=== PATIENT | female | born 1945 | race Caucasian/White ===

== ENCOUNTER 2016-04-23 13:13 | Inpatient (IN) | payer OTHER ==
[~2016-04-23] VITALS: Ht 149.9 cm; Wt 48.4 kg
[~2016-04-23 13:13] MED LIST: CALC600T21 PO; SIMV40TA2 PO; VITA100037 PO; [UNRECOGNIZED DRUG - CODE] TD
[2016-04-23] MEDS ORDERED: ONDANSETRON 4MG/2ML VIAL (J2405) As Ordered ONE (15:07)
[2016-04-23 15:31] LABS: BASO # 0.4 K/mm3 (0.0-0.2); BASO % 1.5 % (0.0-1.0); EOS # 0.1 K/mm3 (0.0-0.50); EOS % 0.2 % (0.0-3.0); LARGE UNSTAINED CELL # 0.2 K/mm3 (0.0-0.4); LARGE UNSTAINED CELL % 0.6 % (0.0-4.0); LYMPH % 2.8 % (24.0-44.0); MEAN CORPUSCULAR HEMOGLOBIN 23.9 pg (27.0-33.0); MEAN CORPUSCULAR VOLUME 74.7 fl (80.0-96.0); MONO # 1.7 K/mm3 (0.0-0.8); MONO % 5.9 % (0.0-5.0); NEUTROPHILS # 25.6 K/mm3 (1.8-7.7); NEUTROPHILS % 88.9 % (36.0-66.0); PLATELET COUNT, AUTOMATED 509 k/mm3 (150-450); RED CELL DISTRIBUTION WIDTH 13.9 % (11.5-14.5); WHITE BLOOD COUNT 28.8 K/mm3 (4.0-10.0)
[2016-04-23 15:38] LABS: INR 1.01
[2016-04-23 15:56] LABS: ALBUMIN/GLOBULIN RATIO 0.83 (1.00-1.93); ALKALINE PHOSPHATASE 62 U/L (45-117); ALT/SGPT 16 U/L (12-78); ANION GAP 13 MEQ/L (8-16); AST/SGOT 8 U/L (15-37); BILIRUBIN,DIRECT 0.1 MG/DL (0.0-0.2); BILIRUBIN,TOTAL 0.6 MG/DL (0.2-1.0); BLOOD UREA NITROGEN 26 MG/DL (7-18); CALCIUM LEVEL 10.1 MG/DL (8.8-10.2); CARBON DIOXIDE LEVEL 31 MEQ/L (21-32); CHLORIDE LEVEL 90 MEQ/L (98-107); CREATININE FOR GFR 1.12 MG/DL (0.55-1.02); GLOMERULAR FILTRATION RATE 51.3 (>45); GLUCOSE, FASTING 117 MG/DL (80-110); POTASSIUM SERUM 3.9 MEQ/L (3.5-5.1); SODIUM LEVEL 134 MEQ/L (136-145); TOTAL PROTEIN 8.8 GM/DL (6.4-8.2)
[2016-04-23] MEDS ORDERED: ISOVUE-370 76% 100ML VIAL (Q9967) As Ordered ONE (16:11)
--- NOTE | 2016-04-23 16:26 | REP ---
Clinical: Cough. Technique: PA and lateral. Comparison: 05/08. Findings: Subtle medial right basilar atelectasis cannot be excluded and should be correlated with auscultation. No further consolidation, effusion, or pneumothorax. Mediastinum and cardiac silhouette normal. Skeletal structures intact. Impression: Subtle medial right basilar atelectasis cannot be excluded. Signed by Shay Block MD 04/23/2016 04:17 P
[2016-04-23] MEDS ORDERED: PRED20TA PO (16:35)
[2016-04-23] MEDS ORDERED: ANAS1TAB PO (16:35)
[2016-04-23] MEDS ORDERED: BIOT10005 PO (16:35)
[2016-04-23] MEDS ORDERED: SIMV20TA2 PO (16:35)
[2016-04-23] MEDS ORDERED: CALC600T10 PO (16:35)
[2016-04-23] MEDS ORDERED: AZIT250T3 PO (16:35)
[2016-04-23] MEDS ORDERED: FISH5CAP PO (16:35)
[2016-04-23] MEDS ORDERED: PROA1AER INH (16:35)
--- NOTE | 2016-04-23 16:45 | REP ---
Clinical: Abdominal pain. Technique: Axial contrast enhanced images from the lung bases to the pubic symphysis using 100 ml Isovue 370 intravenous contrast material with coronal and sagittal re-formations. Comparison: 11/12/2015. Findings: There is dilatation to the proximal jejunum secondary to obstruction by a moderate segment of mid jejunum demonstrating mural thickening and perienteric stranding along with diffuse adjacent mesenteric adenopathy (images 36 - 85) there is associated small amount of ascites within the pelvis. The remainder of the small large bowel is relatively normal in appearance. Liver, spleen, pancreas, gallbladder, bilateral adrenal glands and kidneys are normal. Pelvis demonstrates normal bladder and evidence for prior hysterectomy. No free air. Vascular structures demonstrate mild atherosclerotic changes without aneurysm. Skeletal structures demonstrate degenerative changes without focal osseous abnormality. Lung bases demonstrate right middle lobe and right lower lobe subtle infiltrates which may reflect acute versus resolving pneumonia. Impression: 1. Focal area of jejunal thickening with inflammatory stranding and adenopathy causing proximal obstruction and dilatation to the proximal jejunum. Differential diagnosis includes malignancy including lymphoma as well as infectious/inflammatory enteritis. Small amount of free fluid without drainable collection/abscess noted in the pelvis. 2. Subtle right basilar and right middle lobe alveolar infiltrates suggesting early acute versus resolving pneumonia. Signed by Shay Block MD 04/23/2016 04:37 P
[2016-04-23] MEDS ORDERED: ZOSYN 3.375 GM VIAL (J2543) As Ordered ONE (18:15)
[2016-04-23] MEDS ORDERED: KETOROLAC 30 MG/ML VIAL (J1885) IV PRN (21:30)
[2016-04-23] MEDS ORDERED: MORPHINE 2 MG/ML 1ML SYRINGE IV PRN (21:30)
--- NOTE | 2016-04-23 22:15 | EDDOCDS ---
Physician Documentation [facility] Name: Patricia Sargent Age: 70 yrs Sex: Female : 1945 Arrival Date: 04/23/2016 Time: 13:13 Bed 15 Private MD: Orlando Waggoner Disposition: 04/23/16 18:16 Hospitalization ordered by Nael Amaya for Inpatient Admission. Preliminary diagnosis are Upper abdominal pain, unspecified, Vomiting, Other intestinal obstruction. - Bed requested for 4 [place]. - Status is Inpatient Admission. [facility] [place] - Condition is Stable. - Problem is new. - Symptoms are unchanged. Historical: - Allergies: no known allergies; - Home Meds: 1. Zocor 20 mg Oral tab 1 tab once daily (Last dose: 04/18/2016) 2. anastrozole 1 mg oral tab 1 tab once daily (Last dose: 04/18/2016) 3. simvastatin 20 mg Oral tab 1 tab once daily hasn't taken due to vomiting 4. albuterol sulfate 90 mcg/actuation Inhl aepb 2 puffs every 4-6 hours 5. prednisone 20 mg Oral tab once daily for 5 days 6. azithromycin 1 gram Oral pack 1 packet daily for 5 days 7. Fish Oil 720-1,200 mg Oral cap daily 8. Calcium Citrate Oral daily 9. biotin 10,000 mcg oral cap daily - PMHx: Cancer, Breast - Right; Cancer, Breast - Left; High Cholesterol; - PSHx: Mastectomy- Bilateral; breast reconstruction surgery; - Social history: Smoking status: Patient states was never smoker of tobacco. No barriers to communication noted, The patient speaks fluent [place]. - Family history: Not pertinent. - : The pt / caregiver states he / she is not on anticoagulants. Home medication list is obtained from the patient. - Exposure Risk Screening:: None identified. Vital Signs: 04/23 13:16 BP 149 / 85; Pulse 119; Resp 18; Temp 96.4(O); Pulse Ox 99% on R/A; Weight 45.36 kg / sar1 100 lbs; Height 4 ft. 11 in. (149.86 cm); Pain 0/10; 18:25 BP 134 / 68; Pulse 103; Resp 20; Temp 98.0(O); Pulse Ox 96% on R/A; Pain 0/10; jml1 20:31 BP 152 / 69; Pulse 95; Resp 20; Temp 98.3(O); Pulse Ox 97% on R/A; Pain 0/10; jmv 21:53 BP 130 / 68; Pulse 91; Resp 16; Temp 98; Pulse Ox 95% ; Pain 0/10; cjh 13:16 Body Mass Index 20.20 (45.36 kg, 149.86 cm) sar1 MDM: 15:00 NS 0.9% 1000 ml IV at bolus once ordered. cc10 15:00 Ondansetron 4 mg IVP once ordered. cc10 15:00 IV Saline Lock ordered. cc10 15:00 Undress patient appropriately for examination ordered. cc10 15:01 Basic Metabolic Profile Ordered. EDMS 15:01 CBC with Diff Ordered. EDMS 15:01 Cardiac Injury Profile Ordered. EDMS 15:01 Lipase Ordered. EDMS 15:01 Liver Profile Ordered. EDMS 15:01 Partial Thromboplastin Time Ordered. EDMS 15:01 Prothrombin Time Profile\E\INR Ordered. EDMS 15:01 Troponin Ordered. EDMS 15:01 Urinalysis Ordered. EDMS 15:01 Urine Culture Ordered. EDMS 15:02 NOTHING BY MOUTH+DIET ordered. EDMS 15:06 ECG WITH READING ER PHYS+CARDIAG ordered. EDMS 15:50 Financial registration complete. [email or web address] 15:50 [facility] [place] was scanned into [employer] and attached to record. [email or web address] 15:59 Basic Metabolic Profile Reviewed. cc10 15:59 CBC with Diff Reviewed. cc10 15:59 Liver Profile Reviewed. cc10 15:59 Cardiac Injury Profile Reviewed. cc10 15:59 Lipase Reviewed. cc10 15:59 Partial Thromboplastin Time Reviewed. cc10 15:59 Prothrombin Time Profile\E\INR Reviewed. cc10 15:59 Troponin Reviewed. cc10 16:02 Chest, 2 View (pa\E\lat) Ordered. EDMS 16:02 CT ABD & PELVIS: IV Contrast Only Ordered. EDMS 16:03 BED REQUEST+ADM ordered. EDMS 18:13 Piperacillin-Tazobactam 3.375 grams IVPB once over 30 mins; dilute in 50mL of NS or D5W mo1 ordered. 18:13 NS 0.9% 1000 ml IV at 250 mL/hr continuous ordered. mo1 21:28 Admission / Observation Status ordered. EDMS 21:28 NPO DIET ordered. EDMS 21:28 BASIC METABOLIC PROFILE Ordered. EDMS 21:32 VITAMIN B12 LEVEL Ordered. EDMS 21:32 FOLATE Ordered. EDMS 21:32 IRON (FE) Ordered. EDMS 21:32 FERRITIN Ordered. EDMS 21:32 TOTAL IRON BINDING CAPACIT Ordered. EDMS Administered Medications: 15:14 Drug: Ondansetron 4 mg [ondansetron HCl 2 mg/mL intravenous solution (2 mL)] Route: jmb IVP; Site: right antecubital; 15:15 Drug: NS 0.9% 1000 ml [sodium chloride 0.9 % intravenous solution] Route: IV; Rate: jmb bolus; Site: right antecubital; 18:24 Drug: Piperacillin-Tazobactam 3.375 grams [piperacillin-tazobactam 3.375 gram jmb intravenous solution] Route: IVPB; Infused Over: 30 mins; Site: right antecubital; 18:24 Drug: NS 0.9% 1000 ml [sodium chloride 0.9 % intravenous solution] Route: IV; Rate: 250 jmb mL/hr; Site: right antecubital; Signatures: Dispatcher [employer] EDMS Heidi Walker RN RN Margarita ArriolaRN RN Rob Hawkins PA PA mo1 Augustus Caldera PA-C PABrielle [id number] Allyson Ordonez RN RN [id number] Melanie Vu, Reg Reg [email or web address] Alireza Cruz RN The chart was reviewed and I authenticate all verbal orders and agree with the evaluation and treatment provided.Corrections: (The following items were deleted from the chart) 18:16 16:03 LACTIC ACID LEVEL, LACTATE+LAB ordered. EDMS EDMS Attachments: 15:50 [facility] [place] Agreement [email or web address]
--- NOTE | 2016-04-23 22:15 | EDDOCDS ---
Nurse's Notes [facility] Name: Patricia Sargent Age: 70 yrs Sex: Female : 1945 Arrival Date: 04/23/2016 Time: 13:13 Bed 15 Private MD: Orlando Waggoner Diagnosis: Upper abdominal pain, unspecified;Vomiting;Other intestinal obstruction Presentation: 04/23 13:31 Presenting complaint: Patient states: that she is unable to eat, weight loss, vomiting. ms18 Pt reports 20 lost since February. PT states that she was seen at urgent care yesterday and told that she might have pneumonia. She also states that her cancer doctor took her off of her "cancer pill" 6 days ago. Adult Sepsis Screening: The patient does not have new or worsening altered mentation. Patient's respiratory rate is less than 22. Systolic blood pressure is greater than 100. Patient has a qSOFA score of 0- Negative Sepsis Screen. Suicide/Homicide risk assessment- the patient denies having any suicidal and/or homicidal ideations and does not present with any other emotional, behavioral or mental health complaints. 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 Transition of care: patient was not received from another setting of care. 13:31 Acuity: GEE Level 3 ms18 13:31 Method Of Arrival: Walkin/Carried/Asstd ms18 Triage Assessment: 13:40 General: Appears in no apparent distress, Behavior is appropriate for age, cooperative. ms18 Pain: Denies pain. Neurological: Level of Consciousness is awake, alert, obeys commands, Oriented to person, place, time. Respiratory: Airway is patent Respiratory effort is even, unlabored. GI: Reports nausea, vomiting, intolerance of food, intolerance of fluids. Derm: Skin is pink, warm & dry. Historical: - Allergies: no known allergies; - Home Meds: 1. Zocor 20 mg Oral tab 1 tab once daily (Last dose: 04/18/2016) 2. anastrozole 1 mg oral tab 1 tab once daily (Last dose: 04/18/2016) 3. simvastatin 20 mg Oral tab 1 tab once daily hasn't taken due to vomiting 4. albuterol sulfate 90 mcg/actuation Inhl aepb 2 puffs every 4-6 hours 5. prednisone 20 mg Oral tab once daily for 5 days 6. azithromycin 1 gram Oral pack 1 packet daily for 5 days 7. Fish Oil 720-1,200 mg Oral cap daily 8. Calcium Citrate Oral daily 9. biotin 10,000 mcg oral cap daily - PMHx: Cancer, Breast - Right; Cancer, Breast - Left; High Cholesterol; - PSHx: Mastectomy- Bilateral; breast reconstruction surgery; - Social history: Smoking status: Patient states was never smoker of tobacco. No barriers to communication noted, The patient speaks fluent Frisian. - Family history: Not pertinent. - : The pt / caregiver states he / she is not on anticoagulants. Home medication list is obtained from the patient. - Exposure Risk Screening:: None identified. Screenin:15 Screening information is obtained from the patient. Fall risk: At risk due to age, jmb weakness. Assistance ADL's: requires no assistance with activities of daily living. Abuse/DV Screen: The patient / caregiver reports he/she is: not in a situation that causes fear, pain or injury. Nutritional screening: No deficits noted. home support is adequate. 22:05 Advance Directives: Currently, there is a health care proxy, Minoo Cale, Friend. There cjh is no active DNR order. There is no living will. There is no Power of Laser Printing Operator. Assessment: 15:15 General: Appears in no apparent distress, Behavior is appropriate for age, cooperative. jmb Pain: Denies pain. Neurological: Level of Consciousness is awake, alert, obeys commands, Oriented to person, place, time, Diagnostic Technician are equal bilaterally Speech is normal, Facial symmetry appears normal, Facial symmetry: tongue is midline. Cardiovascular: Capillary refill < 3 seconds Heart tones present Pulses are all present. Rhythm is regular. Respiratory: Airway is patent Respiratory effort is even, unlabored, Respiratory pattern is regular, symmetrical. Respiratory: Breath sounds are clear bilaterally. GI: Abdomen is non- distended Bowel sounds present X 4 quads. Abd is soft X 4 quads. Derm: Skin is pink, warm & dry. Musculoskeletal: Range of motion intact in all extremities. 16:12 General: Appears in no apparent distress, Behavior is appropriate for age, cooperative, jmb Patient returned from X-ray, going to CT at this time. No voiced complaints at this time.. Neurological: Level of Consciousness is awake, alert, obeys commands, Oriented to person, place, time. Respiratory: Airway is patent Respiratory effort is even, unlabored, Respiratory pattern is regular, symmetrical. 16:45 General: Appears in no apparent distress, comfortable, Behavior is appropriate for age, jmb cooperative, Patient laying on stretcher, appears comfortable. Voices no complaints at this time. . Neurological: Level of Consciousness is awake, alert, obeys commands, Oriented to person, place, time. Respiratory: Airway is patent Respiratory effort is even, unlabored, Respiratory pattern is regular, symmetrical. 17:37 General: Appears in no apparent distress, comfortable, Behavior is appropriate for age, hs1 cooperative, Pt resting in stretcher awaiting further plan of care. Pt aware of waiting for surgeon to call back for consult with provider. No other needs noted at this time. Pt is resting and has not vomited since her arrival to [facility]. . 18:12 General: XIN Becerra in to see her at the present time regarding further plan of care. No hs1 needs noted at present and patient remains comfortable. . 19:30 General: family at bedside, warm blankets provided, Provider at bedside to discuss [facility] treatment plan with patient, no complaints voiced. 20:27 General: Appears in no apparent distress, comfortable, Behavior is appropriate for age, cjh cooperative. Pain: Denies pain. Neurological: Level of Consciousness is awake, alert, Oriented to person, place, time. Respiratory: Airway is patent Respiratory effort is even, unlabored, Respiratory pattern is regular, symmetrical, Breath sounds are clear bilaterally. GI: Abdomen is non- distended Bowel sounds hypoactive in right upper quadrant, left upper quadrant, right lower quadrant and left lower quadrant Abd is soft and non tender X 4 quads. 21:53 General: Appears in no apparent distress, comfortable, Behavior is appropriate for age, cjh cooperative, talking with friends and family on phone, voicing anxiety and nervousness regarding possible diagnosis, declines offer to request pain or anxiety medications, awaiting admission. Vital Signs: 13:16 BP 149 / 85; Pulse 119; Resp 18; Temp 96.4(O); Pulse Ox 99% on R/A; Weight 45.36 kg; sar1 Height 4 ft. 11 in. (149.86 cm); Pain 0/10; 18:25 BP 134 / 68; Pulse 103; Resp 20; Temp 98.0(O); Pulse Ox 96% on R/A; Pain 0/10; jml1 20:31 BP 152 / 69; Pulse 95; Resp 20; Temp 98.3(O); Pulse Ox 97% on R/A; Pain 0/10; jmv 21:53 BP 130 / 68; Pulse 91; Resp 16; Temp 98; Pulse Ox 95% ; Pain 0/10; cjh 13:16 Body Mass Index 20.20 (45.36 kg, 149.86 cm) [facility] [place] Vitals: 13:16 Log In Time: April 23, 2016 at 13:16. [facility] ED Course: 13:15 Patient visited by Nadja Toledo, Brickmason Apprentice. sar1 13:15 Patient moved to Waiting sar1 13:16 Orlando Waggoner MD is Private Physician. sar1 13:17 Patient moved to Pre RCE sar1 13:33 Triage Initiated ms18 14:35 Patient moved to Triage 3 rn1 14:46 Patient visited by Tejal Khan, EMI. ttb 14:52 Augustus Caldera PA-C is PHCP. cc10 14:52 Imani Malone MD is Attending Physician. cc10 14:52 Patient visited by Augustus Caldera PA-C. cc10 14:52 Patient visited by Augustus Caldera PA-C. cc10 15:02 Ami Beard, RN is Primary Nurse. ms18 15:02 Patient moved to I2 / M2 ms18 15:14 Basic Metabolic Profile Sent. jmb 15:14 CBC with Diff Sent. jmb 15:14 Cardiac Injury Profile Sent. jmb 15:14 Lipase Sent. jmb 15:14 Liver Profile Sent. jmb 15:14 Partial Thromboplastin Time Sent. jmb 15:14 Prothrombin Time Profile\\E\\INR Sent. jmb 15:14 Troponin Sent. jmb 15:15 The patient / caregiver is instructed regarding the plan of care and ED course. jmb 15:15 Inserted saline lock: 20 gauge in right antecubital area and blood collected. The [facility] patient tolerated the procedure well. Labs drawn. (by ED staff). Sent per order to lab. 15:18 Patient visited by Lazaro Roque. jml1 15:18 EKG done. (by ED staff). Reviewed by Augustus Caldera PA-C. jml1 15:19 Patient visited by Alireza Cruz RN. jmb 15:50 [facility] Payment Agreement was scanned into [employer] and attached to record. ks16 16:13 Patient visited by Alireza Cruz RN. jmb 16:31 Chest, 2 View (pa\\E\\lat) Returned. EDMS 16:45 Patient visited by Alireza Cruz RN. jmb 17:01 CT ABD & PELVIS: IV Contrast Only Returned. EDMS 17:37 Patient visited by Suri Wing RN. hs1 18:12 Patient visited by Suri Wing RN. hs1 18:13 PHCP role handed off by Augustus Caldera PA-C mo1 18:13 Rob Moore PA is PHCP. mo1 18:16 Nael Amaya is Hospitalizing Provider. mo1 18:26 Patient visited by Lazaro Rouqe. jml1 18:49 Primary Nurse role handed off by Ami Beard RN jc4 19:13 Patient moved to 15 hs1 20:32 Patient visited by Curly Hancock PCA. jmv 21:53 No procedures done that require assistance. [facility] Administered Medications: 15:14 Drug: Ondansetron 4 mg [ondansetron HCl 2 mg/mL intravenous solution (2 mL)] Route: jmb IVP; Site: right antecubital; 15:15 Drug: NS 0.9% 1000 ml [sodium chloride 0.9 % intravenous solution] Route: IV; Rate: jmb bolus; Site: right antecubital; 18:24 Drug: Piperacillin-Tazobactam 3.375 grams [piperacillin-tazobactam 3.375 gram jmb intravenous solution] Route: IVPB; Infused Over: 30 mins; Site: right antecubital; 18:24 Drug: NS 0.9% 1000 ml [sodium chloride 0.9 % intravenous solution] Route: IV; Rate: 250 jmb mL/hr; Site: right antecubital; Order Results: Lab Order: Basic Metabolic Profile; SPEC'M 04/23/16 15:12 Test: GLUCOSE, FASTING; Value: 117; Range: 80-110; Abnormal: Above high normal; Units: MG/DL; Status: F Test: BLOOD UREA NITROGEN; Value: 26; Range: 7-18; Abnormal: Above high normal; Units: MG/DL; Status: F Test: CREATININE FOR GFR; Value: 1.12; Range: 0.55-1.02; Abnormal: Above high normal; Units: MG/DL; Status: F Test: GLOMERULAR FILTRATION RATE; Value: 51.3; Range: >45; Status: F Test: SODIUM LEVEL; Value: 134; Range: 136-145; Abnormal: Below low normal; Units: MEQ/L; Status: F Test: POTASSIUM SERUM; Value: 3.9; Range: 3.5-5.1; Units: MEQ/L; Status: F Test: CHLORIDE LEVEL; Value: 90; Range: 98-107; Abnormal: Below low normal; Units: MEQ/L; Status: F Test: CARBON DIOXIDE LEVEL; Value: 31; Range: 21-32; Units: MEQ/L; Status: F Test: ANION GAP; Value: 13; Range: 8-16; Units: MEQ/L; Status: F Test: CALCIUM LEVEL; Value: 10.1; Range: 8.8-10.2; Units: MG/DL; Status: F Test Note: ; Units are mL/min/1.73 m2 Chronic Kidney Disease Staging per NKF: Stage I & II GFR >=60 Normal to Mildly Decreased Stage III GFR 30-59 Moderately Decreased Stage IV GFR 15-29 Severely Decreased Stage V GFR <15 Very Little GFR Left ESRD GFR <15 on [facility] Lab Order: CBC with Diff; SPEC'M 04/23/16 15:12 Test: WHITE BLOOD COUNT; Value: 28.8; Range: 4.0-10.0; Abnormal: Above high normal; Units: K/mm3; Status: F Test: RED BLOOD COUNT; Value: 6.13; Range: 4.00-5.40; Abnormal: Above high normal; Units: M/mm3; Status: F Test: HEMOGLOBIN; Value: 14.7; Range: 12.0-16.0; Units: g/dl; Status: F Test: HEMATOCRIT; Value: 45.8; Range: 36.0-47.0; Units: %; Status: F Test: MEAN CORPUSCULAR VOLUME; Value: 74.7; Range: 80.0-96.0; Abnormal: Below low normal; Units: fl; Status: F Test: MEAN CORPUSCULAR HEMOGLOBIN; Value: 23.9; Range: 27.0-33.0; Abnormal: Below low normal; Units: pg; Status: F Test: MEAN CORPUSCULAR HGB CONC; Value: 32.0; Range: 32.0-36.5; Units: g/dl; Status: F Test: RED CELL DISTRIBUTION WIDTH; Value: 13.9; Range: 11.5-14.5; Units: %; Status: F Test: PLATELET COUNT, AUTOMATED; Value: 509; Range: 150-450; Abnormal: Above high normal; Units: k/mm3; Status: F Test: NEUTROPHILS %; Value: 88.9; Range: 36.0-66.0; Abnormal: Above high normal; Units: %; Status: F Test: LYMPH %; Value: 2.8; Range: 24.0-44.0; Abnormal: Below low normal; Units: %; Status: F Test: MONO %; Value: 5.9; Range: 0.0-5.0; Abnormal: Above high normal; Units: %; Status: F Test: EOS %; Value: 0.2; Range: 0.0-3.0; Units: %; Status: F Test: BASO %; Value: 1.5; Range: 0.0-1.0; Abnormal: Above high normal; Units: %; Status: F Test: LARGE UNSTAINED CELL %; Value: 0.6; Range: 0.0-4.0; Units: %; Status: F Test: NEUTROPHILS #; Value: 25.6; Range: 1.8-7.7; Abnormal: Above high normal; Units: K/mm3; Status: F Test: LYMPH #; Value: 1.0; Range: 1.5-4.5; Abnormal: Below low normal; Units: K/mm3; Status: F Test: MONO #; Value: 1.7; Range: 0.0-0.8; Abnormal: Above high normal; Units: K/mm3; Status: F Test: EOS #; Value: 0.1; Range: 0.0-0.50; Units: K/mm3; Status: F Test: BASO #; Value: 0.4; Range: 0.0-0.2; Abnormal: Above high normal; Units: K/mm3; Status: F Test: LARGE UNSTAINED CELL #; Value: 0.2; Range: 0.0-0.4; Units: K/mm3; Status: F Lab Order: Cardiac Injury Profile; [facility]' 04/23/16 15:12 Test: CPK CREATINE PHOSPHOKINASE; Value: 27; Range: 26-192; Units: U/L; Status: F Test: CK-MB VALUE MASS; Value: 1.0; Range: 0.0-3.6; Units: NG/ML; Status: F Test: MB/CK RELATIVE INDEX; Value: 3.70; Range: < OR =4; Status: F Test Note: ; DIAGNOSIS CRITERIA MMB ng/ml Relative Index (RI) NON-AMI < or = 5 N/A AG[place]LLON ZONE > 5 < or = 4 AMI > 5 > 4 Lab Order: Lipase; [facility]' 04/23/16 15:12 Test: LIPASE; Value: 181; Range: 73-393; Units: U/L; Status: F Lab Order: Liver Profile; [facility]' 04/23/16 15:12 Test: AST/SGOT; Value: 8; Range: 15-37; Abnormal: Below low normal; Units: U/L; Status: F Test: ALT/SGPT; Value: 16; Range: 12-78; Units: U/L; Status: F Test: ALKALINE PHOSPHATASE; Value: 62; Range: 45-117; Units: U/L; Status: F Test: BILIRUBIN,TOTAL; Value: 0.6; Range: 0.2-1.0; Units: MG/DL; Status: F Test: BILIRUBIN,DIRECT; Value: 0.1; Range: 0.0-0.2; Units: MG/DL; Status: F Test: TOTAL PROTEIN; Value: 8.8; Range: 6.4-8.2; Abnormal: Above high normal; Units: GM/DL; Status: F Test: ALBUMIN; Value: 4.0; Range: 3.2-5.2; Units: GM/DL; Status: F Test: ALBUMIN/GLOBULIN RATIO; Value: 0.83; Range: 1.00-1.93; Abnormal: Below low normal; Status: F Lab Order: Partial Thromboplastin Time; [facility]' 04/23/16 15:12 Test: PARTIAL THROMBOPLASTIN TIME; Value: 26.8; Range: 26.6-37.1; Units: SECONDS; Status: F Lab Order: Prothrombin Time Profile\\E\\INR; SPEC'M 04/23/16 15:12 Test: PROTHROMBIN TIME; Value: 13.4; Range: 12.3-14.5; Units: SECONDS; Status: F Test: INR; Value: 1.01; Status: F Test Note: ; THERAPUTIC HUMAN INR VALUES INDICATIONS NORMAL RANGES PROPHYLAXIS/TREATMENT OF: VENOUS THROMBOSIS 2.0-3.0 PULMONARY EMBOLISM 2.0-3.0 PREVENTION OF SYSTEMIC EMBOLISM FROM: TISSUE HEART VALVES 2.0-3.0 ACUTE MYOCARDIAL INFARCTION 2.0-3.0 VALVULAR HEART DISEASE 2.0-3.0 ATRIAL FIBRILLATION 2.0-3.0 MECHANICAL VALVES(HIGH RISK) 2.5-3.5 RECURRENT MYOCARDIAL INFARCTION 2.5-3.5 Lab Order: Troponin; SPEC'M 04/23/16 15:12 Test: TROPONIN I; Value: < 0.02; Range: < 0.10; Units: NG/ML; Status: F Test Note: ; Troponin I Reference Interval for [employer] water systems LOCI: 99th Percentile= 0.00-0.045 ng/ml Risk Stratification: <= 0.10 ng/ml Decreased Risk for Adverse Clinical Events. 0.10-1.50 ng/ml Increased Risk for Adverse Clinical Events. Evaluation of additional criterion and/or repeat testing in 2-6 hours is suggested to rule out myocardial damage. >= 1.50 ng/ml Indicative of Myocardial Injury. Radiology Order: CT ABD & PELVIS: IV Contrast Only Test: CT ABD & PELVIS: IV Contrast Only REASON FOR EXAMINATION: Abdomen Pain; Clinical: Abdominal pain.; ; Technique: Axial contrast enhanced images from the lung bases to the pubic; symphysis using 100 ml Isovue 370 intravenous contrast material with coronal and; sagittal re-formations.; ; Comparison: 11/12/2015.; ; Findings:; There is dilatation to the proximal jejunum secondary to obstruction by a; moderate segment of mid jejunum demonstrating mural thickening and perienteric; stranding along with diffuse adjacent mesenteric adenopathy (images 36 - 85); there is associated small amount of ascites within the pelvis. The remainder of; the small large bowel is relatively normal in appearance.; ; Liver, spleen, pancreas, gallbladder, bilateral adrenal glands and kidneys are; normal. Pelvis demonstrates normal bladder and evidence for prior hysterectomy.; No free air. Vascular structures demonstrate mild atherosclerotic changes; without aneurysm. Skeletal structures demonstrate degenerative changes without; focal osseous abnormality.; ; Lung bases demonstrate right middle lobe and right lower lobe subtle infiltrates; which may reflect acute versus resolving pneumonia.; ; Impression:; 1. Focal area of jejunal thickening with inflammatory stranding and adenopathy; causing proximal obstruction and dilatation to the proximal jejunum.; Differential diagnosis includes malignancy including lymphoma as well as; infectious/inflammatory enteritis. Small amount of free fluid without drainable; collection/abscess noted in the pelvis.; 2. Subtle right basilar and right middle lobe alveolar infiltrates suggesting; early acute versus resolving pneumonia.; ; ; Signed by; Shay Block MD 04/23/2016 04:37 P; Radiology Order: Chest, 2 View (pa\\E\\lat) Test: Chest, 2 View (pa\\E\\lat) REASON FOR EXAMINATION: Cough; Clinical: Cough.; ; Technique: PA and lateral.; ; Comparison: 05/08.; ; Findings:; Subtle medial right basilar atelectasis cannot be excluded and should be; correlated with auscultation. No further consolidation, effusion, or; pneumothorax. Mediastinum and cardiac silhouette normal. Skeletal structures; intact.; ; Impression:; Subtle medial right basilar atelectasis cannot be excluded.; ; ; Signed by; Shay Block MD 04/23/2016 04:17 P; Outcome: 18:16 Decision to Hospitalize by Provider. mo1 21:53 CT Study completed. [facility] 22:05 Discharge Assessment: Patient awake, alert and oriented x 3. No cognitive and/or [facility] functional deficits noted. Patient verbalized understanding of disposition instructions. patient administered narcotics - no. The following High Risk Discharge criteria are identified: None. Admitted to Med/Surg accompanied by tech, via stretcher. Condition: good Condition: stable Condition: improved. Property :Personal belongings accompany Pt. 22:14 Patient left the ED. [facility] Signatures: Dispatcher [employer] EDMS Suri Wing RN RN hs1 Ami Beard RN RN jc4 Lazaro Roque jml1 Margarita Marrero,RN RN cjh Tejal Khan RN RN ttb Rob Moore PA PA yue1 Alireza Cruz,RN RN jmb Augustus Caldera, ZACHC PABridgetC cc10 Allyson Ordonez,EMI RN ms18 Nadja Toledo, Brickmason Apprentice Unit sar1 Francisco, Nael rn1 Melanie Vu, Reg Reg ks16 Hancock, Curly, INSULATION MANAGER INSULATION MANAGER jmv MTDD
[2016-04-23 22:23] VITALS: BP 139/67
[2016-04-23] MEDS: PANTOPRAZOLE 40MG INJ (PROTONIX) (C9113) IV SCH (22:44)
[2016-04-23] MEDS: LR 1,000 ML IV SCH (22:44)
[2016-04-24] VITALS (12 sets, daily range): BP systolic 104–151; BP diastolic 48–79
[2016-04-24] MEDS: LR 1,000 ML IV SCH ×3 (05:21→22:42)
[2016-04-24] MEDS ORDERED: ERTAPENEM SODIUM 1 GM in NS MINI-BAG PLUS 50 ML IV SCH (06:00)
[2016-04-24 06:44] LABS: ANION GAP 10 MEQ/L (8-16); BLOOD UREA NITROGEN 19 MG/DL (7-18); CALCIUM LEVEL 8.6 MG/DL (8.8-10.2); CARBON DIOXIDE LEVEL 28 MEQ/L (21-32); CHLORIDE LEVEL 104 MEQ/L (98-107); CREATININE FOR GFR 0.76 MG/DL (0.55-1.02); FERRITIN 33 NG/ML (8-252); GLOMERULAR FILTRATION RATE > 60.0 (>45); GLUCOSE, FASTING 81 MG/DL (80-110); POTASSIUM SERUM 4.6 MEQ/L (3.5-5.1); SODIUM LEVEL 142 MEQ/L (136-145); TOTAL IRON BINDING CAPACITY 257 UG/DL (250-450)
[2016-04-24] MEDS: PANTOPRAZOLE 40MG INJ (PROTONIX) (C9113) IV SCH (08:17)
--- NOTE | 2016-04-24 10:03 | ECGEPIP ---
Stationary ECG Study [facility] - ED Test Date: 2016-04-23 Pat Name: ELIJAH ADLER Department: Room: - Gender: F Research Neuropsychologist: HANSA : 1945 Requested By: Augustus Caldera PA-C Order Number: [id number] Reading MD: Imani Malone Measurements Intervals [place] Rate: 106 P: 41 NM: 137 QRS: 57 QRSD: 86 T: 40 QT: 319 QTc: 425 Interpretive Statements SINUS TACHYCARDIA NONSPECIFIC T-WAVE ABNORMALITY ABNORMAL RHYTHM ECG NO PRIOR FOR COMPARISON Electronically Signed On 04-24-2016 10:03:11 EST by Imani Malone
[2016-04-24 10:34] LABS: VITAMIN B12 LEVEL 529 PG/ML (247-911)
[2016-04-24 10:35] LABS: FOLATE 9.8 NG/ML (>5.4)
[2016-04-24] MEDS ORDERED: ERTAPENEM 1 GM INJ (INVanz) (J1335) As Ordered ONE (11:42)
[2016-04-24] MEDS ORDERED: fentaNYL 100 MCG/2 ML INJECTION (J3010) As Ordered ONE (12:04)
[2016-04-24] MEDS ORDERED: MIDAZOLAM INJ 2 MG/2 ML VIAL (J2250) As Ordered ONE (12:04)
[2016-04-24] MEDS ORDERED: ePHEDrine SULFATE 25 MG/5 ML(5MG/ML) SYRINGE As Ordered ONE (13:20)
[2016-04-24] MEDS ORDERED: ROCURONIUM BROMIDE 50 MG/5 ML VIAL As Ordered ONE ×2 (13:20→14:02)
[2016-04-24] MEDS ORDERED: fentaNYL 250 MCG/5 ML INJECTION (J3010) As Ordered ONE (13:20)
[2016-04-24] MEDS ORDERED: PROPOFOL 200 MG/20 ML VIAL As Ordered ONE (13:20)
[2016-04-24] MEDS ORDERED: PHENYLephrine HCL 500 MCG/5 ML (100MCG/ML) SYRINGE (J2370) As Ordered ONE ×2 (13:20→14:18)
[2016-04-24] MEDS ORDERED: SUCCINYLCHOLINE 100 MG/5 ML SYRINGE (J0330) As Ordered ONE (13:20)
[2016-04-24] MEDS ORDERED: BUPIVACAINE HCL 0.25% 30 ML VIAL As Ordered ONE (13:20)
[2016-04-24] MEDS ORDERED: LIDOCAINE 2% INJ 100 MG/5 ML SDV (FOR ANES.) As Ordered ONE (13:20)
[2016-04-24] MEDS ORDERED: dexameTHASONE 4 MG/ML 1ML VIAL (J1100) As Ordered ONE (13:40)
[2016-04-24] MEDS ORDERED: ONDANSETRON 4MG/2ML VIAL (J2405) As Ordered ONE (13:41)
[2016-04-24] MEDS ORDERED: GLYCOPYRROLATE INJ 0.2 MG/ML 2 ML VIAL As Ordered ONE (14:36)
[2016-04-24] MEDS ORDERED: FENTANYL 2MCG/ML BUPIVACAINE 0.0625% NACL 250ML CADD As Ordered ONE (14:36)
[2016-04-24] MEDS ORDERED: NEOSTIGMINE 1MG/ML 5 ML SYRINGE (J2710) As Ordered ONE (14:36)
[2016-04-24] MEDS ORDERED: METOCLOPRAMIDE INJ 10MG/2ML VIAL (J2765) IV PRN (15:45)
[2016-04-24] MEDS ORDERED: fentaNYL 100 MCG/2 ML INJECTION (J3010) IV PRN (15:45)
[2016-04-24] MEDS: FENTANYL/BUPIVACAINE/NACL CADD 250 ML EPIDURAL SCH (15:45)
[2016-04-24] MEDS ORDERED: EPIDURAL/PCA KEYS XX PRN (15:45)
[2016-04-24] MEDS ORDERED: ONDANSETRON 4MG/2ML VIAL (J2405) IV PRN (15:45)
[2016-04-24] MEDS ORDERED: LR 1,000 ML IV SCH (15:45)
[2016-04-24] MEDS ORDERED: WALLBOXKEY XX PRN (15:45)
[2016-04-24] MEDS ORDERED: diphenhydrAMINE INJ 50MG/ML VIAL (J1200) IV PRN (15:45)
[2016-04-24] MEDS ORDERED: NALOXONE INJ 0.4 MG/1 ML VIAL (J2310) IV PRN (15:45)
[2016-04-25 02:00] VITALS: BP 132/78
[2016-04-25] MEDS: LR 1,000 ML IV SCH ×2 (05:21→13:31)
[2016-04-25 06:00] VITALS: BP 134/65
[2016-04-25 06:06] LABS: BASO % 0.1 % (0.0-1.0); EOS % 0.3 % (0.0-3.0); LARGE UNSTAINED CELL # 0.2 K/mm3 (0.0-0.4); LARGE UNSTAINED CELL % 1.5 % (0.0-4.0); LYMPH # 0.7 K/mm3 (1.5-4.5); LYMPH % 6.8 % (24.0-44.0); MEAN CORPUSCULAR HEMOGLOBIN 24.3 pg (27.0-33.0); MEAN CORPUSCULAR HGB CONC 31.6 g/dl (32.0-36.5); MONO # 0.7 K/mm3 (0.0-0.8); MONO % 6.6 % (0.0-5.0); NEUTROPHILS # 9.2 K/mm3 (1.8-7.7); NEUTROPHILS % 84.7 % (36.0-66.0); PLATELET COUNT, AUTOMATED 271 k/mm3 (150-450); RED CELL DISTRIBUTION WIDTH 12.8 % (11.5-14.5); WHITE BLOOD COUNT 10.9 K/mm3 (4.0-10.0)
[2016-04-25 06:18] LABS: ALBUMIN/GLOBULIN RATIO 0.71 (1.00-1.93); ALKALINE PHOSPHATASE 32 U/L (45-117); ALT/SGPT 7 U/L (12-78); ANION GAP 10 MEQ/L (8-16); AST/SGOT 5 U/L (15-37); BILIRUBIN,TOTAL 0.4 MG/DL (0.2-1.0); BLOOD UREA NITROGEN 10 MG/DL (7-18); CALCIUM LEVEL 7.8 MG/DL (8.8-10.2); CARBON DIOXIDE LEVEL 25 MEQ/L (21-32); CHLORIDE LEVEL 103 MEQ/L (98-107); CREATININE FOR GFR 0.47 MG/DL (0.55-1.02); GLOMERULAR FILTRATION RATE > 60.0 (>45); GLUCOSE, FASTING 80 MG/DL (80-110); POTASSIUM SERUM 3.9 MEQ/L (3.5-5.1); SODIUM LEVEL 138 MEQ/L (136-145); TOTAL PROTEIN 4.8 GM/DL (6.4-8.2)
--- NOTE | 2016-04-25 08:21 | HPE ---
DATE OF ADMISSION: 04/23/2016 REASON FOR ADMISSION: Proximal jejunal mass with intestinal obstruction. HISTORY OF PRESENT ILLNESS: The patient is a very pleasant 70-year-old woman who presented to the emergency department just after 1:00 p.m. on 04/23/2016 complaining of inability to eat due to nausea and vomiting with weight loss. She reports that her symptoms started essentially back on or about 03/02/2016. She reports that she has lost approximately 20 pounds since then. She indicates that she had a meal at a restaurant on 03/02/2016 and developed some nausea and emesis after this. Over the last 6 weeks or so, she has noticed frequent episodes of nausea with vomiting. She occasionally has some crampy discomfort across the upper abdomen. Over the last week or so in particular, she has noticed increased symptoms. She stopped her anastrozole as adjunct therapy for breast cancer 6 days ago after asking her oncologist if that might be contributing. She was seen in an Urgent [facility] Center on or about 04/22/2016, at which time they made a diagnosis of pneumonia, possibly based on a chest x-ray and started her on prednisone and a azithromycin, though she took one dose of each and has been unable to keep down anything since. She has had persistent nausea and vomiting with inability to tolerate any oral intake really for the last 2 or 3 days. She was brought to the emergency department by a friend who checked on her and discovered that she was not getting any better. She has not had any fevers or chills. She has not had any hematemesis. ALLERGIES: The patient has NO KNOWN DRUG ALLERGIES. HOME MEDICATIONS: Include: - Zocor 20 mg by mouth once daily - anastrozole 1 mg by mouth once daily - albuterol inhaler two puffs every 4-6 hours - prednisone 20 mg by mouth daily - azithromycin 1 gram by mouth daily, which were both prescribed yesterday She is on fish oil, calcium citrate, and biotin daily. MEDICAL HISTORY: Her medical history is significant for a diagnosis of bilateral breast cancers made back in June or July of 1015. This was discovered on a routine screening mammogram, and she had bilateral biopsies and subsequently had bilateral mastectomies. She reports that her lymph nodes were negative and she was told she had stage I disease and did not require any chemotherapy. She has been on anastrozole 1 mg by mouth daily. She has a history of hypercholesterolemia. She has some evidence for some chronic obstructive lung disease. She has had a problem with a kidney stone back in December of this year, which required treatment. The patient's primary physician is Dr. Orlando Waggoner. PAST SURGICAL HISTORY: The patient had undergone a hysterectomy with bilateral salpingo-oophorectomy 30 to 40 years ago. She had a renal stone addressed in December. Back in July 2015, she had bilateral mastectomies and had bilateral breast reconstructions using implants in about October 2015. SOCIAL HISTORY: Patient is . She is accompanied to the emergency department today by a close friend. She denies any smoking history. She denies significant alcohol intake. FAMILY HISTORY: Negative for any history of inflammatory bowel disease. There is a family member who has had colon cancer. REVIEW OF SYSTEMS: Reveals no history of seizure or stroke. She has had no chest pain, palpitations, shortness of breath. She denies any wheezing though she has had a cough recently, which is largely nonproductive. There is no history of deep vein thrombosis (DVT) or pulmonary embolus. She has no history of peptic ulcer disease, hepatitis or pancreatitis. She had a colonoscopy on 06/21/2015, which showed some mild diverticulosis with two small polyps, which were removed and were found to be inflamed polyps without any definite adenomatous change. There is no reported history of significant bone or joint problems. She has no urinary issues currently. PHYSICAL EXAMINATION: Reveals a pleasant, thin-appearing woman lying quietly on the hospital stretcher. Her blood pressure of presentation was 149/85. She was somewhat tachycardiac on presentation and now has a regular pulse and is not tachycardiac. She was afebrile on presentation. Weight is recorded as 45 kg with a height of 4 feet 11 inches, giving her a BMI of approximately 20. She is alert, oriented and cooperative. Sclerae are anicteric. Mucous membranes are moist. Neck is supple without palpable cervical or supraclavicular adenopathy. She does have a left cervical bruit, which sounds like it is probably a transmitted murmur from the heart. Heart exam shows a regular rate and rhythm with a systolic murmur, loudest at the left side of the sternum. The lungs are clear to auscultation bilaterally. Breast exam is deferred. Abdomen is flat. She has an old, slightly widened, low midline scar. She does have bowel sounds present. There appears to be some faint tympany to percussion in the far left upper quadrant. The abdomen is soft throughout without appreciable mass. There is no tenderness appreciated. Extremities show palpable radial and posterior tibial pulses with no peripheral edema identified. Her laboratory studies in the emergency department showed a white blood cell count of 29,000 with a hemoglobin of 15, hematocrit of 46 and a platelet count of 509,000. Her MCV is notably low at 74.7 with an RBC count which is significantly high at 6.13. Her differential count showed 89% neutrophils, 3% lymphocytes, 6% monocytes. Her chemistries revealed a sodium of 134, potassium 3.9, chloride 90 , CO2 of 31, BUN of 26, creatinine 1.1 and a glucose of 117. Her liver function tests were normal with a total protein of 8.8 and an albumin of 4.0. PT/INR and PTT were normal. A chest x-ray was interpreted by the radiologist as showing possibly subtle medial right basilar atelectasis. A CT scan of the abdomen and pelvis was obtained. I reviewed these images personally. There is marked dilation of the proximal jejunum with an obstructing thickened and narrowed segment of jejunum. The obstructing segment is located just to the right of the midline of the abdomen at about the level of the umbilicus. There is diffuse mural thickening in this area. There is a suggestion of some mesenteric adenopathy, as well as the possibility of some smaller nodules in the omentum. The degree of dilation of the proximal jejunum is significant with this area dilated to up to 8 cm in diameter. There are some changes of chronic lung disease. The radiologist also felt there was some subtle right basilar and right middle lobe alveolar infiltrates. IMPRESSION 1. 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 2. Significant weight loss secondary to recurrent nausea and vomiting from diagnosis #1. 3. Probable iron deficiency with marked microcytosis. 4. Markedly elevated white blood cell count of unclear significance. 5. Personal history of breast cancer, bilateral. 6. Hyperlipidemia. 7. Chronic obstructive pulmonary disease. PLAN: The patient was counseled regarding the findings on the CT scan. She clearly has some sort of diffuse thickening of a short segment of the small bowel, which is causing an intestinal obstruction. I think it is most likely that this represents a malignant process. She asked what I felt it was and I advised her that I think it is probably some sort of cancer. This could represent an adenocarcinoma or a lymphoma or some other less common form of malignancy. She wanted to know what the best treatment would be, and I advised her that without a pathologic diagnosis it was impossible to tell her what the long-term treatment or prognosis would be. I do believe it is appropriate to plan for surgery to remove this lesion, which will alleviate her obstruction and also provide us with abundant tissue to make a pathologic diagnosis to determine additional treatment. I would plan on doing this as a semi elective procedure on 04/24/2016. She could be hydrated in the interim to address her electrolyte issues. I suspect that she is iron deficient as a cause for her very low MCV and high number of RBCs with a normal hematocrit. I will obtain some baseline iron studies to assess this. At this point, as the patient has had no recurrent vomiting as long as she has remained nothing by mouth, we will not place a nasogastric tube. The patient was counseled regarding the surgery and the plan for treatment and desires to proceed as I have recommended it. MTDD
[2016-04-25 08:25] VITALS: BP 120/58
--- NOTE | 2016-04-25 10:14 | RO ---
DATE OF PROCEDURE: 04/24/2016 PREOPERATIVE DIAGNOSIS: Obstructing lesion proximal jejunum. 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 PROCEDURE PERFORMED: Exploratory laparotomy with lysis of adhesions, proximal jejunal resection with anastomosis. SURGEON: Dr. Nael Amaya. SPA ASSISTANT MANAGER: Dr. Hood. ANESTHESIA: General and epidural. ESTIMATED BLOOD LOSS: INDICATIONS FOR PROCEDURE: The patient is a 70-year-old woman who presented to the emergency department on April 23 with a complaint of 6-8 weeks of recurring episodes of nausea and vomiting with a roughly [address] scan in the emergency department showed an obstructing lesion in the proximal jejunum with marked dilation of the jejunum at the ligament of Treitz and just below. There was a little bit of free fluid and also a suggestion of multiple small nodules within the omentum. She was admitted and is now for exploratory laparotomy for resection of the obstructing lesion. OPERATIVE PROCEDURE: The patient had an epidural catheter placed preoperatively for postoperative pain management. She was moved to the operating room and placed supine on the operating table. She was placed under general endotracheal anesthesia. A nasogastric tube was placed by anesthesia. A Montano catheter was inserted. Thromboembolic deterrent stockings (TEDS) and sequentials were utilized. The patient's abdomen was prepped and draped in a sterile fashion. The abdomen was entered through a midline incision centered on the umbilicus. The peritoneum was opened and it was possible to feel several small nodules anywhere from 2-4 mm on the inner aspect of the peritoneum anteriorly as well as some small nodules within the underlying omentum. The incision was opened through its length. Palpation revealed that the omentum was adherent down into the pelvis. This area was exposed and the attachments were freed. The omentum was elevated and it was then possible to better appreciate that there were extensive small nodules scattered in the omentum, on the small bowel and down in the pelvis. Palpation of the pelvis revealed that there were significant nodular changes of the sigmoid colon and a loop of small bowel that was adherent down into the pelvis as well. There were nodules on the liver and the liver on the right lobe medially was adherent to the diaphragm. The area of the obstructing nodule was exposed and there was a definite malignant appearing stricture in this area with marked proximal dilation. There were multiple small nodules presenting on the surface of the involved loop. There was what appeared to be significant sadie disease in the mesentery of this loop extending down into the root of the mesentery. The nasogastric tube was palpable in the midbody of the stomach. I elected to proceed with resection of the obstructing lesion but did not feel a resection of the mesentery was necessary given the widespread nature of her apparent malignancy. The bowel proximal to the obstruction was quite thickened and this presented some concern regarding the anastomosis. The bowel was transected proximally through the markedly dilated area by clamping the bowel with TL-90 stapler which was closed and fired and then obstructing the bowel distal to this with a bowel clamp and dividing the bowel with a scalpel. The bowel was divided distal to the obstruction with a linear cutter 100 stapling device. The mesentery was divided between clamps and suture ligated with #0 Vicryl. A small oozing point was also suture ligated with #0 Vicryl. An anastomosis was then performed. Because of the thickness of the proximal portion of bowel, I did not feel a stapled anastomosis was prudent so a hand-sewn two-layer anastomosis was performed within an inner layer of running #3-0 Vicryl and outer layer of interrupted simple sutures of #3-0 silk. This was accomplished and appeared to give a nice anastomosis. The mesenteric defect was closed with #0 Vicryl. The abdomen was irrigated and inspected for hemostasis which was found to be excellent. The omentum was pulled back down over the anastomosis and the small bowel. The fascia was closed with interrupted simple sutures of #1 Vicryl. The skin edges were approximated with a skin stapler. The patient tolerated the procedure well without apparent complication. She was awakened in the operating room, extubated and moved to the recovery room in stable condition. BRENDA
[2016-04-25] MEDS: PANTOPRAZOLE 40MG INJ (PROTONIX) (C9113) IV SCH (11:06)
[2016-04-25 12:08] VITALS: BP 135/58
[2016-04-25 14:15] VITALS: BP 115/50
[2016-04-25] MEDS: FENTANYL/BUPIVACAINE/NACL CADD 250 ML EPIDURAL SCH (18:34)
[2016-04-25] MEDS ORDERED: FENTANYL/BUPIVACAINE/NACL CADD 250 ML EPIDURAL SCH (21:00)
[2016-04-25 22:00] VITALS: BP 158/72
--- NOTE | 2016-04-25 23:16 | EDDOCDS ---
Physician Documentation [facility] Name: Patricia Sargent Age: 70 yrs Sex: Female : 1945 Arrival Date: 04/23/2016 Time: 13:13 Bed 15 Private MD: Orlando Waggoner Disposition: 04/23/16 18:16 Hospitalization ordered by Nael Amaya for Inpatient Admission. Preliminary diagnosis are Upper abdominal pain, unspecified, Vomiting, Other intestinal obstruction. - Bed requested for 4 [place]. - Status is Inpatient Admission. [facility] - Condition is Stable. - Problem is new. - Symptoms are unchanged. Historical: - Allergies: no known allergies; - Home Meds: 1. Zocor 20 mg Oral tab 1 tab once daily (Last dose: 04/18/2016) 2. anastrozole 1 mg oral tab 1 tab once daily (Last dose: 04/18/2016) 3. simvastatin 20 mg Oral tab 1 tab once daily hasn't taken due to vomiting 4. albuterol sulfate 90 mcg/actuation Inhl aepb 2 puffs every 4-6 hours 5. prednisone 20 mg Oral tab once daily for 5 days 6. azithromycin 1 gram Oral pack 1 packet daily for 5 days 7. Fish Oil 720-1,200 mg Oral cap daily 8. Calcium Citrate Oral daily 9. biotin 10,000 mcg oral cap daily - PMHx: Cancer, Breast - Right; Cancer, Breast - Left; High Cholesterol; - PSHx: Mastectomy- Bilateral; breast reconstruction surgery; - Social history: Smoking status: Patient states was never smoker of tobacco. No barriers to communication noted, The patient speaks fluent Moldovan. - Family history: Not pertinent. - : The pt / caregiver states he / she is not on anticoagulants. Home medication list is obtained from the patient. - Exposure Risk Screening:: None identified. Vital Signs: 04/23 13:16 BP 149 / 85; Pulse 119; Resp 18; Temp 96.4(O); Pulse Ox 99% on R/A; Weight 45.36 kg / sar1 100 lbs; Height 4 ft. 11 in. (149.86 cm); Pain 0/10; 18:25 BP 134 / 68; Pulse 103; Resp 20; Temp 98.0(O); Pulse Ox 96% on R/A; Pain 0/10; jml1 20:31 BP 152 / 69; Pulse 95; Resp 20; Temp 98.3(O); Pulse Ox 97% on R/A; Pain 0/10; jmv 21:53 BP 130 / 68; Pulse 91; Resp 16; Temp 98; Pulse Ox 95% ; Pain 0/10; cjh 13:16 Body Mass Index 20.20 (45.36 kg, 149.86 cm) sar1 MDM: 15:00 NS 0.9% 1000 ml IV at bolus once ordered. cc10 15:00 Ondansetron 4 mg IVP once ordered. cc10 15:00 IV Saline Lock ordered. cc10 15:00 Undress patient appropriately for examination ordered. cc10 15:01 Basic Metabolic Profile Ordered. EDMS 15:01 CBC with Diff Ordered. EDMS 15:01 Cardiac Injury Profile Ordered. EDMS 15:01 Lipase Ordered. EDMS 15:01 Liver Profile Ordered. EDMS 15:01 Partial Thromboplastin Time Ordered. EDMS 15:01 Prothrombin Time Profile\E\INR Ordered. EDMS 15:01 Troponin Ordered. EDMS 15:01 Urinalysis Ordered. EDMS 15:01 Urine Culture Ordered. EDMS 15:02 NOTHING BY MOUTH+DIET ordered. EDMS 15:06 ECG WITH READING ER PHYS+CARDIAG ordered. EDMS 15:50 Financial registration complete. [email or web address] 15:50 [facility] Payment Agreement was scanned into [employer] and attached to record. [email or web address] 15:59 Basic Metabolic Profile Reviewed. cc10 15:59 CBC with Diff Reviewed. cc10 15:59 Liver Profile Reviewed. cc10 15:59 Cardiac Injury Profile Reviewed. cc10 15:59 Lipase Reviewed. cc10 15:59 Partial Thromboplastin Time Reviewed. cc10 15:59 Prothrombin Time Profile\E\INR Reviewed. cc10 15:59 Troponin Reviewed. cc10 16:02 Chest, 2 View (pa\E\lat) Ordered. EDMS 16:02 CT ABD & PELVIS: IV Contrast Only Ordered. EDMS 16:03 BED REQUEST+ADM ordered. EDMS 18:13 Piperacillin-Tazobactam 3.375 grams IVPB once over 30 mins; dilute in 50mL of NS or D5W mo1 ordered. 18:13 NS 0.9% 1000 ml IV at 250 mL/hr continuous ordered. mo1 21:28 Admission / Observation Status ordered. EDMS 21:28 NPO DIET ordered. EDMS 21:28 BASIC METABOLIC PROFILE Ordered. EDMS 21:32 VITAMIN B12 LEVEL Ordered. EDMS 21:32 FOLATE Ordered. EDMS 21:32 IRON (FE) Ordered. EDMS 21:32 FERRITIN Ordered. EDMS 21:32 TOTAL IRON BINDING CAPACIT Ordered. EDMS 04/24 05:18 T-Sheet-- Draft Copy was scanned into [employer] and attached to record. hs2 11:35 ECG/EKG was scanned into [employer] and attached to record. gb Administered Medications: 04/23 15:14 Drug: Ondansetron 4 mg [ondansetron HCl 2 mg/mL intravenous solution (2 mL)] Route: jmb IVP; Site: right antecubital; 15:15 Drug: NS 0.9% 1000 ml [sodium chloride 0.9 % intravenous solution] Route: IV; Rate: jmb bolus; Site: right antecubital; 18:24 Drug: Piperacillin-Tazobactam 3.375 grams [piperacillin-tazobactam 3.375 gram jmb intravenous solution] Route: IVPB; Infused Over: 30 mins; Site: right antecubital; 18:24 Drug: NS 0.9% 1000 ml [sodium chloride 0.9 % intravenous solution] Route: IV; Rate: 250 jmb mL/hr; Site: right antecubital; Signatures: Dispatcher MedHo EDTX Heidi Walker, RN RN daSherine Rivera, Reg Reg gb Margarita MarreroRN EMI stevens Rob Moore PA PA mo1 Augustus Caldera, PA-C PA-C cc10 Allyson Ordonez RN RN [id number] Melanie Vu, Reg Reg ks16 Ignacia Daley, Reg Reg hs2 Alireza Cruz RN The chart was reviewed and I authenticate all verbal orders and agree with the evaluation and treatment provided.Corrections: (The following items were deleted from the chart) 18:16 16:03 LACTIC ACID LEVEL, LACTATE+LAB ordered. EDTX EDMS Attachments: 15:50 [facility] Payment Agreement [email or web address] 04/24 05:18 T-Sheet-- Draft Copy hs2 11:35 ECG/EKG Chart Complete MTDD
--- NOTE | 2016-04-25 23:16 | EDDOCDS ---
Physician Documentation [facility] Name: Patricia Sargent Age: 70 yrs Sex: Female : 1945 Arrival Date: 04/23/2016 Time: 13:13 Bed 15 Private MD: Orlando Waggoner Disposition: 04/23/16 18:16 Hospitalization ordered by Nael Amaya for Inpatient Admission. Preliminary diagnosis are Upper abdominal pain, unspecified, Vomiting, Other intestinal obstruction. - Bed requested for 4 [place]. - Status is Inpatient Admission. [facility] - Condition is Stable. - Problem is new. - Symptoms are unchanged. Historical: - Allergies: no known allergies; - Home Meds: 1. Zocor 20 mg Oral tab 1 tab once daily (Last dose: 04/18/2016) 2. anastrozole 1 mg oral tab 1 tab once daily (Last dose: 04/18/2016) 3. simvastatin 20 mg Oral tab 1 tab once daily hasn't taken due to vomiting 4. albuterol sulfate 90 mcg/actuation Inhl aepb 2 puffs every 4-6 hours 5. prednisone 20 mg Oral tab once daily for 5 days 6. azithromycin 1 gram Oral pack 1 packet daily for 5 days 7. Fish Oil 720-1,200 mg Oral cap daily 8. Calcium Citrate Oral daily 9. biotin 10,000 mcg oral cap daily - PMHx: Cancer, Breast - Right; Cancer, Breast - Left; High Cholesterol; - PSHx: Mastectomy- Bilateral; breast reconstruction surgery; - Social history: Smoking status: Patient states was never smoker of tobacco. No barriers to communication noted, The patient speaks fluent [place]ivian. - Family history: Not pertinent. - : The pt / caregiver states he / she is not on anticoagulants. Home medication list is obtained from the patient. - Exposure Risk Screening:: None identified. Vital Signs: 04/23 13:16 BP 149 / 85; Pulse 119; Resp 18; Temp 96.4(O); Pulse Ox 99% on R/A; Weight 45.36 kg / sar1 100 lbs; Height 4 ft. 11 in. (149.86 cm); Pain 0/10; 18:25 BP 134 / 68; Pulse 103; Resp 20; Temp 98.0(O); Pulse Ox 96% on R/A; Pain 0/10; jml1 20:31 BP 152 / 69; Pulse 95; Resp 20; Temp 98.3(O); Pulse Ox 97% on R/A; Pain 0/10; jmv 21:53 BP 130 / 68; Pulse 91; Resp 16; Temp 98; Pulse Ox 95% ; Pain 0/10; cjh 13:16 Body Mass Index 20.20 (45.36 kg, 149.86 cm) sar1 MDM: 15:00 NS 0.9% 1000 ml IV at bolus once ordered. cc10 15:00 Ondansetron 4 mg IVP once ordered. cc10 15:00 IV Saline Lock ordered. cc10 15:00 Undress patient appropriately for examination ordered. cc10 15:01 Basic Metabolic Profile Ordered. EDMS 15:01 CBC with Diff Ordered. EDMS 15:01 Cardiac Injury Profile Ordered. EDMS 15:01 Lipase Ordered. EDMS 15:01 Liver Profile Ordered. EDMS 15:01 Partial Thromboplastin Time Ordered. EDMS 15:01 Prothrombin Time Profile\E\INR Ordered. EDMS 15:01 Troponin Ordered. EDMS 15:01 Urinalysis Ordered. EDMS 15:01 Urine Culture Ordered. EDMS 15:02 NOTHING BY MOUTH+DIET ordered. EDMS 15:06 ECG WITH READING ER PHYS+CARDIAG ordered. EDMS 15:50 Financial registration complete. [email or web address] 15:50 [facility] Payment Agreement was scanned into [employer] and attached to record. [email or web address] 15:59 Basic Metabolic Profile Reviewed. cc10 15:59 CBC with Diff Reviewed. cc10 15:59 Liver Profile Reviewed. cc10 15:59 Cardiac Injury Profile Reviewed. cc10 15:59 Lipase Reviewed. cc10 15:59 Partial Thromboplastin Time Reviewed. cc10 15:59 Prothrombin Time Profile\E\INR Reviewed. cc10 15:59 Troponin Reviewed. cc10 16:02 Chest, 2 View (pa\E\lat) Ordered. EDMS 16:02 CT ABD & PELVIS: IV Contrast Only Ordered. EDMS 16:03 BED REQUEST+ADM ordered. EDMS 18:13 Piperacillin-Tazobactam 3.375 grams IVPB once over 30 mins; dilute in 50mL of NS or D5W mo1 ordered. 18:13 NS 0.9% 1000 ml IV at 250 mL/hr continuous ordered. mo1 21:28 Admission / Observation Status ordered. EDMS 21:28 NPO DIET ordered. EDMS 21:28 BASIC METABOLIC PROFILE Ordered. EDMS 21:32 VITAMIN B12 LEVEL Ordered. EDMS 21:32 FOLATE Ordered. EDMS 21:32 IRON (FE) Ordered. EDMS 21:32 FERRITIN Ordered. EDMS 21:32 TOTAL IRON BINDING CAPACIT Ordered. EDMS 04/24 05:18 T-Sheet-- Draft Copy was scanned into [employer] and attached to record. hs2 11:35 ECG/EKG was scanned into [employer] and attached to record. gb Administered Medications: 04/23 15:14 Drug: Ondansetron 4 mg [ondansetron HCl 2 mg/mL intravenous solution (2 mL)] Route: jmb IVP; Site: right antecubital; 15:15 Drug: NS 0.9% 1000 ml [sodium chloride 0.9 % intravenous solution] Route: IV; Rate: jmb bolus; Site: right antecubital; 18:24 Drug: Piperacillin-Tazobactam 3.375 grams [piperacillin-tazobactam 3.375 gram jmb intravenous solution] Route: IVPB; Infused Over: 30 mins; Site: right antecubital; 18:24 Drug: NS 0.9% 1000 ml [sodium chloride 0.9 % intravenous solution] Route: IV; Rate: 250 jmb mL/hr; Site: right antecubital; Signatures: Dispatcher MedHo EDUT Heidi Walker, RN RN daSherine Rivera, Reg Reg gb Margarita MarreroRN EIM stevens Rob Moore PA PA mo1 Augustus Caldera, PA-C PA-C cc10 Allyson Ordonez RN RN [id number] Melanie Vu, Reg Reg ks16 Ignacia Daley, Reg Reg hs2 Alireza Cruz RN The chart was reviewed and I authenticate all verbal orders and agree with the evaluation and treatment provided.Corrections: (The following items were deleted from the chart) 18:16 16:03 LACTIC ACID LEVEL, LACTATE+LAB ordered. EDUT EDMS Attachments: 15:50 [facility] Payment Agreement [email or web address] 04/24 05:18 T-Sheet-- Draft Copy hs2 11:35 ECG/EKG Chart Complete MTDD
--- NOTE | 2016-04-25 23:16 | EDDOCDS ---
Nurse's Notes [facility] Name: Patricia Sargent Age: 70 yrs Sex: Female : 1945 Arrival Date: 04/23/2016 Time: 13:13 Bed 15 Private MD: Orlando Waggoner Diagnosis: Upper abdominal pain, unspecified;Vomiting;Other intestinal obstruction Presentation: 04/23 13:31 Presenting complaint: Patient states: that she is unable to eat, weight loss, vomiting. ms18 Pt reports 20 lost since February. PT states that she was seen at urgent care yesterday and told that she might have pneumonia. She also states that her cancer doctor took her off of her "cancer pill" 6 days ago. Adult Sepsis Screening: The patient does not have new or worsening altered mentation. Patient's respiratory rate is less than 22. Systolic blood pressure is greater than 100. Patient has a qSOFA score of 0- Negative Sepsis Screen. Suicide/Homicide risk assessment- the patient denies having any suicidal and/or homicidal ideations and does not present with any other emotional, behavioral or mental health complaints. Status: Patient is not a service officer or dependent. Transition of care: patient was not received from another setting of care. 13:31 Acuity: GEE Level 3 ms18 13:31 Method Of Arrival: Walkin/Carried/Asstd ms18 Triage Assessment: 13:40 General: Appears in no apparent distress, Behavior is appropriate for age, cooperative. ms18 Pain: Denies pain. Neurological: Level of Consciousness is awake, alert, obeys commands, Oriented to person, place, time. Respiratory: Airway is patent Respiratory effort is even, unlabored. GI: Reports nausea, vomiting, intolerance of food, intolerance of fluids. Derm: Skin is pink, warm & dry. Historical: - Allergies: no known allergies; - Home Meds: 1. Zocor 20 mg Oral tab 1 tab once daily (Last dose: 04/18/2016) 2. anastrozole 1 mg oral tab 1 tab once daily (Last dose: 04/18/2016) 3. simvastatin 20 mg Oral tab 1 tab once daily hasn't taken due to vomiting 4. albuterol sulfate 90 mcg/actuation Inhl aepb 2 puffs every 4-6 hours 5. prednisone 20 mg Oral tab once daily for 5 days 6. azithromycin 1 gram Oral pack 1 packet daily for 5 days 7. Fish Oil 720-1,200 mg Oral cap daily 8. Calcium Citrate Oral daily 9. biotin 10,000 mcg oral cap daily - PMHx: Cancer, Breast - Right; Cancer, Breast - Left; High Cholesterol; - PSHx: Mastectomy- Bilateral; breast reconstruction surgery; - Social history: Smoking status: Patient states was never smoker of tobacco. No barriers to communication noted, The patient speaks fluent Frisian. - Family history: Not pertinent. - : The pt / caregiver states he / she is not on anticoagulants. Home medication list is obtained from the patient. - Exposure Risk Screening:: None identified. Screenin:15 Screening information is obtained from the patient. Fall risk: At risk due to age, jmb weakness. Assistance ADL's: requires no assistance with activities of daily living. Abuse/DV Screen: The patient / caregiver reports he/she is: not in a situation that causes fear, pain or injury. Nutritional screening: No deficits noted. home support is adequate. 22:05 Advance Directives: Currently, there is a health care proxy, Minoo Cale, Friend. There cjh is no active DNR order. There is no living will. There is no Power of Mission Support Specialist. Assessment: 15:15 General: Appears in no apparent distress, Behavior is appropriate for age, cooperative. jmb Pain: Denies pain. Neurological: Level of Consciousness is awake, alert, obeys commands, Oriented to person, place, time, Pediatric Oncologist are equal bilaterally Speech is normal, Facial symmetry appears normal, Facial symmetry: tongue is midline. Cardiovascular: Capillary refill < 3 seconds Heart tones present Pulses are all present. Rhythm is regular. Respiratory: Airway is patent Respiratory effort is even, unlabored, Respiratory pattern is regular, symmetrical. Respiratory: Breath sounds are clear bilaterally. GI: Abdomen is non- distended Bowel sounds present X 4 quads. Abd is soft X 4 quads. Derm: Skin is pink, warm & dry. Musculoskeletal: Range of motion intact in all extremities. 16:12 General: Appears in no apparent distress, Behavior is appropriate for age, cooperative, jmb Patient returned from X-ray, going to CT at this time. No voiced complaints at this time.. Neurological: Level of Consciousness is awake, alert, obeys commands, Oriented to person, place, time. Respiratory: Airway is patent Respiratory effort is even, unlabored, Respiratory pattern is regular, symmetrical. 16:45 General: Appears in no apparent distress, comfortable, Behavior is appropriate for age, jmb cooperative, Patient laying on stretcher, appears comfortable. Voices no complaints at this time. . Neurological: Level of Consciousness is awake, alert, obeys commands, Oriented to person, place, time. Respiratory: Airway is patent Respiratory effort is even, unlabored, Respiratory pattern is regular, symmetrical. 17:37 General: Appears in no apparent distress, comfortable, Behavior is appropriate for age, hs1 cooperative, Pt resting in stretcher awaiting further plan of care. Pt aware of waiting for surgeon to call back for consult with provider. No other needs noted at this time. Pt is resting and has not vomited since her arrival to [facility]. . 18:12 General: XIN Becerra in to see her at the present time regarding further plan of care. No hs1 needs noted at present and patient remains comfortable. . 19:30 General: family at bedside, warm blankets provided, Provider at bedside to discuss [facility] treatment plan with patient, no complaints voiced. 20:27 General: Appears in no apparent distress, comfortable, Behavior is appropriate for age, cjh cooperative. Pain: Denies pain. Neurological: Level of Consciousness is awake, alert, Oriented to person, place, time. Respiratory: Airway is patent Respiratory effort is even, unlabored, Respiratory pattern is regular, symmetrical, Breath sounds are clear bilaterally. GI: Abdomen is non- distended Bowel sounds hypoactive in right upper quadrant, left upper quadrant, right lower quadrant and left lower quadrant Abd is soft and non tender X 4 quads. 21:53 General: Appears in no apparent distress, comfortable, Behavior is appropriate for age, cjh cooperative, talking with friends and family on phone, voicing anxiety and nervousness regarding possible diagnosis, declines offer to request pain or anxiety medications, awaiting admission. Vital Signs: 13:16 BP 149 / 85; Pulse 119; Resp 18; Temp 96.4(O); Pulse Ox 99% on R/A; Weight 45.36 kg; sar1 Height 4 ft. 11 in. (149.86 cm); Pain 0/10; 18:25 BP 134 / 68; Pulse 103; Resp 20; Temp 98.0(O); Pulse Ox 96% on R/A; Pain 0/10; jml1 20:31 BP 152 / 69; Pulse 95; Resp 20; Temp 98.3(O); Pulse Ox 97% on R/A; Pain 0/10; jmv 21:53 BP 130 / 68; Pulse 91; Resp 16; Temp 98; Pulse Ox 95% ; Pain 0/10; cjh 13:16 Body Mass Index 20.20 (45.36 kg, 149.86 cm) [facility] [place] Vitals: 13:16 Log In Time: April 23, 2016 at 13:16. [facility] ED Course: 13:15 Patient visited by Nadja Toledo, Floor Service Worker [place]. sar1 13:15 Patient moved to Waiting sar1 13:16 Orlando Waggoner MD is Private Physician. sar1 13:17 Patient moved to Pre RCE sar1 13:33 Triage Initiated ms18 14:35 Patient moved to Triage 3 rn1 14:46 Patient visited by Tejal Khan, EMI. ttb 14:52 Augustus Caldera PA-C is PHCP. cc10 14:52 Imani Malone MD is Attending Physician. cc10 14:52 Patient visited by Augustus Caldera PA-C. cc10 14:52 Patient visited by Augustus Caldera PA-C. cc10 15:02 Ami Berad, RN is Primary Nurse. ms18 15:02 Patient moved to I2 / M2 ms18 15:14 Basic Metabolic Profile Sent. jmb 15:14 CBC with Diff Sent. jmb 15:14 Cardiac Injury Profile Sent. jmb 15:14 Lipase Sent. jmb 15:14 Liver Profile Sent. jmb 15:14 Partial Thromboplastin Time Sent. jmb 15:14 Prothrombin Time Profile\\E\\INR Sent. jmb 15:14 Troponin Sent. jmb 15:15 The patient / caregiver is instructed regarding the plan of care and ED course. jmb 15:15 Inserted saline lock: 20 gauge in right antecubital area and blood collected. [facility] patient tolerated the procedure well. Labs drawn. (by ED staff). Sent per order to lab. 15:18 Patient visited by Lazaro Roque. jml1 15:18 EKG done. (by ED staff). Reviewed by Augustus Caldera PA-C. jml1 15:19 Patient visited by Alireza Cruz RN. jmb 15:50 [facility] Payment Agreement was scanned into [employer] and attached to record. ks16 16:13 Patient visited by Alireza Cruz RN. jmb 16:31 Chest, 2 View (pa\\E\\lat) Returned. EDMS 16:45 Patient visited by Alireza Cruz RN. jmb 17:01 CT ABD & PELVIS: IV Contrast Only Returned. EDMS 17:37 Patient visited by Suri Wing RN. hs1 18:12 Patient visited by Suri Wing RN. hs1 18:13 PHCP role handed off by Augustus Caldera PA-C mo1 18:13 Rob Moore PA is PHCP. mo1 18:16 Nael Amaya is Hospitalizing Provider. mo1 18:26 Patient visited by Lazaro Roque. jml1 18:49 Primary Nurse role handed off by Ami Beard RN jc4 19:13 Patient moved to 15 hs1 20:32 Patient visited by Curly Hancock PCA. jmv 21:53 No procedures done that require assistance. [facility] 04/24 05:18 T-Sheet-- Draft Copy was scanned into [employer] and attached to record. hs2 11:35 ECG/EKG was scanned into [employer] and attached to record. gb Administered Medications: 04/23 15:14 Drug: Ondansetron 4 mg [ondansetron HCl 2 mg/mL intravenous solution (2 mL)] Route: jmb IVP; Site: right antecubital; 15:15 Drug: NS 0.9% 1000 ml [sodium chloride 0.9 % intravenous solution] Route: IV; Rate: jmb bolus; Site: right antecubital; 18:24 Drug: Piperacillin-Tazobactam 3.375 grams [piperacillin-tazobactam 3.375 gram jmb intravenous solution] Route: IVPB; Infused Over: 30 mins; Site: right antecubital; 18:24 Drug: NS 0.9% 1000 ml [sodium chloride 0.9 % intravenous solution] Route: IV; Rate: 250 jmb mL/hr; Site: right antecubital; Order Results: Lab Order: Basic Metabolic Profile; SPEC'M 04/23/16 15:12 Test: GLUCOSE, FASTING; Value: 117; Range: 80-110; Abnormal: Above high normal; Units: MG/DL; Status: F Test: BLOOD UREA NITROGEN; Value: 26; Range: 7-18; Abnormal: Above high normal; Units: MG/DL; Status: F Test: CREATININE FOR GFR; Value: 1.12; Range: 0.55-1.02; Abnormal: Above high normal; Units: MG/DL; Status: F Test: GLOMERULAR FILTRATION RATE; Value: 51.3; Range: >45; Status: F Test: SODIUM LEVEL; Value: 134; Range: 136-145; Abnormal: Below low normal; Units: MEQ/L; Status: F Test: POTASSIUM SERUM; Value: 3.9; Range: 3.5-5.1; Units: MEQ/L; Status: F Test: CHLORIDE LEVEL; Value: 90; Range: 98-107; Abnormal: Below low normal; Units: MEQ/L; Status: F Test: CARBON DIOXIDE LEVEL; Value: 31; Range: 21-32; Units: MEQ/L; Status: F Test: ANION GAP; Value: 13; Range: 8-16; Units: MEQ/L; Status: F Test: CALCIUM LEVEL; Value: 10.1; Range: 8.8-10.2; Units: MG/DL; Status: F Test Note: ; Units are mL/min/1.73 m2 Chronic Kidney Disease Staging per NKF: Stage I & II GFR >=60 Normal to Mildly Decreased Stage III GFR 30-59 Moderately Decreased Stage IV GFR 15-29 Severely Decreased Stage V GFR <15 Very Little GFR Left ESRD GFR <15 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 Lab Order: CBC with Diff; SPEC'M 04/23/16 15:12 Test: WHITE BLOOD COUNT; Value: 28.8; Range: 4.0-10.0; Abnormal: Above high normal; Units: K/mm3; Status: F Test: RED BLOOD COUNT; Value: 6.13; Range: 4.00-5.40; Abnormal: Above high normal; Units: M/mm3; Status: F Test: HEMOGLOBIN; Value: 14.7; Range: 12.0-16.0; Units: g/dl; Status: F Test: HEMATOCRIT; Value: 45.8; Range: 36.0-47.0; Units: %; Status: F Test: MEAN CORPUSCULAR VOLUME; Value: 74.7; Range: 80.0-96.0; Abnormal: Below low normal; Units: fl; Status: F Test: MEAN CORPUSCULAR HEMOGLOBIN; Value: 23.9; Range: 27.0-33.0; Abnormal: Below low normal; Units: pg; Status: F Test: MEAN CORPUSCULAR HGB CONC; Value: 32.0; Range: 32.0-36.5; Units: g/dl; Status: F Test: RED CELL DISTRIBUTION WIDTH; Value: 13.9; Range: 11.5-14.5; Units: %; Status: F Test: PLATELET COUNT, AUTOMATED; Value: 509; Range: 150-450; Abnormal: Above high normal; Units: k/mm3; Status: F Test: NEUTROPHILS %; Value: 88.9; Range: 36.0-66.0; Abnormal: Above high normal; Units: %; Status: F Test: LYMPH %; Value: 2.8; Range: 24.0-44.0; Abnormal: Below low normal; Units: %; Status: F Test: MONO %; Value: 5.9; Range: 0.0-5.0; Abnormal: Above high normal; Units: %; Status: F Test: EOS %; Value: 0.2; Range: 0.0-3.0; Units: %; Status: F Test: BASO %; Value: 1.5; Range: 0.0-1.0; Abnormal: Above high normal; Units: %; Status: F Test: LARGE UNSTAINED CELL %; Value: 0.6; Range: 0.0-4.0; Units: %; Status: F Test: NEUTROPHILS #; Value: 25.6; Range: 1.8-7.7; Abnormal: Above high normal; Units: K/mm3; Status: F Test: LYMPH #; Value: 1.0; Range: 1.5-4.5; Abnormal: Below low normal; Units: K/mm3; Status: F Test: MONO #; Value: 1.7; Range: 0.0-0.8; Abnormal: Above high normal; Units: K/mm3; Status: F Test: EOS #; Value: 0.1; Range: 0.0-0.50; Units: K/mm3; Status: F Test: BASO #; Value: 0.4; Range: 0.0-0.2; Abnormal: Above high normal; Units: K/mm3; Status: F Test: LARGE UNSTAINED CELL #; Value: 0.2; Range: 0.0-0.4; Units: K/mm3; Status: F Lab Order: Cardiac Injury Profile; [facility] 04/23/16 15:12 Test: CPK CREATINE PHOSPHOKINASE; Value: 27; Range: 26-192; Units: U/L; Status: F Test: CK-MB VALUE MASS; Value: 1.0; Range: 0.0-3.6; Units: NG/ML; Status: F Test: MB/CK RELATIVE INDEX; Value: 3.70; Range: < OR =4; Status: F Test Note: ; DIAGNOSIS CRITERIA MMB ng/ml Relative Index (RI) NON-AMI < or = 5 N/A AGUILLON ZONE > 5 < or = 4 AMI > 5 > 4 Lab Order: Lipase; [facility] 04/23/16 15:12 Test: LIPASE; Value: 181; Range: 73-393; Units: U/L; Status: F Lab Order: Liver Profile; [facility] 04/23/16 15:12 Test: AST/SGOT; Value: 8; Range: 15-37; Abnormal: Below low normal; Units: U/L; Status: F Test: ALT/SGPT; Value: 16; Range: 12-78; Units: U/L; Status: F Test: ALKALINE PHOSPHATASE; Value: 62; Range: 45-117; Units: U/L; Status: F Test: BILIRUBIN,TOTAL; Value: 0.6; Range: 0.2-1.0; Units: MG/DL; Status: F Test: BILIRUBIN,DIRECT; Value: 0.1; Range: 0.0-0.2; Units: MG/DL; Status: F Test: TOTAL PROTEIN; Value: 8.8; Range: 6.4-8.2; Abnormal: Above high normal; Units: GM/DL; Status: F Test: ALBUMIN; Value: 4.0; Range: 3.2-5.2; Units: GM/DL; Status: F Test: ALBUMIN/GLOBULIN RATIO; Value: 0.83; Range: 1.00-1.93; Abnormal: Below low normal; Status: F Lab Order: Partial Thromboplastin Time; SPEC'M 04/23/16 15:12 Test: PARTIAL THROMBOPLASTIN TIME; Value: 26.8; Range: 26.6-37.1; Units: SECONDS; Status: F Lab Order: Prothrombin Time Profile\\E\\INR; SPEC'M 04/23/16 15:12 Test: PROTHROMBIN TIME; Value: 13.4; Range: 12.3-14.5; Units: SECONDS; Status: F Test: INR; Value: 1.01; Status: F Test Note: ; THERAPUTIC HUMAN INR VALUES INDICATIONS NORMAL RANGES PROPHYLAXIS/TREATMENT OF: VENOUS THROMBOSIS 2.0-3.0 PULMONARY EMBOLISM 2.0-3.0 PREVENTION OF SYSTEMIC EMBOLISM FROM: TISSUE HEART VALVES 2.0-3.0 ACUTE MYOCARDIAL INFARCTION 2.0-3.0 VALVULAR HEART DISEASE 2.0-3.0 ATRIAL FIBRILLATION 2.0-3.0 MECHANICAL VALVES(HIGH RISK) 2.5-3.5 RECURRENT MYOCARDIAL INFARCTION 2.5-3.5 Lab Order: Troponin; SPECM 04/23/16 15:12 Test: TROPONIN I; Value: < 0.02; Range: < 0.10; Units: NG/ML; Status: F Test Note: ; Troponin I Reference Interval for [employer] LOCI: 99th Percentile= 0.00-0.045 ng/ml Risk Stratification: <= 0.10 ng/ml Decreased Risk for Adverse Clinical Events. 0.10-1.50 ng/ml Increased Risk for Adverse Clinical Events. Evaluation of additional criterion and/or repeat testing in 2-6 hours is suggested to rule out myocardial damage. >= 1.50 ng/ml Indicative of Myocardial Injury. Radiology Order: CT ABD & PELVIS: IV Contrast Only Test: CT ABD & PELVIS: IV Contrast Only REASON FOR EXAMINATION: Abdomen Pain; Clinical: Abdominal pain.; ; Technique: Axial contrast enhanced images from the lung bases to the pubic; symphysis using 100 ml Isovue 370 intravenous contrast material with coronal and; sagittal re-formations.; ; Comparison: 11/12/2015.; ; Findings:; There is dilatation to the proximal jejunum secondary to obstruction by a; moderate segment of mid jejunum demonstrating mural thickening and perienteric; stranding along with diffuse adjacent mesenteric adenopathy (images 36 - 85); there is associated small amount of ascites within the pelvis. The remainder of; the small large bowel is relatively normal in appearance.; ; Liver, spleen, pancreas, gallbladder, bilateral adrenal glands and kidneys are; normal. Pelvis demonstrates normal bladder and evidence for prior hysterectomy.; No free air. Vascular structures demonstrate mild atherosclerotic changes; without aneurysm. Skeletal structures demonstrate degenerative changes without; focal osseous abnormality.; ; Lung bases demonstrate right middle lobe and right lower lobe subtle infiltrates; which may reflect acute versus resolving pneumonia.; ; Impression:; 1. Focal area of jejunal thickening with inflammatory stranding and adenopathy; causing proximal obstruction and dilatation to the proximal jejunum.; Differential diagnosis includes malignancy including lymphoma as well as; infectious/inflammatory enteritis. Small amount of free fluid without drainable; collection/abscess noted in the pelvis.; 2. Subtle right basilar and right middle lobe alveolar infiltrates suggesting; early acute versus resolving pneumonia.; ; ; Signed by; Shay Block MD 04/23/2016 04:37 P; Radiology Order: Chest, 2 View (pa\\E\\lat) Test: Chest, 2 View (pa\\E\\lat) REASON FOR EXAMINATION: Cough; Clinical: Cough.; ; Technique: PA and lateral.; ; Comparison: 05/08.; ; Findings:; Subtle medial right basilar atelectasis cannot be excluded and should be; correlated with auscultation. No further consolidation, effusion, or; pneumothorax. Mediastinum and cardiac silhouette normal. Skeletal structures; intact.; ; Impression:; Subtle medial right basilar atelectasis cannot be excluded.; ; ; Signed by; Shay Block MD 04/23/2016 04:17 P; Outcome: 18:16 Decision to Hospitalize by Provider. mo1 21:53 CT Study completed. [facility] 22:05 Discharge Assessment: Patient awake, alert and oriented x 3. No cognitive and/or [facility] functional deficits noted. Patient verbalized understanding of disposition instructions. patient administered narcotics - no. The following High Risk Discharge criteria are identified: None. Admitted to Med/Surg accompanied by tech, via stretcher. Condition: good Condition: stable Condition: improved. Property :Personal belongings accompany Pt. 22:14 Patient left the ED. [facility] Signatures: Dispatcher [employer] EDMS Sherine Alvarez, Reg Reg gb Suri Wing, RN RN hs1 Ami Beard, RN RN jc4 Lazaro Roque jml1 Margarita Marrero,RN RN [facility] Tejal Khan, RN RN ttb Rob Moore PA PA mo1 Alireza Cruz,RN RN jmb Augustus Caldera, PA-C PA-C cc10 Allyson Ordonez,RN RN ms18 Nadja Toledo, Floor Service Worker [place] Unit sar1 Francisco, Nael rn1 Melanie Vu, Reg Reg ks16 Ignacia Daley, Reg Reg hs2 Curly Hancock, [employer] INDUSTRIAL SEWER jmv Chart Complete MTDD
[2016-04-26] VITALS (9 sets, daily range): BP systolic 120–152; BP diastolic 60–79
[2016-04-26] MEDS: LR 1,000 ML IV SCH ×2 (02:51→17:19)
[2016-04-26] MEDS: PANTOPRAZOLE 40MG TAB (PROTONIX) PO SCH (10:18)
[2016-04-26] MEDS: PANTOPRAZOLE 40MG INJ (PROTONIX) (C9113) IV SCH (10:32)
[2016-04-26] MEDS ORDERED: IRON SUCROSE 25 MG in NS 50 ML IV ONE (11:00)
[2016-04-26] MEDS ORDERED: IRON SUCROSE 75 MG in NS 100 ML IV ONE (12:00)
[2016-04-26] MEDS: FENTANYL/BUPIVACAINE/NACL CADD 250 ML EPIDURAL SCH (15:29)
[2016-04-27 02:00] VITALS: BP 115/70
[2016-04-27] MEDS: ONDANSETRON 4MG/2ML VIAL (J2405) IV PRN (05:29)
[2016-04-27 06:00] VITALS: BP 117/82
[2016-04-27 06:39] LABS: BASO % 0.3 % (0.0-1.0); EOS # 0.1 K/mm3 (0.0-0.50); EOS % 0.9 % (0.0-3.0); LARGE UNSTAINED CELL # 0.1 K/mm3 (0.0-0.4); LARGE UNSTAINED CELL % 1.1 % (0.0-4.0); LYMPH # 0.9 K/mm3 (1.5-4.5); LYMPH % 7.1 % (24.0-44.0); MEAN CORPUSCULAR HEMOGLOBIN 23.6 pg (27.0-33.0); MEAN CORPUSCULAR HGB CONC 30.7 g/dl (32.0-36.5); MONO # 0.7 K/mm3 (0.0-0.8); MONO % 5.8 % (0.0-5.0); NEUTROPHILS # 10.7 K/mm3 (1.8-7.7); NEUTROPHILS % 84.8 % (36.0-66.0); PLATELET COUNT, AUTOMATED 520 k/mm3 (150-450); RED CELL DISTRIBUTION WIDTH 12.8 % (11.5-14.5); WHITE BLOOD COUNT 12.6 K/mm3 (4.0-10.0)
[2016-04-27] MEDS: LR 1,000 ML IV SCH (06:40)
[2016-04-27 06:57] LABS: ALBUMIN 1.9 GM/DL (3.2-5.2); ALBUMIN/GLOBULIN RATIO 0.53 (1.00-1.93); ALKALINE PHOSPHATASE 40 U/L (45-117); ALT/SGPT 8 U/L (12-78); ANION GAP 11 MEQ/L (8-16); AST/SGOT 7 U/L (15-37); BILIRUBIN,TOTAL 0.3 MG/DL (0.2-1.0); BLOOD UREA NITROGEN 6 MG/DL (7-18); CALCIUM LEVEL 8.1 MG/DL (8.8-10.2); CARBON DIOXIDE LEVEL 24 MEQ/L (21-32); CHLORIDE LEVEL 103 MEQ/L (98-107); CREATININE FOR GFR 0.55 MG/DL (0.55-1.02); GLOMERULAR FILTRATION RATE > 60.0 (>45); GLUCOSE, FASTING 131 MG/DL (80-110); POTASSIUM SERUM 3.3 MEQ/L (3.5-5.1); SODIUM LEVEL 138 MEQ/L (136-145); TOTAL PROTEIN 5.5 GM/DL (6.4-8.2)
[2016-04-27] MEDS: PANTOPRAZOLE 40MG TAB (PROTONIX) PO SCH (09:04)
[2016-04-27 10:00] VITALS: BP 113/70
[2016-04-27 14:00] VITALS: BP 121/69
[2016-04-27] MEDS: FENTANYL/BUPIVACAINE/NACL CADD 250 ML EPIDURAL SCH (16:34)
[2016-04-27 18:00] VITALS: BP 149/84
[2016-04-27 20:10] VITALS: BP 173/83
[2016-04-28 02:00] VITALS: BP 160/92
[2016-04-28 06:00] VITALS: BP 159/90
[2016-04-28] MEDS ORDERED: MORPHINE 2 MG/ML 1ML SYRINGE IV PRN (08:00)
[2016-04-28] MEDS ORDERED: NORCO, ANEXSIA 5/325MG TABLET (HYDROcodone/ACETAMINOPHEN) PO PRN (08:00)
[2016-04-28] MEDS: NORCO, ANEXSIA 5/325MG TABLET (HYDROcodone/ACETAMINOPHEN) PO PRN (09:11)
[2016-04-28] MEDS: PANTOPRAZOLE 40MG TAB (PROTONIX) PO SCH (09:11)
[2016-04-28 10:00] VITALS: BP 140/81
[2016-04-28 14:00] VITALS: BP 162/74
[2016-04-28 18:00] VITALS: BP 172/89
[2016-04-28 20:25] VITALS: BP 168/82
[2016-04-29 02:00] VITALS: BP 170/85
[2016-04-29 05:35] VITALS: BP 181/76
[2016-04-29 06:33] LABS: BASO % 0.2 % (0.0-1.0); EOS # 0.1 K/mm3 (0.0-0.50); EOS % 1.5 % (0.0-3.0); LARGE UNSTAINED CELL # 0.1 K/mm3 (0.0-0.4); LARGE UNSTAINED CELL % 1.5 % (0.0-4.0); LYMPH # 0.7 K/mm3 (1.5-4.5); LYMPH % 7.6 % (24.0-44.0); MEAN CORPUSCULAR HEMOGLOBIN 23.9 pg (27.0-33.0); MEAN CORPUSCULAR HGB CONC 31.6 g/dl (32.0-36.5); MEAN CORPUSCULAR VOLUME 75.6 fl (80.0-96.0); MONO # 0.7 K/mm3 (0.0-0.8); MONO % 7.7 % (0.0-5.0); NEUTROPHILS # 7.3 K/mm3 (1.8-7.7); NEUTROPHILS % 81.4 % (36.0-66.0); PLATELET COUNT, AUTOMATED 342 k/mm3 (150-450); WHITE BLOOD COUNT 8.9 K/mm3 (4.0-10.0)
[2016-04-29 07:04] LABS: ANION GAP 11 MEQ/L (8-16); BLOOD UREA NITROGEN 6 MG/DL (7-18); CALCIUM LEVEL 8.2 MG/DL (8.8-10.2); CARBON DIOXIDE LEVEL 27 MEQ/L (21-32); CHLORIDE LEVEL 101 MEQ/L (98-107); CREATININE FOR GFR 0.44 MG/DL (0.55-1.02); GLOMERULAR FILTRATION RATE > 60.0 (>45); GLUCOSE, FASTING 107 MG/DL (80-110); POTASSIUM SERUM 3.5 MEQ/L (3.5-5.1); SODIUM LEVEL 139 MEQ/L (136-145)
[2016-04-29] MEDS: NORCO, ANEXSIA 5/325MG TABLET (HYDROcodone/ACETAMINOPHEN) PO PRN ×2 (08:32→19:44)
[2016-04-29] MEDS: PANTOPRAZOLE 40MG TAB (PROTONIX) PO SCH (08:32)
[2016-04-29 10:00] VITALS: BP 130/80
[2016-04-29 14:00] VITALS: BP 160/90
--- NOTE | 2016-04-29 15:16 | CR ---
DATE OF CONSULTATION: 04/28/2016 REASON FOR CONSULTATION: Metastatic small bowel adenocarcinoma. HISTORY OF PRESENT ILLNESS: Mrs. Sargent is a 70-year-old woman who was diagnosed with breast cancer early in 2015 and underwent bilateral mastectomy in May 2015. She was put on anastrozole and has since been on this. She is currently admitted for small bowel obstruction and underwent a laparotomy for this on 04/24/2016. Intraoperatively, Dr. Amaya noted peritoneal carcinomatosis and a malignant obstruction in the proximal jejunum. The pathology report stated a poorly differentiated adenocarcinoma in the small bowel with a small bowel primary cancer favored. Medical oncology was consulted for a discussion on prognosis and systemic treatment options. Mrs. Sargent has been feeling better since she had surgery. She has had no nausea and vomiting postoperatively. She did lose weight over the past 3 months from poor appetite and intermittent nausea and vomiting prior to surgery. She has not noted any active rectal bleeding, although she does have dark stools as she was on iron supplements from September onwards. ALLERGIES: No known drug allergies. CURRENT MEDICATIONS: - acetaminophen/hydrocodone as needed - morphine sulfate as needed - pantoprazole - epidural fentanyl and bupivacaine - acetaminophen - ondansetron as needed PAST MEDICAL HISTORY: Bilateral mastectomy for bilateral breast cancer. According to the patient, she had genetic testing which came back negative. FAMILY HISTORY: Her mother had bowel cancer. SOCIAL HISTORY: She is . She does not smoke. 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 PHYSICAL EXAMINATION: She was lying comfortably on the hospital bed, not in distress. She had pinkish conjunctivae and anicteric sclerae. She had a birthmark on her forehead on her right eyebrow area and she also had a birthmark on her anterior abdominal wall. No oral mucosa lesions. No palpable cervical nodes. LUNGS: Fair air entry. No rales, no rhonchi, no wheeze. S1, S2, regular, slightly tachycardic. ABDOMEN: Soft, nontender, no guarding. She had onel on her surgical wound. The surgical wound was clean with no erythema. Positive bowel sounds. EXTREMITIES: No calf swelling, no calf tenderness, and no pedal edema. IMPRESSION AND PLAN: Mrs. Sargent is a 70-year-old with a poorly differentiated adenocarcinoma from a small bowel segmental resection. Small bowel primary adenocarcinoma was favored by the pathologist. Intraoperatively she was found to have peritoneal carcinomatosis. I discussed with Mrs. Sargent and her family that this is likely an incurable condition. Chemotherapy has been shown to be beneficial in patients with advanced small bowel cancer. I discussed FOLFOX chemotherapy (fluorouracil, leucovorin, and oxaliplatin chemotherapy). Risks include nausea, vomiting, bone marrow suppression with risk of infection, cold sensitivities, peripheral neuropathy, diarrhea, mucositis, among others. This would be given every 2 weeks. I also discussed that she could obtain a second opinion on surgery and chemotherapy from an academic center. In the end, it was agreed that she would be referred to [facility] for this. Mrs. Sargent has consented to start chemotherapy. We would aim to start this 3-4 weeks postsurgery. It would be to her advantage to have a port arranged shortly , either before she gets discharged from the hospital or just after she gets discharged from the hospital. I have conferred with Dr. Chaney, who is covering Dr. Amaya today, about this. [facility]
[2016-04-29 18:00] VITALS: BP 160/90
[2016-04-29 21:15] VITALS: BP 168/84
[2016-04-30 02:00] VITALS: BP 149/82
[2016-04-30 05:25] VITALS: BP 159/85
[2016-04-30] MEDS: PANTOPRAZOLE 40MG TAB (PROTONIX) PO SCH (08:19)
[2016-04-30] MEDS ORDERED: SENNA 8.6 MG TAB (SENOKOT) PO ONE (09:45)
[2016-04-30] MEDS: DOCUSATE SODIUM 100 MG CAP PO SCH ×2 (09:57→20:58)
[2016-04-30 10:00] VITALS: BP 160/80
[2016-04-30] MEDS: NORCO, ANEXSIA 5/325MG TABLET (HYDROcodone/ACETAMINOPHEN) PO PRN (11:22)
[2016-04-30 14:00] VITALS: BP 140/82
[2016-04-30 18:00] VITALS: BP 160/92
[2016-04-30 22:00] VITALS: BP 184/82
[2016-05-01] MEDS: NORCO, ANEXSIA 5/325MG TABLET (HYDROcodone/ACETAMINOPHEN) PO PRN ×2 (00:10→15:11)
[2016-05-01 06:00] VITALS: BP 154/92
[2016-05-01] MEDS: ONDANSETRON 4MG/2ML VIAL (J2405) IV PRN ×2 (07:07→16:30)
[2016-05-01] MEDS: DOCUSATE SODIUM 100 MG CAP PO SCH ×2 (09:14→20:18)
[2016-05-01] MEDS: MIRALAX *UNIT DOSE* 17GM PACKET PO SCH ×2 (09:14→12:17)
[2016-05-01] MEDS: PANTOPRAZOLE 40MG TAB (PROTONIX) PO SCH (09:14)
[2016-05-01 10:00] VITALS: BP 160/65
[2016-05-01 14:00] VITALS: BP 163/80
[2016-05-01 18:00] VITALS: BP 150/70
[2016-05-01] MEDS ORDERED: FLEET ENEMA PR ONE (18:30)
[2016-05-01 22:00] VITALS: BP 154/82
[2016-05-02 02:00] VITALS: BP 124/78
[2016-05-02] MEDS: NORCO, ANEXSIA 5/325MG TABLET (HYDROcodone/ACETAMINOPHEN) PO PRN (05:43)
[2016-05-02 06:00] VITALS: BP 124/70
[2016-05-02 06:57] LABS: BASO % 0.3 % (0.0-1.0); EOS % 0.5 % (0.0-3.0); LARGE UNSTAINED CELL # 0.2 K/mm3 (0.0-0.4); LYMPH # 0.7 K/mm3 (1.5-4.5); LYMPH % 8.4 % (24.0-44.0); MEAN CORPUSCULAR HEMOGLOBIN 24.4 pg (27.0-33.0); MEAN CORPUSCULAR HGB CONC 31.9 g/dl (32.0-36.5); MEAN CORPUSCULAR VOLUME 76.3 fl (80.0-96.0); MONO # 0.7 K/mm3 (0.0-0.8); MONO % 8.3 % (0.0-5.0); NEUTROPHILS # 6.4 K/mm3 (1.8-7.7); NEUTROPHILS % 80.5 % (36.0-66.0); PLATELET COUNT, AUTOMATED 363 k/mm3 (150-450); RED CELL DISTRIBUTION WIDTH 13.8 % (11.5-14.5); WHITE BLOOD COUNT 7.9 K/mm3 (4.0-10.0)
[2016-05-02 07:08] LABS: ALBUMIN 2.4 GM/DL (3.2-5.2); ALBUMIN/GLOBULIN RATIO 0.71 (1.00-1.93); ALKALINE PHOSPHATASE 49 U/L (45-117); ALT/SGPT 8 U/L (12-78); ANION GAP 12 MEQ/L (8-16); AST/SGOT 9 U/L (15-37); BILIRUBIN,TOTAL 0.5 MG/DL (0.2-1.0); BLOOD UREA NITROGEN 8 MG/DL (7-18); CALCIUM LEVEL 8.5 MG/DL (8.8-10.2); CARBON DIOXIDE LEVEL 28 MEQ/L (21-32); CHLORIDE LEVEL 97 MEQ/L (98-107); CREATININE FOR GFR 0.58 MG/DL (0.55-1.02); GLOMERULAR FILTRATION RATE > 60.0 (>45); GLUCOSE, FASTING 86 MG/DL (80-110); SODIUM LEVEL 137 MEQ/L (136-145); TOTAL PROTEIN 5.8 GM/DL (6.4-8.2)
[2016-05-02] MEDS: DOCUSATE SODIUM 100 MG CAP PO SCH (08:20)
[2016-05-02] MEDS: PANTOPRAZOLE 40MG TAB (PROTONIX) PO SCH (08:20)
--- NOTE | 2016-05-02 09:28 | REP ---
Clinical: Abdominal pain and distension. Technique: Single supine view of the abdomen and pelvis. Comparison: 01/13/2016. Findings: Significantly dilated loops of small bowel noted throughout the abdomen and pelvis suggesting high-grade small bowel obstruction. Midline surgical onel are identified and consistent with recent procedure. Suture material is also identified within the left mid abdomen. Residual gas and fecal material noted in the visualized colon and rectosigmoid. Skeletal structures are intact. Impression: Significantly dilated loops of small bowel measuring up to roughly 6 cm suggesting small bowel obstruction. Signed by Shay Block MD 05/02/2016 09:19 A
[2016-05-02] MEDS: ONDANSETRON 4MG/2ML VIAL (J2405) IV PRN ×2 (10:59→17:52)
[2016-05-02 14:00] VITALS: BP 120/79
[2016-05-02] MEDS ORDERED: FLEET ENEMA PR ONE (19:00)
[2016-05-02] MEDS: POTASSIUM CHLORIDE INJ 20 MEQ in D5W/LR 1,000 ML IV SCH (20:16)
[2016-05-02 22:00] VITALS: BP 122/60
[2016-05-03] MEDS: KETOROLAC 30 MG/ML VIAL (J1885) IV PRN ×3 (01:50→15:24)
[2016-05-03 06:00] VITALS: BP 118/64
[2016-05-03] MEDS: POTASSIUM CHLORIDE INJ 20 MEQ in D5W/LR 1,000 ML IV SCH ×2 (06:10→15:23)
[2016-05-03] MEDS: MORPHINE 2 MG/ML 1ML SYRINGE IV PRN (07:05)
[2016-05-03 07:12] LABS: ANION GAP 8 MEQ/L (8-16); BLOOD UREA NITROGEN 8 MG/DL (7-18); CALCIUM LEVEL 8.1 MG/DL (8.8-10.2); CARBON DIOXIDE LEVEL 31 MEQ/L (21-32); CHLORIDE LEVEL 100 MEQ/L (98-107); CREATININE FOR GFR 0.58 MG/DL (0.55-1.02); GLOMERULAR FILTRATION RATE > 60.0 (>45); GLUCOSE, FASTING 122 MG/DL (80-110); POTASSIUM SERUM 3.1 MEQ/L (3.5-5.1); SODIUM LEVEL 139 MEQ/L (136-145)
[2016-05-03] MEDS: PANTOPRAZOLE 40MG INJ (PROTONIX) (C9113) IV SCH (08:41)
--- NOTE | 2016-05-03 09:58 | REP ---
Clinical: Follow up small bowel obstruction. Comparison: 05/02/2016. Findings: Distended small bowel is noted throughout the abdomen and pelvis suggesting continued small bowel obstruction relatively similar compared to prior examination. No organomegaly. Surgical onel noted midline. Impression: Continued evidence for small bowel obstruction similar to prior examination Signed by Shay Block MD 05/03/2016 09:49 A
[2016-05-03 12:00] VITALS: BP 112/65
[2016-05-03 14:00] VITALS: BP 150/78
[2016-05-03] MEDS: NORCO, ANEXSIA 5/325MG TABLET (HYDROcodone/ACETAMINOPHEN) PO PRN (18:56)
[2016-05-03 22:00] VITALS: BP 138/62
[2016-05-04] MEDS: MORPHINE 2 MG/ML 1ML SYRINGE IV PRN ×2 (01:51→11:03)
[2016-05-04 02:00] VITALS: BP 142/70
[2016-05-04] MEDS ORDERED: KCL 20MEQ IN D5/0.9%NACL 1000 ML As Ordered ONE (02:03)
[2016-05-04] MEDS: POTASSIUM CHLORIDE INJ 20 MEQ in D5W/LR 1,000 ML IV SCH ×3 (02:06→22:46)
[2016-05-04 06:00] VITALS: BP 152/82
[2016-05-04] MEDS: KETOROLAC 30 MG/ML VIAL (J1885) IV PRN ×2 (06:00→19:49)
[2016-05-04 06:44] LABS: BASO % 0.3 % (0.0-1.0); EOS % 1.5 % (0.0-3.0); LARGE UNSTAINED CELL # 0.1 K/mm3 (0.0-0.4); LARGE UNSTAINED CELL % 2.4 % (0.0-4.0); LYMPH # 0.5 K/mm3 (1.5-4.5); LYMPH % 14.1 % (24.0-44.0); MEAN CORPUSCULAR HEMOGLOBIN 24.2 pg (27.0-33.0); MEAN CORPUSCULAR HGB CONC 31.8 g/dl (32.0-36.5); MEAN CORPUSCULAR VOLUME 76.1 fl (80.0-96.0); MONO # 0.4 K/mm3 (0.0-0.8); MONO % 11.4 % (0.0-5.0); NEUTROPHILS # 2.2 K/mm3 (1.8-7.7); NEUTROPHILS % 70.3 % (36.0-66.0); PLATELET COUNT, AUTOMATED 292 k/mm3 (150-450); RED CELL DISTRIBUTION WIDTH 14.2 % (11.5-14.5); WHITE BLOOD COUNT 3.2 K/mm3 (4.0-10.0)
[2016-05-04 07:02] LABS: ALBUMIN 2.1 GM/DL (3.2-5.2); ALBUMIN/GLOBULIN RATIO 0.62 (1.00-1.93); ALKALINE PHOSPHATASE 42 U/L (45-117); ALT/SGPT 7 U/L (12-78); ANION GAP 6 MEQ/L (8-16); AST/SGOT 6 U/L (15-37); BILIRUBIN,TOTAL 0.3 MG/DL (0.2-1.0); BLOOD UREA NITROGEN 6 MG/DL (7-18); CALCIUM LEVEL 8.1 MG/DL (8.8-10.2); CARBON DIOXIDE LEVEL 32 MEQ/L (21-32); CHLORIDE LEVEL 103 MEQ/L (98-107); CREATININE FOR GFR 0.54 MG/DL (0.55-1.02); GLOMERULAR FILTRATION RATE > 60.0 (>45); GLUCOSE, FASTING 106 MG/DL (80-110); POTASSIUM SERUM 3.3 MEQ/L (3.5-5.1); SODIUM LEVEL 141 MEQ/L (136-145); TOTAL PROTEIN 5.5 GM/DL (6.4-8.2)
[2016-05-04] MEDS: PANTOPRAZOLE 40MG INJ (PROTONIX) (C9113) IV SCH (08:51)
[2016-05-04 10:00] VITALS: BP 145/90
[2016-05-04 14:00] VITALS: BP 140/90
--- NOTE | 2016-05-04 17:00 | REP ---
Procedure: PICC line insertion with Jaye-Tate The procedure was performed under the direct supervision of Dr. Ross. The risks and benefits of the procedure were explained to the patient and informed consent was obtained. The right basilic vein was localized using ultrasound guidance. The skin was prepped and draped in a sterile fashion. 2% lidocaine was used as a local anesthetic. Using ultrasound guidance the basilic vein was cannulated and a 0.018 guidewire was inserted and advanced to the SVC using fluoroscopic guidance. The needle was removed and a 5.5 Lao dilator and peel-away sheath was inserted over the guide wire. A 5.5 Lao dual lumen catheter was cut to length of 35 cm. The dilator was removed and the catheter was inserted over the guide wire with the tip ending in the SVC. The peel-away sheath was removed and the catheter was flushed with heparinized saline as per Hospital protocol. The catheter was affixed to the skin and a sterile dressing was applied. The the patient tolerated the procedure well and there were no immediate complications. 0.6 minutes of fluoro time was utilized for this procedure. Reviewed by MICHELLE Mcmanus 05/04/2016 04:13 PSigned by Deangelo Ross MD 05/04/2016 04:52 P
[2016-05-04 18:00] VITALS: BP 142/87
[2016-05-04] MEDS ORDERED: AMINO AC/ELECTROLYTE/DEX/CALC 2,000 ML IV SCH (18:00)
[2016-05-04] MEDS ORDERED: FAT EMULSION IV 20% 500 ML IV SCH (18:00)
[2016-05-04] MEDS: HumaLOG INSULIN (NovoLOG) PER UNIT SC SCH (18:00)
--- NOTE | 2016-05-04 19:31 | REP ---
CT abdomen pelvis 05/04/2016 without IV or oral contrast Indication recurrent small bowel obstruction Comparison: CT abdomen pelvis 04/23/2016, 11/12/2015 There are new small bilateral pleural effusions. There is right lower lobe infiltrate/atelectasis and left basilar atelectasis. Patient has bilateral sub glandular breast implants. There is small to moderate abdominal and pelvic ascites, representing interval change since 04/23/2016. Liver, spleen, adrenal glands are unremarkable. Nonobstructing 8 mm calculus is seen in the left renal pelvis and unchanged. There are few stones in the dependent portion of gallbladder. Stomach is contracted. Persistent dilatation of proximal jejunum is again noted measuring up to 7.3 cm transverse dimension, previously 6.6 cm maximal transverse dimension. There are a few intervening areas of narrowing and mural thickening within the jejunum. Surgical sutures are noted within the left upper quadrant representing interval change. There are findings consistent with relative small bowel obstruction and/or ileus with approximate transition zone in the mid to distal small bowel. Scattered mesenteric lymph nodes are again identified with predominance in the left upper abdomen, measuring up to mm diameter and enlarged. Bladder is contracted uterus is surgically absent. There is moderate stool within the cecum and ascending colon. Small to moderate ascites is present within the pelvis there is no free air Impression Dilated small bowel loops with mural thickening and intervening areas of small bowel dilatation with relative small obstruction increased that seen on 04/23/2016. There is also mesenteric adenopathy within the abdomen most pronounced in the left upper quadrant with nodes measuring up to 11 mm diameter. Consider inflammatory bowel disease, enteritis, small bowel lymphoma, and peritoneal implants. New small to moderate abdominal and pelvic ascites New small bilateral pleural effusions. Right lower lobe atelectasis/infiltrate, left basilar atelectasis, new Cholelithiasis Persistent nonobstructing 8 mm calculus in the left renal pelvis Adenopathy and/or carcinomatosis within the mesentery in the left upper quadrant Case discussed with Dr. Amaya of Department of general surgery on 05/04/2016 Signed by Sherie Watson MD 05/04/2016 07:23 P
[2016-05-04 22:00] VITALS: BP 139/90
[2016-05-05] VITALS (7 sets, daily range): BP systolic 114–162; BP diastolic 60–98
[2016-05-05] MEDS: KETOROLAC 30 MG/ML VIAL (J1885) IV PRN ×3 (02:21→21:40)
[2016-05-05] MEDS: HumaLOG INSULIN (NovoLOG) PER UNIT SC SCH ×4 (06:00→18:00)
[2016-05-05] MEDS: MORPHINE 2 MG/ML 1ML SYRINGE IV PRN (06:56)
[2016-05-05] MEDS: PANTOPRAZOLE 40MG INJ (PROTONIX) (C9113) IV SCH (08:21)
[2016-05-05] MEDS: SODIUM CHLORIDE 0.9% INJ 10 ML SYR IV PRN (11:07)
[2016-05-05] MEDS ORDERED: MIDAZOLAM INJ 2 MG/2 ML VIAL (J2250) As Ordered ONE ×2 (17:28→18:16)
[2016-05-05] MEDS ORDERED: fentaNYL 100 MCG/2 ML INJECTION (J3010) As Ordered ONE (17:28)
[2016-05-05] MEDS: SODIUM CHLORIDE 0.9% INJ 10 ML SYR IV SCH (17:40)
[2016-05-05] MEDS ORDERED: FAT EMULSION IV 20% 500 ML IV SCH (18:00)
[2016-05-05] MEDS ORDERED: AMINO AC/ELECTROLYTE/DEX/CALC 2,000 ML IV SCH (18:00)
[2016-05-05] MEDS ORDERED: PROPOFOL 200 MG/20 ML VIAL As Ordered ONE (18:16)
[2016-05-05] MEDS ORDERED: ROCURONIUM BROMIDE 50 MG/5 ML VIAL As Ordered ONE (18:16)
[2016-05-05] MEDS ORDERED: fentaNYL 250 MCG/5 ML INJECTION (J3010) As Ordered ONE (18:16)
[2016-05-05] MEDS ORDERED: dexameTHASONE 4 MG/ML 1ML VIAL (J1100) As Ordered ONE (18:16)
[2016-05-05] MEDS ORDERED: LIDOCAINE 2% INJ 100 MG/5 ML SDV (FOR ANES.) As Ordered ONE (18:16)
[2016-05-05] MEDS ORDERED: ONDANSETRON 4MG/2ML VIAL (J2405) As Ordered ONE (18:16)
[2016-05-05] MEDS ORDERED: fentaNYL 100 MCG/2 ML INJECTION (J3010) IV SCH (18:20)
[2016-05-05] MEDS ORDERED: MIDAZOLAM INJ 2 MG/2 ML VIAL (J2250) IV SCH (18:20)
[2016-05-05] MEDS ORDERED: ERTAPENEM 1 GM INJ (INVanz) (J1335) As Ordered ONE (18:41)
[2016-05-05] MEDS ORDERED: SUCCINYLCHOLINE 100 MG/5 ML SYRINGE (J0330) As Ordered ONE (19:10)
[2016-05-05] MEDS ORDERED: PHENYLephrine HCL 500 MCG/5 ML (100MCG/ML) SYRINGE (J2370) As Ordered ONE ×2 (19:14→20:29)
[2016-05-05] MEDS ORDERED: PHENYLEPHRINE INJ 10MG/ML VIAL (J2370) As Ordered ONE (19:21)
[2016-05-05] MEDS ORDERED: HYDROCORTISONE 100 MG/2 ML VIAL (J1720) As Ordered ONE (19:34)
[2016-05-05] MEDS ORDERED: GLYCOPYRROLATE INJ 0.2 MG/ML 2 ML VIAL As Ordered ONE (20:46)
[2016-05-05] MEDS ORDERED: NEOSTIGMINE 1MG/ML 5 ML SYRINGE (J2710) As Ordered ONE (20:46)
[2016-05-05] MEDS ORDERED: FENTANYL 2MCG/ML BUPIVACAINE 0.0625% NACL 250ML CADD As Ordered ONE (20:54)
[2016-05-05] MEDS ORDERED: ONDANSETRON 4MG/2ML VIAL (J2405) IV PRN ×2 (21:00→21:30)
[2016-05-05] MEDS ORDERED: WALLBOXKEY XX PRN (21:00)
[2016-05-05] MEDS ORDERED: NALOXONE INJ 0.4 MG/1 ML VIAL (J2310) IV PRN (21:00)
[2016-05-05] MEDS ORDERED: diphenhydrAMINE INJ 50MG/ML VIAL (J1200) IV PRN (21:00)
[2016-05-05] MEDS ORDERED: EPIDURAL/PCA KEYS XX PRN (21:00)
[2016-05-05] MEDS: FENTANYL/BUPIVACAINE/NACL CADD 250 ML EPIDURAL SCH (21:00)
[2016-05-05] MEDS ORDERED: METOCLOPRAMIDE INJ 10MG/2ML VIAL (J2765) IV PRN (21:00)
[2016-05-05] MEDS ORDERED: KETOROLAC 30 MG/ML VIAL (J1885) As Ordered ONE (21:29)
[2016-05-05] MEDS ORDERED: LR 1,000 ML IV SCH (21:30)
[2016-05-05] MEDS ORDERED: fentaNYL 100 MCG/2 ML INJECTION (J3010) IV PRN (21:30)
[2016-05-06] VITALS (9 sets, daily range): BP systolic 104–120; BP diastolic 60–72
[2016-05-06] MEDS: SODIUM CHLORIDE 0.9% INJ 10 ML SYR IV SCH ×2 (05:22→18:25)
[2016-05-06] MEDS: HumaLOG INSULIN (NovoLOG) PER UNIT SC SCH ×5 (05:40→23:54)
[2016-05-06 05:56] LABS: MEAN CORPUSCULAR HEMOGLOBIN 23.9 pg (27.0-33.0); MEAN CORPUSCULAR HGB CONC 32.9 g/dl (32.0-36.5); MEAN CORPUSCULAR VOLUME 72.7 fl (80.0-96.0); PLATELET COUNT, AUTOMATED 242 k/mm3 (150-450); RED CELL DISTRIBUTION WIDTH 15.3 % (11.5-14.5); WHITE BLOOD COUNT 9.9 K/mm3 (4.0-10.0)
[2016-05-06 06:17] LABS: ANION GAP 9 MEQ/L (8-16); CALCIUM LEVEL 7.3 MG/DL (8.8-10.2); CARBON DIOXIDE LEVEL 28 MEQ/L (21-32); CHLORIDE LEVEL 97 MEQ/L (98-107); CREATININE FOR GFR 0.54 MG/DL (0.55-1.02); GLOMERULAR FILTRATION RATE > 60.0 (>45); GLUCOSE, FASTING 126 MG/DL (80-110); POTASSIUM SERUM 3.4 MEQ/L (3.5-5.1); SODIUM LEVEL 134 MEQ/L (136-145)
[2016-05-06 06:28] LABS: BLOOD UREA NITROGEN 16 MG/DL (7-18)
[2016-05-06 07:05] LABS: BANDS 6 % (< 11)
[2016-05-06 07:06] LABS: ANISOCYTOSIS 1+; MICROCYTOSIS 2+
[2016-05-06] MEDS: ERTAPENEM SODIUM 1 GM in NS MINI-BAG PLUS 50 ML IV SCH (11:22)
[2016-05-06] MEDS: PANTOPRAZOLE 40MG INJ (PROTONIX) (C9113) IV SCH (11:22)
[2016-05-06] MEDS: ENOXAPARIN 40 MG/0.4 ML SYRINGE (J1650) SC SCH (11:22)
--- NOTE | 2016-05-06 15:30 | RO ---
DATE OF PROCEDURE: 05/05/2016 PREOPERATIVE DIAGNOSIS: Carcinomatosis and small bowel obstruction. POSTOPERATIVE DIAGNOSIS: Extensive carcinomatosis with extensive malignant adhesions between small and large bowel in the pelvis with a small bowel obstruction. PROCEDURE PERFORMED: Exploratory laparotomy with lysis of adhesions, partial omentectomy, and diverting ileocolic anastomosis. SURGEON: Dr. Nael Amaya CERTIFIED NURSE: Dr. Anders Araujo ANESTHESIA: General and epidural. INDICATIONS FOR PROCEDURE: The patient is a 70-year-old woman who had presented back on 04/23/2016 with an intestinal obstruction. CT scan showed marked thickening of a loop of proximal small bowel. She underwent exploratory laparotomy and was found to have an obstructing malignant lesion in her proximal jejunum. She had extensive tumor implants throughout the abdomen. Her pathology indicated adenocarcinoma, and the inspection was consistent with a small bowel primary. She had done well for several days but then showed evidence of a recurring obstruction. Repeat CT scan showed dilated small bowel going down into the pelvis. She is now for exploratory laparotomy. DESCRIPTION OF PROCEDURE: The patient had an epidural catheter placed preoperatively. She was placed supine on the operating table and placed under general endotracheal anesthesia. Surgical onel from her previous surgery were removed. The abdomen was then prepped and draped in a sterile fashion. The patient's abdomen was entered through a low midline incision. This was begun 5- 6 cm below the lower end of her incision and carried up to slightly above the umbilicus, removing the sutures from her previous surgery. On opening the peritoneum, a large amount of clear ascites was identified and suctioned from the abdomen. In total, probably a liter of fluid was drained. Palpation revealed multiple small nodules on the peritoneal surface and on the underlying bowel. The small bowel was found to be dilated all the way from the level of her previous proximal jejunal anastomosis down to the pelvis. There was some omentum which was densely adherent to a loop of small bowel down in the low right lower quadrant. These adhesions had been freed on 04/24/2016 at her previous surgery, suggesting that her tumor had continued to advance in the interim. A portion of the omentum was resected by clamping across the omentum, dividing it and ligating this with #0 Vicryl. This allowed for careful removal of the omentum from the loop of bowel low in the right lower quadrant. There were multiple tumor nodules noted in this region. Distal to this point, the bowel went down into the pelvis , came back up and then down on the left side of the pelvis. There were dense attachments of this looping of small bowel into the pelvis and around the sigmoid. I elected not to attempt any dissection of this bowel loop. The bowel was dilated down certainly to and slightly below this point. The cecum was identified and appeared to contain a small amount of stool, but the colon was not dilated either on the right or left sides. I elected to proceed with an anastomosis between the distal ileum and the cecum to effect a bypass of the obstructed area. The lateral aspect of the cecum was freed somewhat by dividing the lateral attachments. Several sutures were applied to approximate the wall of the ileum to the cecum. An opening was created in the cecum, and a pool sucker was used to decompress the dilated small bowel, which was accomplished nicely. With the small bowel clamped proximally, the anastomosis was then performed to the cecum using a linear cutter 55 stapler with the residual opening closed with a TX60G stapler. A number of reinforcing sutures of #3-0 Vicryl were placed anteriorly. This seemed to give a good anastomosis with no evidence of bleeding or leak. The area was copiously irrigated with warm saline. There had been some minimal spillage of small bowel contents, which was all irrigated until clear. The bowel was then returned to the abdomen. The remaining omentum was pulled down over the small bowel. The abdominal fascia was then closed with interrupted simple sutures of #1 Vicryl. The skin edges were approximated with skin onel. A sterile dressing was applied. The patient tolerated the procedure well without apparent complication. The patient was awakened and extubated and moved to the recovery room in stable condition. BRENDA
[2016-05-06] MEDS ORDERED: FAT EMULSION IV 20% 500 ML IV SCH (18:00)
[2016-05-06] MEDS ORDERED: POTASSIUM CHLORIDE INJ 40 MEQ in AMINO AC/ELECTROLYTE/DEX/CALC 2,000 ML IV SCH (18:00)
[2016-05-06] MEDS: FENTANYL/BUPIVACAINE/NACL CADD 250 ML EPIDURAL SCH (21:31)
[2016-05-07 02:00] VITALS: BP 120/60
[2016-05-07] MEDS: SODIUM CHLORIDE 0.9% INJ 10 ML SYR IV SCH ×2 (05:40→18:39)
[2016-05-07 06:00] VITALS: BP 116/58
[2016-05-07] MEDS: HumaLOG INSULIN (NovoLOG) PER UNIT SC SCH ×3 (06:00→17:26)
[2016-05-07] MEDS: PANTOPRAZOLE 40MG INJ (PROTONIX) (C9113) IV SCH (09:11)
[2016-05-07] MEDS: ERTAPENEM SODIUM 1 GM in NS MINI-BAG PLUS 50 ML IV SCH (09:11)
[2016-05-07] MEDS: ENOXAPARIN 40 MG/0.4 ML SYRINGE (J1650) SC SCH (09:12)
[2016-05-07 10:00] VITALS: BP_SYST 130; BP_SYST 140; BP_DIAS 70
[2016-05-07 18:00] VITALS: BP 130/70
[2016-05-07] MEDS ORDERED: AMINO AC/ELECTROLYTE/DEX/CALC 2,000 ML IV SCH (18:00)
[2016-05-07] MEDS ORDERED: FAT EMULSION IV 20% 500 ML IV SCH (18:00)
[2016-05-07] MEDS: FENTANYL/BUPIVACAINE/NACL CADD 250 ML EPIDURAL SCH (20:40)
[2016-05-07 22:00] VITALS: BP 130/72
[2016-05-08 02:00] VITALS: BP 124/68
[2016-05-08] MEDS: SODIUM CHLORIDE 0.9% INJ 10 ML SYR IV SCH ×2 (05:38→17:52)
[2016-05-08 06:00] VITALS: BP 130/68
[2016-05-08] MEDS: HumaLOG INSULIN (NovoLOG) PER UNIT SC SCH ×4 (06:00→17:52)
[2016-05-08 06:06] LABS: MEAN CORPUSCULAR HEMOGLOBIN 22.9 pg (27.0-33.0); MEAN CORPUSCULAR VOLUME 73.9 fl (80.0-96.0); PLATELET COUNT, AUTOMATED 242 k/mm3 (150-450); RED CELL DISTRIBUTION WIDTH 15.3 % (11.5-14.5); WHITE BLOOD COUNT 11.6 K/mm3 (4.0-10.0)
[2016-05-08 06:31] LABS: ANION GAP 9 MEQ/L (8-16); BLOOD UREA NITROGEN 14 MG/DL (7-18); CALCIUM LEVEL 7.6 MG/DL (8.8-10.2); CARBON DIOXIDE LEVEL 29 MEQ/L (21-32); CHLORIDE LEVEL 99 MEQ/L (98-107); CREATININE FOR GFR 0.38 MG/DL (0.55-1.02); GLOMERULAR FILTRATION RATE > 60.0 (>45); GLUCOSE, FASTING 87 MG/DL (80-110); MAGNESIUM LEVEL 1.8 MG/DL (1.8-2.4); POTASSIUM SERUM 3.9 MEQ/L (3.5-5.1); SODIUM LEVEL 137 MEQ/L (136-145)
[2016-05-08 06:35] LABS: BANDS 1 % (< 11); BASOPHILS 2 % (0-4); EOSINOPHILS 2 % (0-5)
[2016-05-08 06:37] LABS: OVALOCYTES 1+
[2016-05-08 06:38] LABS: ANISOCYTOSIS 1+
[2016-05-08] MEDS: ERTAPENEM SODIUM 1 GM in NS MINI-BAG PLUS 50 ML IV SCH (08:44)
[2016-05-08] MEDS: ENOXAPARIN 40 MG/0.4 ML SYRINGE (J1650) SC SCH (08:44)
[2016-05-08] MEDS: PANTOPRAZOLE 40MG TAB (PROTONIX) PO SCH (08:44)
[2016-05-08 10:00] VITALS: BP 130/72
[2016-05-08 14:00] VITALS: BP 140/80
[2016-05-08 18:00] VITALS: BP 130/70
[2016-05-08] MEDS ORDERED: MULTIVITAMIN -ADULT INJECTION 10 ML, CR/CU/SE/MN/ZN INJ 1 ML in AMINO AC/ELECTROLYTE/DE... IV SCH (18:00)
[2016-05-08] MEDS ORDERED: FAT EMULSION IV 20% 500 ML IV SCH (18:00)
[2016-05-08] MEDS: FENTANYL/BUPIVACAINE/NACL CADD 250 ML EPIDURAL SCH (21:13)
[2016-05-08 22:00] VITALS: BP 148/76
[2016-05-09] MEDS: HumaLOG INSULIN (NovoLOG) PER UNIT SC SCH ×4 (00:18→18:00)
[2016-05-09 02:00] VITALS: BP 142/72
[2016-05-09 06:00] VITALS: BP 152/72
[2016-05-09] MEDS: SODIUM CHLORIDE 0.9% INJ 10 ML SYR IV SCH ×2 (06:00→18:15)
[2016-05-09] MEDS: PANTOPRAZOLE 40MG TAB (PROTONIX) PO SCH (08:34)
[2016-05-09] MEDS: ENOXAPARIN 40 MG/0.4 ML SYRINGE (J1650) SC SCH (08:35)
[2016-05-09 10:00] VITALS: BP 146/74
[2016-05-09 14:00] VITALS: BP 134/82
[2016-05-09] MEDS ORDERED: FAT EMULSION IV 20% 500 ML IV SCH (18:00)
[2016-05-09] MEDS ORDERED: AMINO AC/ELECTROLYTE/DEX/CALC 2,000 ML IV SCH (18:00)
[2016-05-09] MEDS: FENTANYL/BUPIVACAINE/NACL CADD 250 ML EPIDURAL SCH (21:28)
[2016-05-09 22:00] VITALS: BP 142/72
[2016-05-10 02:00] VITALS: BP 148/72
[2016-05-10] MEDS: HumaLOG INSULIN (NovoLOG) PER UNIT SC SCH ×3 (05:54→11:34)
[2016-05-10 06:00] VITALS: BP 142/72
[2016-05-10] MEDS: SODIUM CHLORIDE 0.9% INJ 10 ML SYR IV SCH ×2 (06:12→18:00)
[2016-05-10 06:38] LABS: MEAN CORPUSCULAR HEMOGLOBIN 23.8 pg (27.0-33.0); MEAN CORPUSCULAR HGB CONC 31.6 g/dl (32.0-36.5); MEAN CORPUSCULAR VOLUME 75.3 fl (80.0-96.0); PLATELET COUNT, AUTOMATED 280 k/mm3 (150-450); RED CELL DISTRIBUTION WIDTH 15.3 % (11.5-14.5)
[2016-05-10 07:00] LABS: ALBUMIN 1.6 GM/DL (3.2-5.2); ALBUMIN/GLOBULIN RATIO 0.48 (1.00-1.93); ALKALINE PHOSPHATASE 103 U/L (45-117); ALT/SGPT 7 U/L (12-78); ANION GAP 9 MEQ/L (8-16); AST/SGOT 8 U/L (15-37); BILIRUBIN,TOTAL 0.5 MG/DL (0.2-1.0); BLOOD UREA NITROGEN 12 MG/DL (7-18); CALCIUM LEVEL 7.4 MG/DL (8.8-10.2); CARBON DIOXIDE LEVEL 28 MEQ/L (21-32); CHLORIDE LEVEL 96 MEQ/L (98-107); CREATININE FOR GFR 0.35 MG/DL (0.55-1.02); GLOMERULAR FILTRATION RATE > 60.0 (>45); GLUCOSE, FASTING 96 MG/DL (80-110); POTASSIUM SERUM 3.9 MEQ/L (3.5-5.1); SODIUM LEVEL 133 MEQ/L (136-145); TOTAL PROTEIN 4.9 GM/DL (6.4-8.2)
[2016-05-10 07:43] LABS: BANDS 1 % (< 11); BASOPHILS 1 % (0-4)
[2016-05-10 07:44] LABS: HYPOCHROMASIA 1+
[2016-05-10] MEDS: PANTOPRAZOLE 40MG TAB (PROTONIX) PO SCH (09:00)
[2016-05-10] MEDS: ENOXAPARIN 40 MG/0.4 ML SYRINGE (J1650) SC SCH (09:03)
--- NOTE | 2016-05-10 09:53 | REP ---
SUPINE ABDOMEN: 05/10/2016 CLINICAL HISTORY: Follow-up small bowel obstruction. COMPARISON: CT abdomen and pelvis 05/04/2016, KUB 05/03/2016, 05/02/2016. FINDINGS: Midline onel from the mid upper abdomen to the pelvis from laparotomy. An epidural catheter is seen at the T11-12 level. The gas pattern shows gas scattered throughout small bowel and some in the colon with less distension than on the previous two studies. The pattern still suggest some ileus or partial small-bowel obstruction. It is certainly improved compared to the two previous plain films. Signed by Colin Huerta MD 05/10/2016 10:03 A
[2016-05-10 10:00] VITALS: BP 120/76
[2016-05-10 14:00] VITALS: BP 150/80
[2016-05-10 16:00] VITALS: BP 148/72
[2016-05-10] MEDS ORDERED: FAT EMULSION IV 20% 500 ML IV SCH (18:00)
[2016-05-10] MEDS ORDERED: MULTIVITAMIN -ADULT INJECTION 10 ML, CR/CU/SE/MN/ZN INJ 1 ML in AMINO AC/ELECTROLYTE/DE... IV SCH (18:00)
[2016-05-10] MEDS: FENTANYL/BUPIVACAINE/NACL CADD 250 ML EPIDURAL SCH (21:22)
[2016-05-10 22:00] VITALS: BP 148/68
[2016-05-11 02:00] VITALS: BP 150/80
[2016-05-11] MEDS: SODIUM CHLORIDE 0.9% INJ 10 ML SYR IV SCH ×2 (05:47→18:39)
[2016-05-11 06:00] VITALS: BP 138/70
[2016-05-11] MEDS ORDERED: LACTULOSE 20 GM/30 ML SYRUP UD PO SCH (09:00)
[2016-05-11] MEDS: PANTOPRAZOLE 40MG TAB (PROTONIX) PO SCH (09:19)
[2016-05-11] MEDS: ENOXAPARIN 40 MG/0.4 ML SYRINGE (J1650) SC SCH (09:19)
[2016-05-11 10:00] VITALS: BP 160/72
[2016-05-11] MEDS: ACETAMINOPHEN TAB 650MG DOSE (2X325MG) PO PRN (12:06)
[2016-05-11] MEDS ORDERED: ONDANSETRON 4MG/2ML VIAL (J2405) IV PRN (12:15)
[2016-05-11] MEDS ORDERED: ONDANSETRON 4 MG ORAL DISINTEGRATING TAB (S0181) PO PRN (12:15)
[2016-05-11 14:00] VITALS: BP 180/90
[2016-05-11] MEDS: LR 1,000 ML IV SCH (15:00)
[2016-05-11] MEDS ORDERED: METOCLOPRAMIDE INJ 10MG/2ML VIAL (J2765) IV PRN (15:00)
[2016-05-11] MEDS: KETOROLAC 30 MG/ML VIAL (J1885) IV PRN ×2 (15:37→21:43)
[2016-05-11 18:00] VITALS: BP 171/84
[2016-05-11] MEDS: SODIUM CHLORIDE 0.9% INJ 10 ML SYR IV PRN (21:44)
[2016-05-11 22:00] VITALS: BP_SYST 150; BP_SYST 160; BP_DIAS 70; BP_DIAS 78
[2016-05-12 02:00] VITALS: BP 160/78
[2016-05-12] MEDS: SODIUM CHLORIDE 0.9% INJ 10 ML SYR IV SCH ×2 (05:34→16:58)
[2016-05-12] MEDS: KETOROLAC 30 MG/ML VIAL (J1885) IV PRN ×3 (05:35→23:51)
[2016-05-12 05:47] LABS: BASO % 0.4 % (0.0-1.0); EOS # 0.1 K/mm3 (0.0-0.50); EOS % 0.8 % (0.0-3.0); LARGE UNSTAINED CELL # 0.1 K/mm3 (0.0-0.4); LARGE UNSTAINED CELL % 1.1 % (0.0-4.0); LYMPH # 0.5 K/mm3 (1.5-4.5); LYMPH % 4.4 % (24.0-44.0); MEAN CORPUSCULAR HGB CONC 32.4 g/dl (32.0-36.5); MONO # 0.6 K/mm3 (0.0-0.8); MONO % 4.7 % (0.0-5.0); NEUTROPHILS # 10.8 K/mm3 (1.8-7.7); NEUTROPHILS % 88.7 % (36.0-66.0); PLATELET COUNT, AUTOMATED 282 k/mm3 (150-450); RED CELL DISTRIBUTION WIDTH 14.4 % (11.5-14.5); WHITE BLOOD COUNT 12.2 K/mm3 (4.0-10.0)
[2016-05-12 06:00] VITALS: BP 170/80
[2016-05-12 06:11] LABS: ALBUMIN 1.7 GM/DL (3.2-5.2); ALBUMIN/GLOBULIN RATIO 0.52 (1.00-1.93); ALKALINE PHOSPHATASE 141 U/L (45-117); ALT/SGPT 11 U/L (12-78); ANION GAP 9 MEQ/L (8-16); AST/SGOT 11 U/L (15-37); BILIRUBIN,TOTAL 0.5 MG/DL (0.2-1.0); BLOOD UREA NITROGEN 8 MG/DL (7-18); CALCIUM LEVEL 7.8 MG/DL (8.8-10.2); CARBON DIOXIDE LEVEL 28 MEQ/L (21-32); CHLORIDE LEVEL 101 MEQ/L (98-107); CREATININE FOR GFR 0.39 MG/DL (0.55-1.02); GLOMERULAR FILTRATION RATE > 60.0 (>45); GLUCOSE, FASTING 93 MG/DL (80-110); POTASSIUM SERUM 3.7 MEQ/L (3.5-5.1); SODIUM LEVEL 138 MEQ/L (136-145)
[2016-05-12] MEDS: LR 1,000 ML IV SCH (06:42)
--- NOTE | 2016-05-12 09:37 | REP ---
KUB: Single view. HISTORY: Small bowel obstruction versus ileus. Comparison study is from May 10, 2016. FINDINGS: There are surgical skin onel in the midline as before. An anastomotic suture line is visible in the left mid abdomen. Another is seen in the right mid abdomen. The epidural catheter noted 2 days ago and has been removed. The bowel gas pattern is much improved. There are still one or two loops of air-filled minimally dilated small bowel in the left mid abdomen. Air and stool is seen in the right and left colon. No other abnormality. IMPRESSION: Postoperative changes. Significant improvement in the bowel gas pattern since the film done on May 10 2016. Signed by Deangelo Ross MD 05/12/2016 02:38 P
[2016-05-12 10:00] VITALS: BP 164/84
[2016-05-12] MEDS: PANTOPRAZOLE 40MG INJ (PROTONIX) (C9113) IV SCH (10:10)
[2016-05-12] MEDS: ENOXAPARIN 40 MG/0.4 ML SYRINGE (J1650) SC SCH (10:10)
[2016-05-12] MEDS ORDERED: FLEET ENEMA PR ONE (11:15)
[2016-05-12] MEDS: DOCUSATE SODIUM 100 MG CAP PO SCH ×3 (12:19→20:17)
[2016-05-12 14:00] VITALS: BP 150/80
[2016-05-12 18:00] VITALS: BP 150/80
--- NOTE | 2016-05-12 20:17 | IPN ---
DATE: 05/12/2016 SUBJECTIVE: Mrs. Sargent was seen by me for an initial consult on 04/28 after she had laparotomy for a bowel obstruction. Subsequently we had arranged for her to have a followup appointment at [facility]. However, she developed another bowel obstruction and underwent surgery on 05/05 for lysis of adhesions, partial omentectomy and diverting ileocolic anastomosis. At present, Mrs. Sargent reports that she has not passed any bowel movements since surgery. However, she has been passing gas. She has been feeling better since the surgery from seven days ago. IMPRESSION AND PLAN: I discussed with Mrs. Sargent that small bowel cancers can be hard to treat especially those with peritoneal carcinomatosis and recurring intestinal obstruction from peritoneal carcinomatosis. In this instance, we would not be able to start chemotherapy until after the bowel obstruction has resolved. After a discussion, Mrs. Sargent and her family asked for a second opinion referral to an academic center. I did discuss the prognosis with Mrs. Sargent and her family. I have discussed the above with Dr. Amaya. [facility] CENTERBrant
[2016-05-12 22:00] VITALS: BP 158/80
[2016-05-13 02:00] VITALS: BP 160/58
[2016-05-13] MEDS: SODIUM CHLORIDE 0.9% INJ 10 ML SYR IV SCH ×2 (05:31→16:58)
[2016-05-13 06:00] VITALS: BP 118/78
[2016-05-13] MEDS: KETOROLAC 30 MG/ML VIAL (J1885) IV PRN ×2 (08:15→14:25)
[2016-05-13] MEDS: ENOXAPARIN 40 MG/0.4 ML SYRINGE (J1650) SC SCH (08:15)
[2016-05-13] MEDS: PANTOPRAZOLE 40MG INJ (PROTONIX) (C9113) IV SCH (08:15)
[2016-05-13] MEDS: DOCUSATE SODIUM 100 MG CAP PO SCH ×3 (08:15→20:44)
[2016-05-13 10:00] VITALS: BP 148/88
[2016-05-13 14:00] VITALS: BP 142/100
[2016-05-13 18:00] VITALS: BP 152/86
[2016-05-13 22:00] VITALS: BP 150/74
[2016-05-14] MEDS: KETOROLAC 30 MG/ML VIAL (J1885) IV PRN ×4 (01:18→23:50)
[2016-05-14] MEDS: SODIUM CHLORIDE 0.9% INJ 10 ML SYR IV PRN ×3 (01:19→23:51)
[2016-05-14 02:00] VITALS: BP 150/62
[2016-05-14] MEDS: SODIUM CHLORIDE 0.9% INJ 10 ML SYR IV SCH ×2 (05:12→17:09)
[2016-05-14 06:00] VITALS: BP 140/74
[2016-05-14] MEDS: DOCUSATE SODIUM 100 MG CAP PO SCH ×4 (08:40→20:21)
[2016-05-14] MEDS: PANTOPRAZOLE 40MG INJ (PROTONIX) (C9113) IV SCH (08:41)
[2016-05-14] MEDS: ENOXAPARIN 40 MG/0.4 ML SYRINGE (J1650) SC SCH (08:42)
[2016-05-14 10:00] VITALS: BP 168/78
[2016-05-14 14:00] VITALS: BP 148/76
[2016-05-14 18:00] VITALS: BP 164/72
[2016-05-14 22:00] VITALS: BP 138/64
[2016-05-15 02:00] VITALS: BP 130/70
[2016-05-15] MEDS: SODIUM CHLORIDE 0.9% INJ 10 ML SYR IV SCH ×2 (05:07→17:28)
[2016-05-15 05:40] LABS: BASO % 0.3 % (0.0-1.0); EOS # 0.2 K/mm3 (0.0-0.50); EOS % 2.4 % (0.0-3.0); LARGE UNSTAINED CELL # 0.1 K/mm3 (0.0-0.4); LARGE UNSTAINED CELL % 1.6 % (0.0-4.0); LYMPH # 0.6 K/mm3 (1.5-4.5); LYMPH % 8.3 % (24.0-44.0); MEAN CORPUSCULAR VOLUME 75.1 fl (80.0-96.0); MONO # 0.4 K/mm3 (0.0-0.8); MONO % 6.2 % (0.0-5.0); NEUTROPHILS # 5.4 K/mm3 (1.8-7.7); NEUTROPHILS % 81.1 % (36.0-66.0); PLATELET COUNT, AUTOMATED 305 k/mm3 (150-450); RED CELL DISTRIBUTION WIDTH 14.8 % (11.5-14.5); WHITE BLOOD COUNT 6.6 K/mm3 (4.0-10.0)
[2016-05-15 06:00] VITALS: BP 138/66
[2016-05-15] MEDS: KETOROLAC 30 MG/ML VIAL (J1885) IV PRN (06:04)
[2016-05-15] MEDS: SODIUM CHLORIDE 0.9% INJ 10 ML SYR IV PRN (06:04)
[2016-05-15 06:35] LABS: ALBUMIN 1.9 GM/DL (3.2-5.2); ALBUMIN/GLOBULIN RATIO 0.54 (1.00-1.93); ALKALINE PHOSPHATASE 110 U/L (45-117); ALT/SGPT 16 U/L (12-78); ANION GAP 11 MEQ/L (8-16); AST/SGOT 16 U/L (15-37); BILIRUBIN,TOTAL 0.5 MG/DL (0.2-1.0); BLOOD UREA NITROGEN 12 MG/DL (7-18); CALCIUM LEVEL 7.7 MG/DL (8.8-10.2); CARBON DIOXIDE LEVEL 26 MEQ/L (21-32); CHLORIDE LEVEL 100 MEQ/L (98-107); CREATININE FOR GFR 0.42 MG/DL (0.55-1.02); GLOMERULAR FILTRATION RATE > 60.0 (>45); GLUCOSE, FASTING 84 MG/DL (80-110); POTASSIUM SERUM 3.1 MEQ/L (3.5-5.1); SODIUM LEVEL 137 MEQ/L (136-145); TOTAL PROTEIN 5.4 GM/DL (6.4-8.2)
[2016-05-15] MEDS: DOCUSATE SODIUM 100 MG CAP PO SCH ×3 (09:00→20:18)
[2016-05-15] MEDS: POTASSIUM CHLORIDE 10 MEQ SR TABLET PO SCH ×2 (09:08→20:18)
[2016-05-15] MEDS: ENOXAPARIN 40 MG/0.4 ML SYRINGE (J1650) SC SCH (09:09)
[2016-05-15] MEDS: PANTOPRAZOLE 40MG INJ (PROTONIX) (C9113) IV SCH (09:09)
[2016-05-15 10:00] VITALS: BP 120/72
[2016-05-15 14:00] VITALS: BP 131/66
[2016-05-15 18:00] VITALS: BP 152/84
[2016-05-15 22:00] VITALS: BP 148/78
[2016-05-15] MEDS: ACETAMINOPHEN TAB 650MG DOSE (2X325MG) PO PRN (22:38)
[2016-05-16 02:00] VITALS: BP 150/84
[2016-05-16 06:00] VITALS: BP 148/80
[2016-05-16] MEDS: SODIUM CHLORIDE 0.9% INJ 10 ML SYR IV SCH (06:08)
[2016-05-16] MEDS: PANTOPRAZOLE 40MG INJ (PROTONIX) (C9113) IV SCH (09:13)
[2016-05-16] MEDS: DOCUSATE SODIUM 100 MG CAP PO SCH (09:13)
[2016-05-16] MEDS: ENOXAPARIN 40 MG/0.4 ML SYRINGE (J1650) SC SCH (09:13)
[2016-05-16] MEDS: SODIUM CHLORIDE 0.9% INJ 10 ML SYR IV PRN (09:13)
[2016-05-16 10:00] VITALS: BP 148/78
[2016-05-16] MEDS ORDERED: COLA100C PO (11:56)
[2016-05-24] MEDS ORDERED: COLA100C PO (14:03)
[2016-05-25] MEDS ORDERED: ADVI200C5 PO (09:25)
--- NOTE | 2016-05-30 18:43 | DSES ---
DATE OF ADMISSION: 04/23/2016 DATE OF DISCHARGE: 05/16/2016 ADMISSION DIAGNOSIS: Proximal jejunal mass with intestinal obstruction. HISTORY OF PRESENT ILLNESS: The patient is a very pleasant 70-year-old woman who presented to the emergency department just after 1 p.m. on 04/23/2016. She complained of an inability to eat due to nausea and vomiting with weight loss. She reports that her symptoms started back on or about 03/02/2016. She reports that she has lost approximately 20 pounds since then. She indicates that she had a meal at a restaurant on 03/02/2016, and developed some nausea and emesis after this. Over the last 6 weeks or so she has noted frequent episodes of nausea with vomiting. She occasionally has some crampy discomfort across the upper abdomen. Over the last week or so in particular she has noticed increased symptoms. She had been taking anastrozole for a history of breast cancer but stopped this when she thought it might be contributing. She saw no improvement. She was seen in an urgent care center on or about 04/22/2016, at which time they made a diagnosis of pneumonia based on the chest x-ray and started her on prednisone and azithromycin. She tried to take the medicine but was unable to keep it down. She has had persistent nausea and vomiting with inability to tolerate any oral intake essentially for the last 2-3 days. She was brought to the emergency department by a friend who checked on her and discovered that she was not getting any better. She had some baseline laboratory studies obtained. A CT scan of the abdomen and pelvis was done. The images showed marked dilation of the proximal jejunum at the ligament of Treitz. There was an obstructing mass noted in the proximal jejunum. There was diffuse mural thickening noted in that area. She was also noted to have some enlarged mesenteric nodes as well as some small nodules scattered within the omentum. The images were felt to be most consistent with some form of malignancy. The patient was admitted for management. HOSPITAL COURSE: The patient received IV hydration. On 04/24/2016, the patient was taken to the operating room after appropriate counseling and underwent an exploratory laparotomy. She was found to have a malignant appearing obstruction in the proximal jejunum with diffuse carcinomatosis. There were extensively distributed small nodules on the omentum and small bowel and down in the pelvis. There was a circumferential mass in the proximal jejunum causing an obstruction. She underwent a resection of the small bowel mass with an anastomosis. An epidural catheter was used for postoperative pain management. A Montano catheter was continued because of the epidural. She had a nasogastric (NG) tube in place which was removed on postoperative day #1. She was allowed to take a few ice chips only. She reported no problems after the NG tube was removed. She was found to be iron deficient and was given some intravenous Venofer. She was started on some clear liquids on postoperative day #2. Her epidural catheter was gradually diminished. Her protein and albumin were low consistent with her weeks of poor oral intake and weight loss. The patient's pathology returned as poorly differentiated adenocarcinoma which was felt to be most consistent based on the distribution with a small bowel primary. I spoke with Dr. Pritchard of medical oncology and requested a consultation. The patient's epidural was discontinued on 04/28/2016. The patient reported some flatus but no bowel movement. She was placed on some stool softeners to assist with bowel function. By postoperative day #7 she reported one episode of emesis. Her abdomen seemed to be mildly full but she had normoactive bowel sounds. She was given some MiraLax to see if that would help with restarting her bowel function. Options were discussed with the patient and she felt it would be best for her to be seen at [facility] for a consultation. The patient developed recurrent abdominal distension and vomiting following the MiraLax. Fleet enemas with some manual disimpaction by the nurse helped clear the rectum of stool but she did not have a return of bowel function. A KUB showed some dilated small bowel. The patient was made nothing by mouth. She was placed back on IV support. She did have some hypokalemia which responded to intravenous repletion. A CT scan was repeated which showed distended small bowel extending down into the pelvis with a lot of ascites. She appeared to have developed another obstruction down in the pelvis. She had developed small bilateral pleural effusions as well. The patient was started on total parenteral nutrition. She was scheduled for exploratory laparotomy. On 05/05/2016, she underwent exploratory laparotomy. She was found to have extensive carcinomatosis as noted previously. There were some adhesions of the omentum down into the pelvis which actually appeared to be new. There was some small bowel that extended down into the pelvis around the sigmoid colon which was densely adherent by multiple tumor nodules and I did not attempt to mobilize this. Instead an ileocolic diverting anastomosis was performed in the right lower quadrant between the ileum proximal to her obstruction and the cecum. Her epidural had been replaced for the surgery. She was continued on total parenteral nutrition. She was able to ambulate in the hallway. Her Montano catheter was continued while her epidural was in place. She began to have signs of returning bowel function with some flatus. She was started back on some clear liquids. She remained afebrile with stable vital signs. The patient requested that her tumor be tested for microsatellite instability at the urging of her brother and so this was requested. She was advanced to full liquids on 05/09/2016. The patient and I discussed her status and the extensive nature of her tumor. The patient and I discussed her Medical Orders for Life-Sustaining Treatment and she elected to enact a DO NOT RESUSCITATE order. Her epidural was discontinued on 05/11/2016. She began to tolerate oral nutrition better with some increased flatus. I spoke with Dr. Pritchard and asked her to come back to discuss with the patient whether there were any changes in the potential plan. The patient gradually had improved bowel function. I did speak with Merceryany Delaney about a possible inpatient transfer because the patient and her family were also interested in pursuing more aggressive treatment but was advised that an inpatient transfer would not be likely. She began to take foods better. Her hematocrit stabilized at about 28-30. She did well with some regular food. Her wounds healed well and her onel were discontinued on 05/16/2016. An appointment was made for an outpatient consultation at [facility] [place] and she was discharged home on 05/16/2016. FINAL DIAGNOSES: 1. 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 2. Weight loss secondary to recurrent nausea and vomiting from intestinal obstruction. 3. Iron deficiency with marked microcytosis. 4. Personal history of bilateral breast cancer. 5. Hyperlipidemia. 6. Chronic obstructive pulmonary disease. 7. Hypokalemia, repleted with intravenous potassium chloride. 8. 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 PROCEDURES PERFORMED: 1. On 04/24/2016, is exploratory laparotomy with lysis of adhesions, resection of proximal jejunal obstructing mass with small bowel anastomosis. 2. A second operation on 05/05/2016, is exploratory laparotomy with lysis of adhesions, partial omentectomy, and diverting ileocolonic anastomosis. DISPOSITION: The patient was discharged home on 05/16/2016. She was to followup with me in the office on 05/24/2016 at 10 o'clock. She was to see Dr. Pritchard in her office on 05/18/2016, at 8 o'clock in the morning. She was to arrange her own followup with Dr. Waggoner, her primary physician. She could take a regular diet but was advised to follow a low residue or low fiber diet. She could shower as desired. The patient was to be scheduled for an outpatient visit at [facility] and the planning was underway for this visit at the time of her discharge. She was to use a stool softener as needed to avoid constipation. She was provided a prescription for Colace. She was to continue her ProAir inhaler, her biotin, her fish oil, simvastatin, vitamin D, anastrozole and calcium as before admission. She was not to restart her azithromycin or prednisone. She was to return to the emergency department or call for any significant problems.
== END 2016-05-16 14:09 | disposition home or self-care (01) | DRG 330 ==
LOC: M ED 13:13 → M ED INP 21:21 → M MSPAV 22:21
PROVIDERS: ADMIT Surgery; ATTEND Surgery
PROC: 0DBA0ZX Excision of Jejunum, Open Approach, Diagnostic (ICD-10-PCS; 2016-04-24)
PROC: 05HB33Z Insertion of Infusion Device into Right Basilic Vein, Percutaneous Approach (ICD-10-PCS; 2016-05-04)
PROC: 3E0336Z Introduction of Nutritional Substance into Peripheral Vein, Percutaneous Approach (ICD-10-PCS; 2016-05-04)
PROC: 0DNS0ZZ (ICD-10-PCS; 2016-05-05)
PROC: 0DBS0ZX (ICD-10-PCS; 2016-05-05)
PROC: 0D1 Gastrointestinal System, Bypass (ICD-10-PCS; principal; 2016-05-05 14:46)
DX: C17.1 Malignant neoplasm of jejunum (principal); R18.8 Other ascites; K56.69 Other intestinal obstruction; C78.6 Secondary malignant neoplasm of retroperitoneum and peritoneum; J90 Pleural effusion, not elsewhere classified; R63.4 Abnormal weight loss; Z66 Do not resuscitate; D50.9 Iron deficiency anemia, unspecified; D72.829 Elevated white blood cell count, unspecified; E78.5 Hyperlipidemia, unspecified; J44.9 Chronic obstructive pulmonary disease, unspecified; R11.2 Nausea with vomiting, unspecified; Z90.13 Acquired absence of bilateral breasts and nipples; Z79.52 Long term (current) use of systemic steroids; Z85.3 Personal history of malignant neoplasm of breast; Z79.899 Other long term (current) drug therapy

== ENCOUNTER → 2016-05-25 | Day surgery (SDC) | payer OTHER ==
[~2016-05-25] VITALS: Ht 149.9 cm; Wt 46.7 kg
[~2016-05-25] MED LIST changes: +ACETAMINOPHEN TAB 650MG DOSE (2X325MG) PO PRN; +ADVI200C5 PO; +ANAS1TAB PO; +AZIT250T3 PO; +BIOT10005 PO; +CALC600T10 PO; +COLA100C PO; +FISH5CAP PO; +HEPARIN SOD (PORCINE) 5000 UNITS/ML VIAL As Ordered ONE; +HEPARIN SOD (PORCINE) 5000 UNITS/ML VIAL XX ONE; +LIDOCAINE 1% SDV INJ 30 ML VIAL As Ordered ONE; +LIDOCAINE 1% SDV INJ 30 ML VIAL XX ONE; +LIDOCAINE 2% INJ 100 MG/5 ML SDV (FOR ANES.) As Ordered ONE; +LR 1,000 ML IV SCH; +MIDAZOLAM INJ 2 MG/2 ML VIAL (J2250) As Ordered ONE; +PRED20TA PO; +PROA1AER INH; +PROPOFOL 200 MG/20 ML VIAL As Ordered ONE; +SIMV20TA2 PO; +fentaNYL 100 MCG/2 ML INJECTION (J3010) As Ordered ONE
--- NOTE | 2016-05-25 11:38 | REP ---
Partial chest x-ray: Single view. History: Bowel cancer. 3 seconds of fluoroscopy time is reported. Findings: A single fluoroscopically obtained last image hold spot radiograph of the chest documents catheter placement position. Signed by Deangelo Ross MD 05/25/2016 01:55 P
[2016-05-25 12:45] VITALS: BP 120/71
--- NOTE | 2016-05-26 06:57 | RO ---
DATE OF PROCEDURE: 05/25/2016 PREOPERATIVE DIAGNOSIS: Need for chemotherapy access. POSTOPERATIVE DIAGNOSIS: Need for chemotherapy access. PROCEDURE PERFORMED: Placement of right internal jugular vein [id number] with ultrasound and fluoroscopic guidance. 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 She is going to be starting chemotherapy and is for placement of a right internal jugular vein [id number]. OPERATIVE PROCEDURE: The patient was placed supine on the operating table. The patient's neck and upper chest were prepped and draped in a sterile fashion. The ultrasound probe was draped sterilely. The right side of the patient's neck was inspected and with the patient in a Trendelenburg position she had an excellent internal jugular vein. The carotid artery was nicely identified as well. The site of the vein was marked on the skin. Local anesthesia was achieved with 1% Xylocaine. Then, under ultrasound guidance an 18 gauge needle was inserted through the skin and directed into the vein. There was excellent venous return. The guidewire was passed without difficulty. The skin was nicked with an 11 blade and the peel-away sheath introducer was placed. The catheter of the Bard port [id number] was advanced through the sheath and the sheath was then removed. The catheter was flushed and withdrawn to approximately 14 cm of the skin surface. Using fluoroscopy, the catheter insertion was inspected. The catheter was a little deep and was withdrawn to approximately 12 cm at the skin surface. Blood aspirated readily and the catheter was then re-flushed. Additional local anesthesia was achieved in the infraclavicular fossa. The patient has bilateral breast implants from reconstructions and there was not much room between the clavicle and the superior aspect of the breast implant. An approximately 2-1/2 to 3 cm transverse skin incision was made. A subcutaneous pocket was created working inferiorly toward the breast. Care was taken to avoid the implant. Hemostasis was ensured with electrocautery. The catheter was tunneled subcutaneously down to the port site. The port was flushed with heparinized saline and the catheter was then cut to length and attached to the port using the locking ring. The port was placed into the subcutaneous pocket and the port was sutured to the underlying fascia with two simple sutures of #3-0 Vicryl. The subcutaneous tissues were closed with #3-0 Vicryl and the skin incisions were closed with subcuticular sutures of #5-0 Vicryl. The catheter was accessed and flushed a final time with 100 units per mL heparin. The skin incisions were covered with Steri-Strips and small OpSite dressings. The patient tolerated the procedure well without apparent complication. She was transported to the advanced recovery room in stable condition. The port implanted was a Packetmotion MRI implantable port reference number [id number], lot number [id number].
== END | disposition home or self-care (01) ==
LOC: M SDC 07:36
PROVIDERS: ATTEND Surgery
DX: C17.9 Malignant neoplasm of small intestine, unspecified (principal); E78.00 Pure hypercholesterolemia, unspecified; D64.9 Anemia, unspecified; Z90.710 Acquired absence of both cervix and uterus; Z85.3 Personal history of malignant neoplasm of breast; Z87.442 Personal history of urinary calculi; Z87.440 Personal history of urinary (tract) infections
CPT/HCPCS: 36561; 76000; C1788; J0690; J2250; J3010

== ENCOUNTER → 2016-06-07 | Outpatient (REF) | payer OTHER ==
[~2016-06-07] MED LIST changes: -ACETAMINOPHEN TAB 650MG DOSE (2X325MG) PO PRN; -HEPARIN SOD (PORCINE) 5000 UNITS/ML VIAL As Ordered ONE; -HEPARIN SOD (PORCINE) 5000 UNITS/ML VIAL XX ONE; -LIDOCAINE 1% SDV INJ 30 ML VIAL As Ordered ONE; -LIDOCAINE 1% SDV INJ 30 ML VIAL XX ONE; -LIDOCAINE 2% INJ 100 MG/5 ML SDV (FOR ANES.) As Ordered ONE; -LR 1,000 ML IV SCH; -MIDAZOLAM INJ 2 MG/2 ML VIAL (J2250) As Ordered ONE; +ONDA1TAB16 PO; +PROC10TA PO; -PROPOFOL 200 MG/20 ML VIAL As Ordered ONE; +SENN8.6T10 PO; -fentaNYL 100 MCG/2 ML INJECTION (J3010) As Ordered ONE
== END ==
LOC: M LAB REF 12:53
PROVIDERS: ATTEND Internal Medicine Medical Oncology
DX: C17.9 Malignant neoplasm of small intestine, unspecified (principal)

== ENCOUNTER 2016-06-12 13:34 | Inpatient (IN) | payer OTHER ==
[~2016-06-12] VITALS: Ht 152.4 cm; Wt 45.2 kg
[~2016-06-12 13:34] MED LIST changes: -ONDA1TAB16 PO; -PROC10TA PO; -SENN8.6T10 PO
--- NOTE | 2016-06-12 14:23 | REP ---
Clinical: Acute abdominal pain. Technique: Upright view of the chest with supine and upright views of the abdomen and pelvis. Findings: Frontal upright view of the chest demonstrates no acute cardiopulmonary process or free air below the diaphragm to suspect pneumoperitoneum. [id number] identified with tip in the SVC. Upright view of the abdomen demonstrates a few air-fluid levels which are nonspecific and differential diagnosis would include early obstruction and enterocolitis. Surgical changes appreciated with suture material in the left mid abdomen and right lower quadrant. Skeletal structures demonstrate stable degenerative changes. Impression: Few small air fluid levels are nonspecific and differential diagnosis includes normal bowel pattern as well as early obstruction and enterocolitis. Signed by Shay Block MD 06/12/2016 02:15 P
[2016-06-12 14:41] LABS: MEAN CORPUSCULAR HEMOGLOBIN 24.9 pg (27.0-33.0); MEAN CORPUSCULAR HGB CONC 32.4 g/dl (32.0-36.5); MEAN CORPUSCULAR VOLUME 76.8 fl (80.0-96.0); PLATELET COUNT, AUTOMATED 320 k/mm3 (150-450); RED CELL DISTRIBUTION WIDTH 16.9 % (11.5-14.5); WHITE BLOOD COUNT 11.3 K/mm3 (4.0-10.0)
[2016-06-12 14:59] LABS: ALBUMIN 2.9 GM/DL (3.2-5.2); ALBUMIN/GLOBULIN RATIO 0.85 (1.00-1.93); ALKALINE PHOSPHATASE 194 U/L (45-117); ALT/SGPT 13 U/L (12-78); AMYLASE 43 U/L (25-115); ANION GAP 11 MEQ/L (8-16); AST/SGOT 9 U/L (15-37); BILIRUBIN,DIRECT 0.2 MG/DL (0.0-0.2); BILIRUBIN,TOTAL 0.6 MG/DL (0.2-1.0); BLOOD UREA NITROGEN 24 MG/DL (7-18); CALCIUM LEVEL 8.8 MG/DL (8.8-10.2); CARBON DIOXIDE LEVEL 27 MEQ/L (21-32); CHLORIDE LEVEL 97 MEQ/L (98-107); CREATININE FOR GFR 0.53 MG/DL (0.55-1.02); GLOMERULAR FILTRATION RATE > 60.0 (>45); GLUCOSE, FASTING 122 MG/DL (80-110); POTASSIUM SERUM 3.9 MEQ/L (3.5-5.1); SODIUM LEVEL 135 MEQ/L (136-145); TOTAL PROTEIN 6.3 GM/DL (6.4-8.2)
[2016-06-12 15:06] LABS: BANDS 6 % (< 11); POIKILOCYTOSIS 1+; TOXIC GRANULATION 1+
[2016-06-12 15:07] LABS: ANISOCYTOSIS 1+; MICROCYTOSIS 1+
[2016-06-12] MEDS ORDERED: ISOVUE-370 76% 100ML VIAL (Q9967) As Ordered ONE (15:08)
--- NOTE | 2016-06-12 15:52 | REP ---
Clinical: Generalized abdominal pain. Technique: Axial contrast enhanced images from the lung bases to the pubic symphysis using 100 ml Isovue 370 intravenous contrast material with coronal and sagittal re-formations. Comparison: 05/04/2016, 04/23/2016 Findings: Current examination demonstrates moderate ascites, diffuse mesenteric adenopathy and suspected mesenteric infiltration along with irregular enhancing loops of bowel as well as diffusely fluid-filled bowel and evidence for prior partial resection and anastomoses in the right lower quadrant. Innumerable hepatic hypodensities are now identified which were essentially non apparent on contrast enhanced study dated 04/23/2016. The above findings are most suggestive of malignancy and metastatic disease. Spleen, pancreas, bilateral adrenal glands are normal. Kidneys demonstrate few hypodensities suggesting cysts. Cholelithiasis noted. No free air. No discrete drainable abscess. Vasculature without evidence for aneurysm. Musculoskeletal structures demonstrate age-related degenerative changes. Lung bases are relatively clear. Evidence for prior bilateral mastectomy. Impression: Above findings including ascites, mesenteric infiltration, mesenteric adenopathy, hyperenhancing bowel wall, fluid filled bowel, and new innumerable hepatic lesions likely represent underlying malignancy and metastatic disease. Signed by Shay Block MD 06/12/2016 03:44 P
[2016-06-12] MEDS ORDERED: ONDANSETRON 4MG/2ML VIAL (J2405) As Ordered ONE (15:53)
[2016-06-12] MEDS ORDERED: SENN8.6T10 PO (16:02)
[2016-06-12] MEDS ORDERED: ONDA1TAB16 PO (16:02)
[2016-06-12] MEDS ORDERED: PROC10TA PO (16:02)
[2016-06-12] MEDS ORDERED: MORPHINE 2 MG/ML 1ML SYRINGE As Ordered ONE ×2 (16:18→19:19)
--- NOTE | 2016-06-12 20:08 | HPEPDOC ---
Medical History and Physical Date of Admission 06/12/16 History and Physical PRIMARY CARE PROVIDER: ATTENDING: Jose Guadalupe Silva M.D. CHIEF COMPLAINT: Abdominal pain HISTORY OF PRESENT ILLNESS: Is a 62-year-old female past history of breast cancer bilaterally status post mastectomy, hyperlipidemia, recent small bowel obstruction 2 status post colectomy, and diagnosis of adenocarcinoma of the small intestine. Patient recently started chemotherapy on Sunday, after which she started to develop epigastric spasms over the past 3-4 days. Patient's states that her last bowel movements was Sunday, however her appetite has been very poorly she's really has not been eating much. Patient states she started to develop nausea and bilious vomiting. No blood. Patient denies any chest pain/possible/palpitations. Abdominal pain is spasmodic in nature. Has currently resolved however is intermittent. ED physician and spoken to Dr. Amaya, with recommendations for holding off on NG tube, starting IV fluids, conservative management, and he will see the patient on consult. He states the patient is not a candidate for surgery now or in the near future. PAST MEDICAL HISTORY: As per HPI PAST SURGICAL HISTORY: Hysterectomy, tonsillectomy, breast reduction surgery, mastectomy bilaterally SOCIAL HISTORY: Denies tobacco, alcohol, illicit drug use. FAMILY HISTORY: Mother with colon cancer age 45 ALLERGIES: Please see below. REVIEW OF SYSTEMS: HEENT: Denies sore throat/headache CARDIOVASCULAR: Denies chest pain/palpitations RESPIRATORY: No shortness of breath/cough GASTROINTESTINAL: + nausea/vomiting GENITOURINARY: Denies dysuria/urinary urgency. MUSCULOSKELETAL: Denies myalgias/arthralgias NEUROLOGICAL: Denies any focal weakness Rest of ROS negative. HOME MEDICATIONS: Please see below. PHYSICAL EXAMINATION: Vitals: (see below) General: No acute distress, laying comfortably in bed. HEENT: Moist mucous membranes. Neck: No JVD or lymphadenopathy Cardiac: RRR, No murmurs Pulm: Clear to auscultation b/l. No wheezing, rhonchi Abd: NT/ND + BS Ext: No edema or cyanosis LABORATORY DATA: See below. IMAGING: CT Abd/pelvis 06/12/16 Findings: Current examination demonstrates moderate ascites, diffuse mesenteric adenopathy and suspected mesenteric infiltration along with irregular enhancing loops of bowel as well as diffusely fluid-filled bowel and evidence for prior partial resection and anastomoses in the right lower quadrant. Innumerable hepatic hypodensities are now identified which were essentially non apparent on contrast enhanced study dated 04/23/2016. The above findings are most suggestive of malignancy and metastatic disease. Spleen, pancreas, bilateral adrenal glands are normal. Kidneys demonstrate few hypodensities suggesting cysts. Cholelithiasis noted. No free air. No discrete drainable abscess. Vasculature without evidence for aneurysm. Musculoskeletal structures demonstrate age-related degenerative changes. Lung bases are relatively clear. Evidence for prior bilateral mastectomy. Impression: Above findings including ascites, mesenteric infiltration, mesenteric adenopathy , hyperenhancing bowel wall, fluid filled bowel, and new innumerable hepatic lesions likely represent underlying malignancy and metastatic disease. MICROBIOLOGY: Please see below. ASSESSMENT/PLAN: 1. Intractable nausea/vomiting/abdominal pain- questionable whether patient has ileus. Has not had a bowel movements since Sunday. We'll starts the patient on suppository and enema. Appreciate Dr. Amaya's input. CT abdomen pelvis with metastatic lesions to liver. I have discussed these results with the patient. We 'll start IV fluids, Zofran when necessary, Protonix IV. Nothing by mouth for now, except for ice chips. The patient has a very poor prognosis. 2. 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 COPD- compensated 4. History of breast cancer status post mastectomy bilaterally DVT prophylaxis enoxaparin Patient followed by Dr. Morrison starting 06/13/16 at 7 AM. Vital Signs Blood pressure 154/84, heart rate 99, respiratory rate 16, afebrile, oxygen saturation 98% on room air Laboratory Data Labs 24H Laboratory Tests 2 06/12/16 14:22: Aspartate Amino Transf (AST/SGOT) 9L, Alanine Aminotransferase (ALT/SGPT) 13, Alkaline Phosphatase 194H, Total Bilirubin 0.6, Direct Bilirubin 0.2, Albumin 2.9L, Albumin/Globulin Ratio 0.85L, Amylase Level 43, Anion Gap 11, Anisocytosis 1+, Band Neutrophils 6, White Blood Count 11.3H, Red Blood Count 4.32, Hemoglobin 10.7L, Hematocrit 33.2L, Mean Corpuscular Volume 76.8L, Mean Corpuscular Hemoglobin 24.9L, Mean Corpuscular Hemoglobin Concent 32.4, Red Cell Distribution Width 16.9H, Platelet Count 320, Neutrophils (%) (Auto) , Lymphocytes (%) (Auto) , Monocytes (%) (Auto) , Eosinophils (%) (Auto) , Basophils (%) (Auto) , Neutrophils # (Auto) , Lymphocytes # (Auto) , Monocytes # (Auto) , Eosinophils # (Auto) , Basophils # (Auto) , Calcium Level 8.8, Glomerular Filtration Rate > 60.0, Large Unclassified Cells # , Large Unclassified Cells % , Lipase 133, Lymphocytes (Manual) 7L, Microcytosis 1+, Monocytes (Manual) 2, Neutrophils 85H, Platelet Estimate NORMAL, Poikilocytosis 1+, Total Protein 6.3L, Toxic Granulation 1+ CBC/BMP Laboratory Tests 06/12/16 14:22 Red Blood Count 4.32, Mean Corpuscular Volume 76.8 L, Mean Corpuscular Hemoglobin 24.9 L, Mean Corpuscular Hemoglobin Concent 32.4, Red Cell Distribution Width 16.9 H, Neutrophils (%) (Auto) , Lymphocytes (%) (Auto) , Monocytes (%) (Auto) , Eosinophils (%) (Auto) , Basophils (%) (Auto) , Neutrophils # (Auto) , Lymphocytes # (Auto) , Monocytes # (Auto) , Eosinophils # (Auto) , Basophils # (Auto) Home Medications Scheduled Docusate Sodium (Colace) 100 Mg Cap 100 MG PO DAILY Senna (Senna Lax) 8.6 Mg Tab 1 TAB PO DAILY Scheduled PRN Ondansetron HCl (Ondansetron HCl) 8 Mg Tab 8 MG PO BID PRN PRN NAUSEA OR VOMITING Prochlorperazine Maleate (Prochlorperazine Maleate) 10 Mg Tab 10 MG PO Q6H PRN PRN NAUSEA OR VOMITING Allergies Coded Allergies: No Known Allergies (Unverified , 05/25/16) JOSE GUADALUPE SILVA MD Jun 12, 2016 20:08
[2016-06-12] MEDS ORDERED: FLEET ENEMA PR PRN (20:15)
[2016-06-12] MEDS ORDERED: BISACODYL 10 MG SUPP PR ONE (20:15)
--- NOTE | 2016-06-12 20:19 | ECGEPIP ---
Stationary ECG Study [facility] - ED Test Date: 2016-06-12 Pat Name: ELIJAH ADLER Department: Room: - Gender: F Stain Dipper: gwen : 1945 Requested By: Imani Malone Order Number: [id number] Reading MD: Imani Malone Measurements Intervals [place] Rate: 97 P: 43 [place]: 118 QRS: 63 QRSD: 82 T: 47 QT: 330 QTc: 419 Interpretive Statements SINUS RHYTHM WITH SHORT [place] INTERVAL NSTTW ABNORMALITY SIMILAR 04/23/16 Electronically Signed On 06-12-2016 20:19:32 EST by Imani Malone
[2016-06-12 21:45] VITALS: BP 154/84
--- NOTE | 2016-06-12 21:47 | EDDOCDS ---
Physician Documentation [facility] Name: Patricia Sargent Age: 70 yrs Sex: Female : 1945 Arrival Date: 06/12/2016 Time: 13:34 Bed I7 / 29 Private MD: Orlando Waggoner Disposition: 06/12/16 17:42 Hospitalization ordered by Herbie Sliva for Inpatient Admission. Preliminary diagnosis is Other intestinal obstruction - metastatic colon CA. - Bed requested for 4 [place]. - Status is Inpatient Admission. lf1 - Condition is Stable. - Problem is new. - Symptoms have improved. Historical: - Allergies: no known allergies; - Home Meds: 1. 2 nausea medications 2. Colace 100 mg oral cap 1 cap once daily 3. senna 8.6 mg oral cap 2 caps once daily - PMHx: Cancer, Breast - Left; Cancer, Breast - Right; High Cholesterol; adenocarcinoma of small intestine; - PSHx: breast reconstruction surgery; Mastectomy- Bilateral; Bowel resection; - Social history: Smoking status: Patient states was never smoker of tobacco. No barriers to communication noted, The patient speaks fluent [place], Speaks appropriately for age. - Family history: Not pertinent. - : The pt / caregiver states he / she is not on anticoagulants. Home medication list is obtained from the patient. - Exposure Risk Screening:: None identified. Vital Signs: 06/12 06:30 BP 162 / 79; Pulse 87; lr2 13:36 BP 153 / 91 RA Sitting (auto/reg); Pulse 112; Resp 18; Temp 96.0(T); Pulse Ox 100% on jrd R/A; Weight 45.36 kg / 100 lbs (R); Height 5 ft. 0 in. (152.40 cm); Pain 0/10; 16:40 Pain 2/10; kc3 19:16 BP 142 / 80; Pulse 85; Resp 18; Pulse Ox 97% on R/A; Pain 3/10; lf1 20:27 BP 145 / 86; Pulse 83; Resp 17; Temp 99.8(TE); Pulse Ox 99% on R/A; Pain 0/10; lf1 13:36 Body Mass Index 19.53 (45.36 kg, 152.40 cm) jrd MDM: 13:48 NS 0.9% 1000 ml IV at 250 mL/hr continuous ordered. sd1 13:48 Undress patient appropriately for examination ordered. sd1 13:48 Amylase Ordered. EDMS 13:48 Basic Metabolic Profile Ordered. EDMS 13:48 CBC with Diff Ordered. EDMS 13:48 Lipase Ordered. EDMS 13:48 Liver Profile Ordered. EDMS 13:49 Abdomen, Flat\E\Upright,PA Chest Ordered. EDMS 13:50 NOTHING BY MOUTH+DIET ordered. EDMS 13:50 ECG WITH READING ER PHYS+CARDIAG ordered. EDMS 13:58 Financial registration complete. lg 14:34 [facility] [place] Payment Agreement was scanned into [employer] and attached to record. lg 14:43 DIFFERENTIAL NO CHARGE Ordered. EDMS 14:43 PLATELET ESTIMATE Ordered. EDMS 14:45 CBC with Diff Reviewed. sd1 14:45 Abdomen, Flat\E\Upright,PA Chest Reviewed. sd1 15:02 Basic Metabolic Profile Reviewed. sd1 15:02 Liver Profile Reviewed. sd1 15:02 Amylase Reviewed. sd1 15:02 Lipase Reviewed. sd1 15:04 CT ABD & PELVIS: IV Contrast Only Ordered. EDMS 15:04 BED REQUEST+ADM ordered. EDMS 15:48 Ondansetron 4 mg IVP once ordered. sd1 15:56 CBC with Diff Reviewed. sd1 15:56 PLATELET ESTIMATE Reviewed. sd1 16:14 morphine 2 mg IVP every 5 minutes; Document pain score/vitals after each dose (Hold if sd1 SBP < 90mmHg) x5 ordered. 19:16 Admission / Observation Status ordered. EDMS 19:16 NPO DIET ordered. EDMS 19:59 Admission / Observation Status ordered. EDMS Administered Medications: 14:46 Drug: NS 0.9% 1000 ml [sodium chloride 0.9 % intravenous solution] Route: IV; Rate: 250 mk4 mL/hr; Site: right antecubital; 16:02 Drug: Ondansetron 4 mg [ondansetron HCl 2 mg/mL intravenous solution (2 mL)] Route: kc3 IVP; Site: left forearm; 16:25 Drug: morphine 2 mg [morphine 2 mg/mL intravenous cartridge (1 mL)] Route: IVP; Site: kc3 left forearm; 16:40 Follow up: Pain 2/10 Adult; Pt reports not wanting additional pain medication at this kc3 time. Will continue to monitor. See VS for follow-up. 19:25 Drug: morphine 2 mg [morphine 2 mg/mL intravenous cartridge (1 mL)] Route: IVP; Site: lf1 left forearm; Signatures: Dispatcher [employer] Imani Calderon MD MD sd1 Angelito Nickerson, Reg Reg lg Elizabeth Gonzales RN RN lf1 Nissa Romero RN RN sls1 Amita TamRN RN pml Theresa Bay RN RN mk4 Zaynab Verde RN kc3 The chart was reviewed and I authenticate all verbal orders and agree with the evaluation and treatment provided.Attachments: 14:34 [facility] Payment Agreement lg MTDD
--- NOTE | 2016-06-12 21:47 | EDDOCDS ---
Nurse's Notes [facility] Name: Patricia Sargent Age: 70 yrs Sex: Female : 1945 Arrival Date: 06/12/2016 Time: 13:34 Bed I7 / 29 Private MD: Orlando Waggoner Diagnosis: Other intestinal obstruction-metastatic colon CA Presentation: 06/12 13:39 Presenting complaint: Patient states: throwing up and cant tolerate PO. concerned for pml SBO - has hx of the same. had chemo on Sunday last week. has an adenocarcinoma of the small intestine. Adult Sepsis Screening: The patient does not have new or worsening altered mentation. Patient's respiratory rate is less than 22. Systolic blood pressure is greater than 100. Patient has a qSOFA score of 0- Negative Sepsis Screen. Suicide/Homicide risk assessment- the patient denies having any suicidal and/or homicidal ideations and does not present with any other emotional, behavioral or mental health complaints. Status: Patient is not a business services clerk or dependent. Transition of care: patient was not received from another setting of care. 13:39 Acuity: GEE Level 3 pml 13:39 Method Of Arrival: Walkin/Carried/Asstd pml Triage Assessment: 13:42 General: Appears in no apparent distress, comfortable. Pain: Location: abdomen Quality pml of pain is described as spasms. GI: Reports vomiting. Historical: - Allergies: no known allergies; - Home Meds: 1. 2 nausea medications 2. Colace 100 mg oral cap 1 cap once daily 3. senna 8.6 mg oral cap 2 caps once daily - PMHx: Cancer, Breast - Left; Cancer, Breast - Right; High Cholesterol; adenocarcinoma of small intestine; - PSHx: breast reconstruction surgery; Mastectomy- Bilateral; Bowel resection; - Social history: Smoking status: Patient states was never smoker of tobacco. No barriers to communication noted, The patient speaks fluent [place], Speaks appropriately for age. - Family history: Not pertinent. - : The pt / caregiver states he / she is not on anticoagulants. Home medication list is obtained from the patient. - Exposure Risk Screening:: None identified. Screenin:22 Screening information is obtained from the patient. Fall risk: No risks identified. mk4 Assistance ADL's: Requires assistance with meal preparation, this assistance is provided by family members. Abuse/DV Screen: The patient / caregiver reports he/she is: not in a situation that causes fear, pain or injury. Nutritional screening: No deficits noted. home support is adequate. 21:02 Advance Directives: Currently, there is a health care proxy, Dave Madsen. There is an lf1 active DNR order and the pt has a copy here at this time. Assessment: 13:50 General: Appears uncomfortable. Neurological: Level of Consciousness is awake, alert. mk4 Respiratory: Airway is patent Respiratory effort is even, unlabored, Respiratory pattern is regular. GI: Abdomen is non- distended other healing abdomen incision Bowel sounds present X 4 quads. Abd is tender to palpation X 4 quads. GI: Reports lower abdominal pain, upper abdominal pain, nausea, vomiting. Derm: Skin is intact, is healthy with good turgor, Skin is pale. 15:29 General: IV infiltrated post CT IV contrast given. Site swollen and tender to touch. kc3 Dr. Gould aware. Warm compresses placed. IV discontinued. . 16:00 GI: Reports nausea, vomiting, vomited a small amount greenish and clear fluid, PA aware mk4 and orders received, pt also states that her abd pain is returning , meds given IV infusing at 250/ml hr. 16:45 General: Appears Behavior is cooperative, pt states pain improved now , resting , mk4 Hospitalist in to see pt , family at bedside . 17:40 General: Appears in no apparent distress, comfortable, Behavior is cooperative. mk4 General:. Respiratory: Airway is patent Respiratory effort is even, unlabored, Respiratory pattern is regular. 18:40 General: Appears in no apparent distress, Behavior is cooperative. mk4 19:16 Adult Sepsis Screening: The patient does not have new or worsening altered mentation. lf1 Patient's respiratory rate is less than 22. Systolic blood pressure is greater than 100. Patient has a qSOFA score of 0- Negative Sepsis Screen. General: Appears comfortable, Behavior is cooperative. Pain: Location: abdomen Pain currently is 3 out of 10 on a pain scale. Quality of pain is described as crampy. Neurological: Level of Consciousness is awake, alert. EENT: No deficits noted. Respiratory: Respiratory effort is even, unlabored. GI: Denies nausea. Derm: Skin is normal. 20:27 General: Appears in no apparent distress, comfortable, Behavior is cooperative. Pain: lf1 Denies pain. Neurological: Level of Consciousness is awake, alert, Oriented to person, place, time. EENT: No deficits noted. Respiratory: Respiratory effort is even, unlabored. GI: Denies nausea. 21:02 General: Appears in no apparent distress, comfortable, Behavior is cooperative. Pain: lf1 Denies pain. Neurological: Level of Consciousness is awake, alert. Respiratory: Respiratory effort is even, unlabored. GI: Denies nausea. Derm: Skin is normal. Vital Signs: 06:30 BP 162 / 79; Pulse 87; lr2 13:36 BP 153 / 91 RA Sitting (auto/reg); Pulse 112; Resp 18; Temp 96.0(T); Pulse Ox 100% on jrd R/A; Weight 45.36 kg (R); Height 5 ft. 0 in. (152.40 cm); Pain 0/10; 16:40 Pain 2/10; kc3 19:16 BP 142 / 80; Pulse 85; Resp 18; Pulse Ox 97% on R/A; Pain 3/10; lf1 20:27 BP 145 / 86; Pulse 83; Resp 17; Temp 99.8(TE); Pulse Ox 99% on R/A; Pain 0/10; lf1 13:36 Body Mass Index 19.53 (45.36 kg, 152.40 cm) [facility] Vitals: 13:36 Log In Time: June 12, 2016 at 13:32. jrd 13:38 RN notified that patient meets Red Flag criteria. [facility] ED Course: 13:36 Patient visited by Sandor Perea PCA. jrd 13:36 Orlando Waggoner MD is Private Physician. jrd 13:36 Patient moved to Waiting jrd 13:38 Patient visited by Sandor Perea PCA. jrd 13:38 Patient moved to Pre RCE jrd 13:40 Triage Initiated pml 13:41 Imani Malone MD is Attending Physician. sd1 13:42 Patient visited by Imani Malone MD. sd1 13:42 Patient moved to I7 / 29 ml6 13:43 Patient visited by Amita Tam RN. pml 14:05 EKG done. (by ED staff). Reviewed by Imani Malone MD. jlf 14:06 Patient visited by Peggy Sainz PCA. jlf 14:07 Patient visited by Peggy Sainz PCA. jlf 14:27 Amylase Sent. mk4 14:27 Basic Metabolic Profile Sent. mk4 14:27 CBC with Diff Sent. mk4 14:27 Lipase Sent. mk4 14:27 Liver Profile Sent. mk4 14:30 Inserted saline lock: 20 gauge in right antecubital area and blood collected. mk4 14:34 [facility] Payment Agreement was scanned into [employer] and attached to record. lg 14:36 Abdomen, Flat\E\Upright,PA Chest Returned. EDMS 14:46 Patient visited by Theresa Bay RN. mk4 14:53 DIFFERENTIAL NO CHARGE Sent. kc3 15:29 Discontinued IV lock intact, bleeding controlled, pressure dressing applied, No kc3 redness/swelling at site. 15:34 Patient visited by Theresa Bay RN. mk4 16:01 Inserted saline lock: 20 gauge in left forearm The patient tolerated the procedure well.kc3 16:05 Patient visited by Theresa Bay RN. mk4 16:08 CT ABD & PELVIS: IV Contrast Only Returned. EDMS 16:37 Patient visited by Zaynab Verde RN. kc3 17:17 Patient visited by Theresa Bay RN. mk4 17:42 Herbie Silva is Hospitalizing Provider. sd1 19:16 Patient visited by Elizabeth Gonzales,RN. lf1 19:16 The patient / caregiver is instructed regarding the plan of care and ED course. Door lf1 closed. Noise minimized. Assisted with dressing. 19:22 No procedures done that require assistance. mk4 21:07 EKG-ADULT Returned. EDMS 21:32 Patient visited by Elizabeth Gonzales,RN. lf1 Administered Medications: 14:46 Drug: NS 0.9% 1000 ml [sodium chloride 0.9 % intravenous solution] Route: IV; Rate: 250 mk4 mL/hr; Site: right antecubital; 16:02 Drug: Ondansetron 4 mg [ondansetron HCl 2 mg/mL intravenous solution (2 mL)] Route: kc3 IVP; Site: left forearm; 16:25 Drug: morphine 2 mg [morphine 2 mg/mL intravenous cartridge (1 mL)] Route: IVP; Site: kc3 left forearm; 16:40 Follow up: Pain 2/10 Adult; Pt reports not wanting additional pain medication at this kc3 time. Will continue to monitor. See VS for follow-up. 19:25 Drug: morphine 2 mg [morphine 2 mg/mL intravenous cartridge (1 mL)] Route: IVP; Site: lf1 left forearm; Intake: Order Results: Lab Order: Amylase; SPEC'M 06/12/16 14:22 Test: AMYLASE; Value: 43; Range: 25-115; Units: U/L; Status: F Lab Order: Basic Metabolic Profile; SPEC'M 06/12/16 14:22 Test: GLUCOSE, FASTING; Value: 122; Range: 80-110; Abnormal: Above high normal; Units: MG/DL; Status: F Test: BLOOD UREA NITROGEN; Value: 24; Range: 7-18; Abnormal: Above high normal; Units: MG/DL; Status: F Test: CREATININE FOR GFR; Value: 0.53; Range: 0.55-1.02; Abnormal: Below low normal; Units: MG/DL; Status: F Test: GLOMERULAR FILTRATION RATE; Value: > 60.0; Range: >45; Status: F Test: SODIUM LEVEL; Value: 135; Range: 136-145; Abnormal: Below low normal; Units: MEQ/L; Status: F Test: POTASSIUM SERUM; Value: 3.9; Range: 3.5-5.1; Units: MEQ/L; Status: F Test: CHLORIDE LEVEL; Value: 97; Range: 98-107; Abnormal: Below low normal; Units: MEQ/L; Status: F Test: CARBON DIOXIDE LEVEL; Value: 27; Range: 21-32; Units: MEQ/L; Status: F Test: ANION GAP; Value: 11; Range: 8-16; Units: MEQ/L; Status: F Test: CALCIUM LEVEL; Value: 8.8; Range: 8.8-10.2; Units: MG/DL; Status: F Test Note: ; Units are mL/min/1.73 m2 Chronic Kidney Disease Staging per NKF: Stage I & II GFR >=60 Normal to Mildly Decreased Stage III GFR 30-59 Moderately Decreased Stage IV GFR 15-29 Severely Decreased Stage V GFR <15 Very Little GFR Left ESRD GFR <15 on [employer] Lab Order: CBC with Diff; SPEC'M 06/12/16 14:22 Test: WHITE BLOOD COUNT; Value: 11.3; Range: 4.0-10.0; Abnormal: Above high normal; Units: K/mm3; Status: F Test: RED BLOOD COUNT; Value: 4.32; Range: 4.00-5.40; Units: M/mm3; Status: F Test: HEMOGLOBIN; Value: 10.7; Range: 12.0-16.0; Abnormal: Below low normal; Units: g/dl; Status: F Test: HEMATOCRIT; Value: 33.2; Range: 36.0-47.0; Abnormal: Below low normal; Units: %; Status: F Test: MEAN CORPUSCULAR VOLUME; Value: 76.8; Range: 80.0-96.0; Abnormal: Below low normal; Units: fl; Status: F Test: MEAN CORPUSCULAR HEMOGLOBIN; Value: 24.9; Range: 27.0-33.0; Abnormal: Below low normal; Units: pg; Status: F Test: MEAN CORPUSCULAR HGB CONC; Value: 32.4; Range: 32.0-36.5; Units: g/dl; Status: F Test: RED CELL DISTRIBUTION WIDTH; Value: 16.9; Range: 11.5-14.5; Abnormal: Above high normal; Units: %; Status: F Test: PLATELET COUNT, AUTOMATED; Value: 320; Range: 150-450; Units: k/mm3; Status: F Test: NEUTROPHILS; Value: 85; Range: 35-75; Abnormal: Above high normal; Units: %; Status: F Test: BANDS; Value: 6; Range: < 11; Units: %; Status: F Test: LYMPHOCYTES; Value: 7; Range: 16-52; Abnormal: Below low normal; Units: %; Status: F Test: MONOCYTES; Value: 2; Range: 0-8; Units: %; Status: F Test: POIKILOCYTOSIS; Value: 1+; Status: F Test: ANISOCYTOSIS; Value: 1+; Status: F Test: MICROCYTOSIS; Value: 1+; Status: F Test: TOXIC GRANULATION; Value: 1+; Status: F Lab Order: Lipase; SPEC'M 06/12/16 14:22 Test: LIPASE; Value: 133; Range: 73-393; Units: U/L; Status: F Lab Order: Liver Profile; SPEC'M 06/12/16 14:22 Test: AST/SGOT; Value: 9; Range: 15-37; Abnormal: Below low normal; Units: U/L; Status: F Test: ALT/SGPT; Value: 13; Range: 12-78; Units: U/L; Status: F Test: ALKALINE PHOSPHATASE; Value: 194; Range: 45-117; Abnormal: Above high normal; Units: U/L; Status: F Test: BILIRUBIN,TOTAL; Value: 0.6; Range: 0.2-1.0; Units: MG/DL; Status: F Test: BILIRUBIN,DIRECT; Value: 0.2; Range: 0.0-0.2; Units: MG/DL; Status: F Test: TOTAL PROTEIN; Value: 6.3; Range: 6.4-8.2; Abnormal: Below low normal; Units: GM/DL; Status: F Test: ALBUMIN; Value: 2.9; Range: 3.2-5.2; Abnormal: Below low normal; Units: GM/DL; Status: F Test: ALBUMIN/GLOBULIN RATIO; Value: 0.85; Range: 1.00-1.93; Abnormal: Below low normal; Status: F Lab Order: PLATELET ESTIMATE; SPEC'M 06/12/16 14:22 Test: PLATELET ESTIMATE; Value: NORMAL; Range: NORMAL; Status: F Radiology Order: Abdomen, Flat\E\Upright,PA Chest Test: Abdomen, Flat\E\Upright,PA Chest REASON FOR EXAMINATION: Abdomen Pain; Clinical: Acute abdominal pain.; ; Technique: Upright view of the chest with supine and upright views of the; abdomen and pelvis.; ; Findings: Frontal upright view of the chest demonstrates no acute; cardiopulmonary process or free air below the diaphragm to suspect; pneumoperitoneum. Mafhrg-L-Suao identified with tip in the SVC. Upright view of; the abdomen demonstrates a few air-fluid levels which are nonspecific and; differential diagnosis would include early obstruction and enterocolitis.; Surgical changes appreciated with suture material in the left mid abdomen and; right lower quadrant. 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 Pain - Generalized, Nn-focal Exam; Clinical: Generalized abdominal pain.; ; Technique: Axial contrast enhanced images from the lung bases to the pubic; symphysis using 100 ml Isovue 370 intravenous contrast material with coronal and; sagittal re-formations.; ; Comparison: 05/04/2016, 04/23/2016; ; Findings:; Current examination demonstrates moderate ascites, diffuse mesenteric adenopathy; and suspected mesenteric infiltration along with irregular enhancing loops of; bowel as well as diffusely fluid-filled bowel and evidence for prior partial; resection and anastomoses in the right lower quadrant. Innumerable hepatic; hypodensities are now identified which were essentially non apparent on contrast; enhanced study dated 04/23/2016. The above findings are most suggestive of; malignancy and metastatic disease.; ; Spleen, pancreas, bilateral adrenal glands are normal. Kidneys demonstrate few; hypodensities suggesting cysts. Cholelithiasis noted. No free air. No discrete; drainable abscess. Vasculature without evidence for aneurysm. Musculoskeletal; structures demonstrate age-related degenerative changes. Lung bases are; relatively clear. Evidence for prior bilateral mastectomy.; ; Impression:; Above findings including ascites, mesenteric infiltration, mesenteric adenopathy,; hyperenhancing bowel wall, fluid filled bowel, and new innumerable hepatic; lesions likely represent underlying malignancy and metastatic disease.; ; ; Signed by; Shay Block MD 06/12/2016 03:44 P; Outcome: 17:42 Decision to Hospitalize by Provider. sd1 21:32 Discharge Assessment: Patient awake, alert and oriented x 3. No cognitive and/or lf1 functional deficits noted. Patient verbalized understanding of disposition instructions. Patient awake and alert. Oriented to person, place and time. Patient verbalized understanding of disposition instructions. patient administered narcotics - yes. Patient was admitted to the hospital or transferred to another facility. The following High Risk Discharge criteria are identified: None. Admitted to Med/Surg accompanied by tech, family with patient, via wheelchair, with chart. Condition: improved. CT Study completed. Property :Personal belongings accompany Pt. 21:47 Patient left the ED. lf1 Signatures: Dispatcher [employer] EDMS Imani Malone MD MD sd1 Angelito Nickerson, Reg Reg lg Elizabeth Gonzales,RN RN lf1 Omar Perry, RN RN ml6 Amita Tam,RN RN Theresa Aldrich RN RN mk4 Peggy Sainz, RN HOME CARE RN HOME CARE jlf Sandor Perea, RN HOME CARE RN HOME CARE jrd Zaynab Verde,RN RN [email or web address] Candy Trevino lr2 Corrections: (The following items were deleted from the chart) 19:19 19:16 General: Appears uncomfortable, mk4 4 19:19 16:00 GI: Reports nausea, vomiting, vomited a small amount greenish and clear fluid mk4 4 MTDD
[2016-06-12] MEDS ORDERED: PROCHLORPERAZINE 5 MG TAB (S0183) PO PRN (22:00)
[2016-06-12] MEDS: PANTOPRAZOLE 40MG INJ (PROTONIX) (C9113) IV SCH (22:02)
[2016-06-13] MEDS: ONDANSETRON 4MG/2ML VIAL (J2405) IV PRN ×4 (02:37→21:29)
[2016-06-13] MEDS: NS 1,000 ML IV SCH ×4 (03:05→23:01)
[2016-06-13] MEDS: MORPHINE 2 MG/ML 1ML SYRINGE IV PRN ×3 (05:31→19:30)
[2016-06-13 06:00] VITALS: BP 164/90
[2016-06-13] MEDS: ENOXAPARIN 30 MG/0.3 ML SYR (J1650) SC SCH (08:38)
[2016-06-13] MEDS: SENNA 8.6 MG TAB (SENOKOT) PO SCH (08:38)
[2016-06-13] MEDS: DOCUSATE SODIUM 100 MG CAP PO SCH (08:39)
[2016-06-13 10:00] VITALS: BP 137/84
[2016-06-13] MEDS ORDERED: BISACODYL 10 MG SUPP PR PRN (11:45)
[2016-06-13] MEDS: METOCLOPRAMIDE INJ 10MG/2ML VIAL (J2765) IV SCH ×2 (12:04→18:07)
--- NOTE | 2016-06-13 12:23 | IPNPDOC ---
Subjective Date Seen The patient was seen on 06/13/16. Subjective Chief Complaint/HPI The patient is a 70-year-old female admitted with a reason for visit of Abdominal Spasms/ Mestases To The Liver. General: Reports: Fatigue, Malaise, Denies: Chills, Night Sweats Constitutional: Denies: Chills, Fever Eyes: Denies: Pain, Vision change ENT: Denies: Ear Pain, Head Aches Skin: Denies: Lesions, Rash Pulmonary: Denies: Cough, Dyspnea Cardiovascular: Denies: Chest Pain, Palpitations Gastrointestinal: Reports: Nausea, Vomiting, Denies: Abdominal Pain, Diarrhea Hematologic: Denies: Bleeding Excessively, Bruising Objective Physical Examination General Exam: Positive: Alert, Cooperative, Mild Distress ENT Exam: Positive: Atraumatic, Mucous membr. moist/pink Chest Exam: Positive: Clear to auscultation, Normal air movement Heart Exam: Positive: Normal S1, Normal S2, Rate Normal Abdomen Exam: Positive: Other (Distended), Negative: Tenderness Extremity Exam: Negative: Swelling, Tenderness Assessment /Plan Plan/VTE VTE Prophylaxis Ordered?: Yes Plan 1. Intractable nausea/vomiting/abdominal pain 2/2 Underlying Malignancy s/p Recent Small Bowel Resection CT Scan of the Abdomen noted Surgery consulted in the ER--> No NG Tube for now, cont with IVF Hydration Will keep the patient NPO for now Olgaan Reglan for Nausea/vomiting Patient did have 1 bowel movement following administration of Dulcolax suppository Continue with conservative measures for now 2. Obstructing proximal jejunal mass status post resection Tissue biopsy notable for poorly differentiated, high-grade metastatic adenocarcinoma Follows with Dr. Pritchard of oncology, had first round of chemotherapy last week 3. COPD, stable 4. History of breast cancer status post mastectomy bilaterally DVT prophylaxis-Lovenox Disposition-I did discuss the patient's poor long-term prognosis with her extensively at the bedside today. The patient states that she would like to entertain the idea of hospice, and is considering comfort measures only. We will consult hospice, and follow-up with the patient regarding her decision. Continue IV fluid hydration, and bowel rest for now. VS, I&O, 24H, Fishbone Vital Signs/I&O Vital Signs Date Time Temp Pulse Resp B/P Pulse Ox O2 Delivery O2 Flow Rate FiO2 06/13/16 10:00 96.8 103 18 137/84 98 Room Air I&O- Last 24 Hours up to 6 AM 06/13/16 06:00 Intake Total 573 ml Output Total 450 ml Balance 123 ml Laboratory Data 24H LABS Laboratory Tests 2 06/12/16 14:22: Aspartate Amino Transf (AST/SGOT) 9L, Alanine Aminotransferase (ALT/SGPT) 13, Alkaline Phosphatase 194H, Total Bilirubin 0.6, Direct Bilirubin 0.2, Albumin 2.9L, Albumin/Globulin Ratio 0.85L, Amylase Level 43, Anion Gap 11, Anisocytosis 1+, Band Neutrophils 6, White Blood Count 11.3H, Red Blood Count 4.32, Hemoglobin 10.7L, Hematocrit 33.2L, Mean Corpuscular Volume 76.8L, Mean Corpuscular Hemoglobin 24.9L, Mean Corpuscular Hemoglobin Concent 32.4, Red Cell Distribution Width 16.9H, Platelet Count 320, Neutrophils (%) (Auto) , Lymphocytes (%) (Auto) , Monocytes (%) (Auto) , Eosinophils (%) (Auto) , Basophils (%) (Auto) , Neutrophils # (Auto) , Lymphocytes # (Auto) , Monocytes # (Auto) , Eosinophils # (Auto) , Basophils # (Auto) , Calcium Level 8.8, Glomerular Filtration Rate > 60.0, Large Unclassified Cells # , Large Unclassified Cells % , Lipase 133, Lymphocytes (Manual) 7L, Microcytosis 1+, Monocytes (Manual) 2, Neutrophils 85H, Platelet Estimate NORMAL, Poikilocytosis 1+, Total Protein 6.3L, Toxic Granulation 1+ CBC/BMP Laboratory Tests 06/12/16 14:22 Red Blood Count 4.32, Mean Corpuscular Volume 76.8 L, Mean Corpuscular Hemoglobin 24.9 L, Mean Corpuscular Hemoglobin Concent 32.4, Red Cell Distribution Width 16.9 H, Neutrophils (%) (Auto) , Lymphocytes (%) (Auto) , Monocytes (%) (Auto) , Eosinophils (%) (Auto) , Basophils (%) (Auto) , Neutrophils # (Auto) , Lymphocytes # (Auto) , Monocytes # (Auto) , Eosinophils # (Auto) , Basophils # (Auto) BETH PETERS MD Jun 13, 2016 12:23
[2016-06-13] MEDS: PANTOPRAZOLE 40MG INJ (PROTONIX) (C9113) IV SCH (20:37)
[2016-06-13 22:00] VITALS: BP 140/82
[2016-06-14] MEDS: METOCLOPRAMIDE INJ 10MG/2ML VIAL (J2765) IV SCH ×4 (00:03→17:40)
[2016-06-14] MEDS: MORPHINE 2 MG/ML 1ML SYRINGE IV PRN ×4 (00:39→14:51)
[2016-06-14] MEDS ORDERED: METOCLOPRAMIDE INJ 10MG/2ML VIAL (J2765) IV ONE (01:30)
[2016-06-14] MEDS: ONDANSETRON 4MG/2ML VIAL (J2405) IV PRN (04:11)
[2016-06-14 06:00] VITALS: BP 161/82
[2016-06-14 06:13] LABS: MEAN CORPUSCULAR HGB CONC 31.5 g/dl (32.0-36.5); MEAN CORPUSCULAR VOLUME 79.2 fl (80.0-96.0); WHITE BLOOD COUNT 6.5 K/mm3 (4.0-10.0)
[2016-06-14 06:28] LABS: ALBUMIN 2.2 GM/DL (3.2-5.2); ALBUMIN/GLOBULIN RATIO 0.67 (1.00-1.93); ALKALINE PHOSPHATASE 155 U/L (45-117); ALT/SGPT 10 U/L (12-78); ANION GAP 11 MEQ/L (8-16); AST/SGOT 9 U/L (15-37); BILIRUBIN,TOTAL 0.4 MG/DL (0.2-1.0); BLOOD UREA NITROGEN 23 MG/DL (7-18); CALCIUM LEVEL 7.6 MG/DL (8.8-10.2); CARBON DIOXIDE LEVEL 23 MEQ/L (21-32); CHLORIDE LEVEL 109 MEQ/L (98-107); CREATININE FOR GFR 0.52 MG/DL (0.55-1.02); GLOMERULAR FILTRATION RATE > 60.0 (>45); GLUCOSE, FASTING 107 MG/DL (80-110); POTASSIUM SERUM 3.2 MEQ/L (3.5-5.1); SODIUM LEVEL 143 MEQ/L (136-145); TOTAL PROTEIN 5.5 GM/DL (6.4-8.2)
[2016-06-14] MEDS: KCL 10MEQ IN 100ML SWI (KRUN) 10 MEQ in APPROPRIATE DILUENT 1 EA IV SCH ×8 (07:00→11:28)
[2016-06-14] MEDS: SENNA 8.6 MG TAB (SENOKOT) PO SCH (08:31)
[2016-06-14] MEDS: DOCUSATE SODIUM 100 MG CAP PO SCH (08:31)
[2016-06-14] MEDS: ENOXAPARIN 30 MG/0.3 ML SYR (J1650) SC SCH (08:31)
[2016-06-14] MEDS: NS 1,000 ML IV SCH ×2 (12:25→14:51)
[2016-06-14 14:00] VITALS: BP 150/72
--- NOTE | 2016-06-14 14:06 | IPNPDOC ---
Subjective Date Seen The patient was seen on 06/14/16. Subjective Chief Complaint/HPI The patient is a 70-year-old female admitted with a reason for visit of Abdominal Spasms/ Mestases To The Liver. General: Reports: Fatigue, Malaise, Denies: Chills, Night Sweats Constitutional: Denies: Chills, Fever Eyes: Denies: Pain, Vision change ENT: Denies: Ear Pain, Head Aches Skin: Denies: Lesions, Rash Pulmonary: Denies: Cough, Dyspnea Cardiovascular: Denies: Chest Pain, Palpitations Gastrointestinal: Reports: Nausea, Denies: Abdominal Pain, Vomiting Hematologic: Denies: Bleeding Excessively, Bruising Objective Physical Examination General Exam: Positive: Alert, Cooperative, Mild Distress ENT Exam: Positive: Atraumatic, Mucous membr. moist/pink Chest Exam: Positive: Clear to auscultation, Normal air movement Heart Exam: Positive: Normal S1, Normal S2, Rate Normal Abdomen Exam: Positive: Other (Distended), Negative: Tenderness Extremity Exam: Negative: Swelling, Tenderness Assessment /Plan Plan/VTE VTE Prophylaxis Ordered?: Yes Plan 1. Intractable nausea/vomiting 2/2 Distal Colon Obstruction, with Hx of Underlying Malignancy s/p Recent Small Bowel Resection CT Scan of the Abdomen noted Dr. Amaya of Surgery consulted-->Patient is not a candidate for Surgery given her clinical condition, Hospice recommended Will keep the patient NPO Continue IV fluid hydration Olgaan Reglan for Nausea/vomiting I did have an extensive conversation with the patient regarding hospice yesterday evening. The patient states that she would like to talk to hospice about possible house of hospice placement. In addition, the patient has requested a consultation for Dr. Pritchard, her medical oncologist. I have spoken to Dr. Pritchard, and discussed the most recent clinical events regarding to Mrs. Sargent, and she will see the patient in consultation. Continue with conservative measures for now 2. Obstructing proximal jejunal mass status post resection Tissue biopsy notable for poorly differentiated, high-grade metastatic adenocarcinoma Follows with Dr. Pritchard of oncology, had first round of chemotherapy last week 3. COPD, stable 4. History of breast cancer status post mastectomy bilaterally DVT prophylaxis-Lovenox Disposition-at this time, the patient is considering hospice, and a consult has been placed for delineation of further options. I reached out to Dr. Pritchard of oncology who follows the patient for chemotherapy. She will see the patient in consultation. VS, I&O, 24H, [place] Vital Signs/I&O Vital Signs Date Time Temp Pulse Resp B/P Pulse Ox O2 Delivery O2 Flow Rate FiO2 06/14/16 10:20 18 Room Air 06/14/16 06:00 96.8 84 161/82 96 I&O- Last 24 Hours up to 6 AM 06/14/16 06:00 Intake Total 2460 ml Output Total 1500 ml Balance 960 ml Laboratory Data 24H LABS Laboratory Tests 2 06/14/16 05:25: Blood Urea Nitrogen 23H, Creatinine 0.52L, Sodium Level 143#, Potassium Level 3.2L, Chloride Level 109H, Carbon Dioxide Level 23, Calcium Level 7.6L, Aspartate Amino Transf (AST/SGOT) 9L, Alanine Aminotransferase (ALT/SGPT) 10L, Alkaline Phosphatase 155H, Total Bilirubin 0.4, Total Protein 5.5L, Albumin 2.2# L, Albumin/Globulin Ratio 0.67L, Anion Gap 11, Glomerular Filtration Rate > 60.0 , Magnesium Level 2.0 CBC/BMP Laboratory Tests 06/14/16 05:25 Calcium Level 7.6 L, Aspartate Amino Transf (AST/SGOT) 9 L, Alanine Aminotransferase (ALT/SGPT) 10 L, Alkaline Phosphatase 155 H, Total Bilirubin 0.4, Total Protein 5.5 L, Albumin 2.2 #L, Red Blood Count 3.86 L, Mean Corpuscular Volume 79.2 L, Mean Corpuscular Hemoglobin 25.0 L, Mean Corpuscular Hemoglobin Concent 31.5 L, Red Cell Distribution Width 17.0 H BETH PETERS MD Jun 14, 2016 14:06
--- NOTE | 2016-06-14 19:18 | CR ---
DATE OF CONSULTATION: 06/14/2016 REASON FOR REFERRAL: Small bowel adenocarcinoma. HISTORY OF PRESENT ILLNESS: Mrs. 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 She was started on chemotherapy a week ago, and is presently admitted for abdominal pain with imaging study showing a large bowel obstruction. I was consulted for discussion and prognosis. Mrs. Sargent expresses feeling better since admission. The patient has no abdominal pain. She was able to move her bowels two days ago, but she has not been taking anything as she has nausea and vomiting with oral intake. PHYSICAL EXAMINATION: On physical exam, she was lying comfortably on the bed, not in distress. IMPRESSION AND PLAN: I discussed with Mrs. Sargent that she will not be able to continue with chemotherapy as long as she has bowel obstruction, as she will not be getting any nutritional support, and chemotherapy will complicate her problems rather than solve them. At this point, she has diffuse metastatic disease is her peritoneum, and she has new liver metastases suggestive of a very aggressive small bowel adenocarcinoma. Mrs. Sargent has decided to go on hospice care. Thank you for informing me of her admission.
[2016-06-14] MEDS: PANTOPRAZOLE 40MG INJ (PROTONIX) (C9113) IV SCH (21:26)
[2016-06-14 22:00] VITALS: BP 142/78
--- NOTE | 2016-06-14 22:48 | EDDOCDS ---
Physician Documentation [facility] Name: Patricia Sargent Age: 70 yrs Sex: Female : 1945 Arrival Date: 06/12/2016 Time: 13:34 Bed I7 / 29 Private MD: Orlando Waggoner Disposition: 06/12/16 17:42 Hospitalization ordered by Herbie Silva for Inpatient Admission. Preliminary diagnosis is Other intestinal obstruction - metastatic colon CA. - Bed requested for 4 [place]. - Status is Inpatient Admission. lf1 - Condition is Stable. - Problem is new. - Symptoms have improved. Historical: - Allergies: no known allergies; - Home Meds: 1. 2 nausea medications 2. Colace 100 mg oral cap 1 cap once daily 3. senna 8.6 mg oral cap 2 caps once daily - PMHx: Cancer, Breast - Left; Cancer, Breast - Right; High Cholesterol; adenocarcinoma of small intestine; - PSHx: breast reconstruction surgery; Mastectomy- Bilateral; Bowel resection; - Social history: Smoking status: Patient states was never smoker of tobacco. No barriers to communication noted, The patient speaks fluent Polish, Speaks appropriately for age. - Family history: Not pertinent. - : The pt / caregiver states he / she is not on anticoagulants. Home medication list is obtained from the patient. - Exposure Risk Screening:: None identified. Vital Signs: 06/12 06:30 BP 162 / 79; Pulse 87; lr2 13:36 BP 153 / 91 RA Sitting (auto/reg); Pulse 112; Resp 18; Temp 96.0(T); Pulse Ox 100% on jrd R/A; Weight 45.36 kg / 100 lbs (R); Height 5 ft. 0 in. (152.40 cm); Pain 0/10; 16:40 Pain 2/10; kc3 19:16 BP 142 / 80; Pulse 85; Resp 18; Pulse Ox 97% on R/A; Pain 3/10; lf1 20:27 BP 145 / 86; Pulse 83; Resp 17; Temp 99.8(TE); Pulse Ox 99% on R/A; Pain 0/10; lf1 13:36 Body Mass Index 19.53 (45.36 kg, 152.40 cm) jrd MDM: 13:48 NS 0.9% 1000 ml IV at 250 mL/hr continuous ordered. sd1 13:48 Undress patient appropriately for examination ordered. sd1 13:48 Amylase Ordered. EDMS 13:48 Basic Metabolic Profile Ordered. EDMS 13:48 CBC with Diff Ordered. EDMS 13:48 Lipase Ordered. EDMS 13:48 Liver Profile Ordered. EDMS 13:49 Abdomen, Flat\E\Upright,PA Chest Ordered. EDMS 13:50 NOTHING BY MOUTH+DIET ordered. EDMS 13:50 ECG WITH READING ER PHYS+CARDIAG ordered. EDMS 13:58 Financial registration complete. lg 14:34 [facility] Payment Agreement was scanned into [employer] and attached to record. lg 14:43 DIFFERENTIAL NO CHARGE Ordered. EDMS 14:43 PLATELET ESTIMATE Ordered. EDMS 14:45 CBC with Diff Reviewed. sd1 14:45 Abdomen, Flat\E\Upright,PA Chest Reviewed. sd1 15:02 Basic Metabolic Profile Reviewed. sd1 15:02 Liver Profile Reviewed. sd1 15:02 Amylase Reviewed. sd1 15:02 Lipase Reviewed. sd1 15:04 CT ABD & PELVIS: IV Contrast Only Ordered. EDMS 15:04 BED REQUEST+ADM ordered. EDMS 15:48 Ondansetron 4 mg IVP once ordered. sd1 15:56 CBC with Diff Reviewed. sd1 15:56 PLATELET ESTIMATE Reviewed. sd1 16:14 morphine 2 mg IVP every 5 minutes; Document pain score/vitals after each dose (Hold if sd1 SBP < 90mmHg) x5 ordered. 19:16 Admission / Observation Status ordered. EDMS 19:16 NPO DIET ordered. EDMS 19:59 Admission / Observation Status ordered. EDMS 06/13 10:25 T-Sheet-- Draft Copy was scanned into [employer] and attached to record. gb 10:25 ECG/EKG was scanned into [employer] and attached to record. gb 10:26 Radiology Report was scanned into [employer] and attached to record. gb Administered Medications: 06/12 14:46 Drug: NS 0.9% 1000 ml [sodium chloride 0.9 % intravenous solution] Route: IV; Rate: 250 mk4 mL/hr; Site: right antecubital; 16:02 Drug: Ondansetron 4 mg [ondansetron HCl 2 mg/mL intravenous solution (2 mL)] Route: kc3 IVP; Site: left forearm; 16:25 Drug: morphine 2 mg [morphine 2 mg/mL intravenous cartridge (1 mL)] Route: IVP; Site: kc3 left forearm; 16:40 Follow up: Pain 2/10 Adult; Pt reports not wanting additional pain medication at this kc3 time. Will continue to monitor. See VS for follow-up. 19:25 Drug: morphine 2 mg [morphine 2 mg/mL intravenous cartridge (1 mL)] Route: IVP; Site: lf1 left forearm; Signatures: Dispatcher [employer] EDImani Holley MD MD sd1 Sherine Alvarez, Reg Reg gb Angelito Nickerson, Reg Reg lg Elizabeth GonzalesRN RN lf1 Nissa Romero RN RN sls1 Amita TamRN RN pml Theresa Bay RN RN mk4 Zaynab Verde RN kc3 The chart was reviewed and I authenticate all verbal orders and agree with the evaluation and treatment provided.Attachments: 14:34 [facility] [place] 06/13 10:25 T-Sheet-- Draft Copy gb 10:25 ECG/EKG gb Chart Complete MTDD
--- NOTE | 2016-06-14 22:48 | EDDOCDS ---
Nurse's Notes [facility] Name: Patricia Sargent Age: 70 yrs Sex: Female : 1945 Arrival Date: 06/12/2016 Time: 13:34 Bed I7 / 29 Private MD: Orlando Waggoner Diagnosis: Other intestinal obstruction-metastatic colon CA Presentation: 06/12 13:39 Presenting complaint: Patient states: throwing up and cant tolerate PO. concerned for pml SBO - has hx of the same. had chemo on Sunday last week. has an adenocarcinoma of the small intestine. Adult Sepsis Screening: The patient does not have new or worsening altered mentation. Patient's respiratory rate is less than 22. Systolic blood pressure is greater than 100. Patient has a qSOFA score of 0- Negative Sepsis Screen. Suicide/Homicide risk assessment- the patient denies having any suicidal and/or homicidal ideations and does not present with any other emotional, behavioral or mental health complaints. Status: Patient is not a service tester or dependent. Transition of care: patient was not received from another setting of care. 13:39 Acuity: GEE Level 3 pml 13:39 Method Of Arrival: Walkin/Carried/Asstd pml Triage Assessment: 13:42 General: Appears in no apparent distress, comfortable. Pain: Location: abdomen Quality pml of pain is described as spasms. GI: Reports vomiting. Historical: - Allergies: no known allergies; - Home Meds: 1. 2 nausea medications 2. Colace 100 mg oral cap 1 cap once daily 3. senna 8.6 mg oral cap 2 caps once daily - PMHx: Cancer, Breast - Left; Cancer, Breast - Right; High Cholesterol; adenocarcinoma of small intestine; - PSHx: breast reconstruction surgery; Mastectomy- Bilateral; Bowel resection; - Social history: Smoking status: Patient states was never smoker of tobacco. No barriers to communication noted, The patient speaks fluent [place], Speaks appropriately for age. - Family history: Not pertinent. - : The pt / caregiver states he / she is not on anticoagulants. Home medication list is obtained from the patient. - Exposure Risk Screening:: None identified. Screenin:22 Screening information is obtained from the patient. Fall risk: No risks identified. mk4 Assistance ADL's: Requires assistance with meal preparation, this assistance is provided by family members. Abuse/DV Screen: The patient / caregiver reports he/she is: not in a situation that causes fear, pain or injury. Nutritional screening: No deficits noted. home support is adequate. 21:02 Advance Directives: Currently, there is a health care proxy, Dave Madsen. There is an lf1 active DNR order and the pt has a copy here at this time. Assessment: 13:50 General: Appears uncomfortable. Neurological: Level of Consciousness is awake, alert. mk4 Respiratory: Airway is patent Respiratory effort is even, unlabored, Respiratory pattern is regular. GI: Abdomen is non- distended other healing abdomen incision Bowel sounds present X 4 quads. Abd is tender to palpation X 4 quads. GI: Reports lower abdominal pain, upper abdominal pain, nausea, vomiting. Derm: Skin is intact, is healthy with good turgor, Skin is pale. 15:29 General: IV infiltrated post CT IV contrast given. Site swollen and tender to touch. kc3 Dr. Gould aware. Warm compresses placed. IV discontinued. . 16:00 GI: Reports nausea, vomiting, vomited a small amount greenish and clear fluid, PA aware mk4 and orders received, pt also states that her abd pain is returning , meds given IV infusing at 250/ml hr. 16:45 General: Appears Behavior is cooperative, pt states pain improved now , resting , mk4 Hospitalist in to see pt , family at bedside . 17:40 General: Appears in no apparent distress, comfortable, Behavior is cooperative. mk4 General:. Respiratory: Airway is patent Respiratory effort is even, unlabored, Respiratory pattern is regular. 18:40 General: Appears in no apparent distress, Behavior is cooperative. mk4 19:16 Adult Sepsis Screening: The patient does not have new or worsening altered mentation. lf1 Patient's respiratory rate is less than 22. Systolic blood pressure is greater than 100. Patient has a qSOFA score of 0- Negative Sepsis Screen. General: Appears comfortable, Behavior is cooperative. Pain: Location: abdomen Pain currently is 3 out of 10 on a pain scale. Quality of pain is described as crampy. Neurological: Level of Consciousness is awake, alert. EENT: No deficits noted. Respiratory: Respiratory effort is even, unlabored. GI: Denies nausea. Derm: Skin is normal. 20:27 General: Appears in no apparent distress, comfortable, Behavior is cooperative. Pain: lf1 Denies pain. Neurological: Level of Consciousness is awake, alert, Oriented to person, place, time. EENT: No deficits noted. Respiratory: Respiratory effort is even, unlabored. GI: Denies nausea. 21:02 General: Appears in no apparent distress, comfortable, Behavior is cooperative. Pain: lf1 Denies pain. Neurological: Level of Consciousness is awake, alert. Respiratory: Respiratory effort is even, unlabored. GI: Denies nausea. Derm: Skin is normal. Vital Signs: 06:30 BP 162 / 79; Pulse 87; lr2 13:36 BP 153 / 91 RA Sitting (auto/reg); Pulse 112; Resp 18; Temp 96.0(T); Pulse Ox 100% on jrd R/A; Weight 45.36 kg (R); Height 5 ft. 0 in. (152.40 cm); Pain 0/10; 16:40 Pain 2/10; kc3 19:16 BP 142 / 80; Pulse 85; Resp 18; Pulse Ox 97% on R/A; Pain 3/10; lf1 20:27 BP 145 / 86; Pulse 83; Resp 17; Temp 99.8(TE); Pulse Ox 99% on R/A; Pain 0/10; lf1 13:36 Body Mass Index 19.53 (45.36 kg, 152.40 cm) [facility] Vitals: 13:36 Log In Time: June 12, 2016 at 13:32. jrd 13:38 RN notified that patient meets Red Flag criteria. [facility] ED Course: 13:36 Patient visited by Sandor Perea PCA. jrd 13:36 Orlando Waggoner MD is Private Physician. jrd 13:36 Patient moved to Waiting jrd 13:38 Patient visited by Sandor Perea PCA. jrd 13:38 Patient moved to Pre RCE jrd 13:40 Triage Initiated pml 13:41 Imani Malone MD is Attending Physician. sd1 13:42 Patient visited by Imani Malone MD. sd1 13:42 Patient moved to I7 / 29 ml6 13:43 Patient visited by Amita Tam RN. pml 14:05 EKG done. (by ED staff). Reviewed by Imani Malone MD. jlf 14:06 Patient visited by Peggy Sainz PCA. jlf 14:07 Patient visited by Peggy Sainz PCA. jlf 14:27 Amylase Sent. mk4 14:27 Basic Metabolic Profile Sent. mk4 14:27 CBC with Diff Sent. mk4 14:27 Lipase Sent. mk4 14:27 Liver Profile Sent. mk4 14:30 Inserted saline lock: 20 gauge in right antecubital area and blood collected. mk4 14:34 [facility] Payment Agreement was scanned into [employer] and attached to record. lg 14:36 Abdomen, Flat\E\Upright,PA Chest Returned. EDMS 14:46 Patient visited by Theresa Bay RN. mk4 14:53 DIFFERENTIAL NO CHARGE Sent. kc3 15:29 Discontinued IV lock intact, bleeding controlled, pressure dressing applied, No kc3 redness/swelling at site. 15:34 Patient visited by Theresa Bay RN. mk4 16:01 Inserted saline lock: 20 gauge in left forearm The patient tolerated the procedure well.kc3 16:05 Patient visited by Theresa Bay RN. mk4 16:08 CT ABD & PELVIS: IV Contrast Only Returned. EDMS 16:37 Patient visited by Zaynab Verde,EMI. kc3 17:17 Patient visited by Theresa Bay RN. mk4 17:42 Herbie Silva is Hospitalizing Provider. sd1 19:16 Patient visited by Elizabeth Gonzales,RN. lf1 19:16 The patient / caregiver is instructed regarding the plan of care and ED course. Door lf1 closed. Noise minimized. Assisted with dressing. 19:22 No procedures done that require assistance. mk4 21:07 EKG-ADULT Returned. EDMS 21:32 Patient visited by Elizabeth Gonzales,RN. lf1 06/13 10:25 T-Sheet-- Draft Copy was scanned into [employer] and attached to record. gb 10:25 ECG/EKG was scanned into [employer] and attached to record. gb 10:26 Radiology Report was scanned into [employer] and attached to record. gb Administered Medications: 06/12 14:46 Drug: NS 0.9% 1000 ml [sodium chloride 0.9 % intravenous solution] Route: IV; Rate: 250 mk4 mL/hr; Site: right antecubital; 16:02 Drug: Ondansetron 4 mg [ondansetron HCl 2 mg/mL intravenous solution (2 mL)] Route: kc3 IVP; Site: left forearm; 16:25 Drug: morphine 2 mg [morphine 2 mg/mL intravenous cartridge (1 mL)] Route: IVP; Site: kc3 left forearm; 16:40 Follow up: Pain 2/10 Adult; Pt reports not wanting additional pain medication at this kc3 time. Will continue to monitor. See VS for follow-up. 19:25 Drug: morphine 2 mg [morphine 2 mg/mL intravenous cartridge (1 mL)] Route: IVP; Site: lf1 left forearm; Intake: Order Results: Lab Order: Amylase; SPEC'M 06/12/16 14:22 Test: AMYLASE; Value: 43; Range: 25-115; Units: U/L; Status: F Lab Order: Basic Metabolic Profile; SPEC'M 06/12/16 14:22 Test: GLUCOSE, FASTING; Value: 122; Range: 80-110; Abnormal: Above high normal; Units: MG/DL; Status: F Test: BLOOD UREA NITROGEN; Value: 24; Range: 7-18; Abnormal: Above high normal; Units: MG/DL; Status: F Test: CREATININE FOR GFR; Value: 0.53; Range: 0.55-1.02; Abnormal: Below low normal; Units: MG/DL; Status: F Test: GLOMERULAR FILTRATION RATE; Value: > 60.0; Range: >45; Status: F Test: SODIUM LEVEL; Value: 135; Range: 136-145; Abnormal: Below low normal; Units: MEQ/L; Status: F Test: POTASSIUM SERUM; Value: 3.9; Range: 3.5-5.1; Units: MEQ/L; Status: F Test: CHLORIDE LEVEL; Value: 97; Range: 98-107; Abnormal: Below low normal; Units: MEQ/L; Status: F Test: CARBON DIOXIDE LEVEL; Value: 27; Range: 21-32; Units: MEQ/L; Status: F Test: ANION GAP; Value: 11; Range: 8-16; Units: MEQ/L; Status: F Test: CALCIUM LEVEL; Value: 8.8; Range: 8.8-10.2; Units: MG/DL; Status: F Test Note: ; Units are mL/min/1.73 m2 Chronic Kidney Disease Staging per NKF: Stage I & II GFR >=60 Normal to Mildly Decreased Stage III GFR 30-59 Moderately Decreased Stage IV GFR 15-29 Severely Decreased Stage V GFR <15 Very Little GFR Left ESRD GFR <15 on [facility] Lab Order: CBC with Diff; PENG'M 06/12/16 14:22 Test: WHITE BLOOD COUNT; Value: 11.3; Range: 4.0-10.0; Abnormal: Above high normal; Units: K/mm3; Status: F Test: RED BLOOD COUNT; Value: 4.32; Range: 4.00-5.40; Units: M/mm3; Status: F Test: HEMOGLOBIN; Value: 10.7; Range: 12.0-16.0; Abnormal: Below low normal; Units: g/dl; Status: F Test: HEMATOCRIT; Value: 33.2; Range: 36.0-47.0; Abnormal: Below low normal; Units: %; Status: F Test: MEAN CORPUSCULAR VOLUME; Value: 76.8; Range: 80.0-96.0; Abnormal: Below low normal; Units: fl; Status: F Test: MEAN CORPUSCULAR HEMOGLOBIN; Value: 24.9; Range: 27.0-33.0; Abnormal: Below low normal; Units: pg; Status: F Test: MEAN CORPUSCULAR HGB CONC; Value: 32.4; Range: 32.0-36.5; Units: g/dl; Status: F Test: RED CELL DISTRIBUTION WIDTH; Value: 16.9; Range: 11.5-14.5; Abnormal: Above high normal; Units: %; Status: F Test: PLATELET COUNT, AUTOMATED; Value: 320; Range: 150-450; Units: k/mm3; Status: F Test: NEUTROPHILS; Value: 85; Range: 35-75; Abnormal: Above high normal; Units: %; Status: F Test: BANDS; Value: 6; Range: < 11; Units: %; Status: F Test: LYMPHOCYTES; Value: 7; Range: 16-52; Abnormal: Below low normal; Units: %; Status: F Test: MONOCYTES; Value: 2; Range: 0-8; Units: %; Status: F Test: POIKILOCYTOSIS; Value: 1+; Status: F Test: ANISOCYTOSIS; Value: 1+; Status: F Test: MICROCYTOSIS; Value: 1+; Status: F Test: TOXIC GRANULATION; Value: 1+; Status: F Lab Order: Lipase; [facility] 06/12/16 14:22 Test: LIPASE; Value: 133; Range: 73-393; Units: U/L; Status: F Lab Order: Liver Profile; [facility] 06/12/16 14:22 Test: AST/SGOT; Value: 9; Range: 15-37; Abnormal: Below low normal; Units: U/L; Status: F Test: ALT/SGPT; Value: 13; Range: 12-78; Units: U/L; Status: F Test: ALKALINE PHOSPHATASE; Value: 194; Range: 45-117; Abnormal: Above high normal; Units: U/L; Status: F Test: BILIRUBIN,TOTAL; Value: 0.6; Range: 0.2-1.0; Units: MG/DL; Status: F Test: BILIRUBIN,DIRECT; Value: 0.2; Range: 0.0-0.2; Units: MG/DL; Status: F Test: TOTAL PROTEIN; Value: 6.3; Range: 6.4-8.2; Abnormal: Below low normal; Units: GM/DL; Status: F Test: ALBUMIN; Value: 2.9; Range: 3.2-5.2; Abnormal: Below low normal; Units: GM/DL; Status: F Test: ALBUMIN/GLOBULIN RATIO; Value: 0.85; Range: 1.00-1.93; Abnormal: Below low normal; Status: F Lab Order: PLATELET ESTIMATE; [facility] 06/12/16 14:22 Test: PLATELET ESTIMATE; Value: NORMAL; Range: NORMAL; Status: F Radiology Order: Abdomen, Flat\E\Upright,PA Chest Test: Abdomen, Flat\E\Upright,PA Chest REASON FOR EXAMINATION: Abdomen Pain; Clinical: Acute abdominal pain.; ; Technique: Upright view of the chest with supine and upright views of the; abdomen and pelvis.; ; Findings: Frontal upright view of the chest demonstrates no acute; cardiopulmonary process or free air below the diaphragm to suspect; pneumoperitoneum. [id number] identified with tip in the SVC. Upright view of; the abdomen demonstrates a few air-fluid levels which are nonspecific and; differential diagnosis would include early obstruction and enterocolitis.; Surgical changes appreciated with suture material in the left mid abdomen and; right lower quadrant. 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 Pain - Generalized, Nn-focal Exam; Clinical: Generalized abdominal pain.; ; Technique: Axial contrast enhanced images from the lung bases to the pubic; symphysis using 100 ml Isovue 370 intravenous contrast material with coronal and; sagittal re-formations.; ; Comparison: 05/04/2016, 04/23/2016; ; Findings:; Current examination demonstrates moderate ascites, diffuse mesenteric adenopathy; and suspected mesenteric infiltration along with irregular enhancing loops of; bowel as well as diffusely fluid-filled bowel and evidence for prior partial; resection and anastomoses in the right lower quadrant. Innumerable hepatic; hypodensities are now identified which were essentially non apparent on contrast; enhanced study dated 04/23/2016. The above findings are most suggestive of; malignancy and metastatic disease.; ; Spleen, pancreas, bilateral adrenal glands are normal. Kidneys demonstrate few; hypodensities suggesting cysts. Cholelithiasis noted. No free air. No discrete; drainable abscess. Vasculature without evidence for aneurysm. Musculoskeletal; structures demonstrate age-related degenerative changes. Lung bases are; relatively clear. Evidence for prior bilateral mastectomy.; ; Impression:; Above findings including ascites, mesenteric infiltration, mesenteric adenopathy,; hyperenhancing bowel wall, fluid filled bowel, and new innumerable hepatic; lesions likely represent underlying malignancy and metastatic disease.; ; ; Signed by; Shay Block MD 06/12/2016 03:44 P; Outcome: 17:42 Decision to Hospitalize by Provider. sd1 21:32 Discharge Assessment: Patient awake, alert and oriented x 3. No cognitive and/or lf1 functional deficits noted. Patient verbalized understanding of disposition instructions. Patient awake and alert. Oriented to person, place and time. Patient verbalized understanding of disposition instructions. patient administered narcotics - yes. Patient was admitted to the hospital or transferred to another facility. The following High Risk Discharge criteria are identified: None. Admitted to Med/Surg accompanied by tech, family with patient, via wheelchair, with chart. Condition: improved. CT Study completed. Property :Personal belongings accompany Pt. 21:47 Patient left the ED. lf1 Signatures: Dispatcher [employer] EDMS Imani Malone MD MD sd1 Sherine Alvarez, Reg Reg gb Angelito Nickerson, Reg Reg lg Elizabeth GonzalesRN RN lf1 Omar Perry, RN RN [email or web address] Amita TamRN Theresa Walters RN RN mk4 Peggy Sainz, CATEGORY CONSULTANT CATEGORY CONSULTANT jlf Sandor Perea, CATEGORY CONSULTANT CATEGORY CONSULTANT jrd Zaynab Verde,RN RN [email or web address] Candy Trevino2 Corrections: (The following items were deleted from the chart) 19:19 19:16 General: Appears uncomfortable, 4 mk4 19:19 16:00 GI: Reports nausea, vomiting, vomited a small amount greenish and clear fluid 4 4 Chart Complete MTDD
--- NOTE | 2016-06-14 22:48 | EDDOCDS ---
Physician Documentation [facility] Name: Patricia Sargent Age: 70 yrs Sex: Female : 1945 Arrival Date: 06/12/2016 Time: 13:34 Bed I7 / 29 Private MD: Orlando Waggoner Disposition: 06/12/16 17:42 Hospitalization ordered by Herbie Silva for Inpatient Admission. Preliminary diagnosis is Other intestinal obstruction - metastatic colon CA. - Bed requested for 4 [facility]. - Status is Inpatient Admission. lf1 - Condition is Stable. - Problem is new. - Symptoms have improved. Historical: - Allergies: no known allergies; - Home Meds: 1. 2 nausea medications 2. Colace 100 mg oral cap 1 cap once daily 3. senna 8.6 mg oral cap 2 caps once daily - PMHx: Cancer, Breast - Left; Cancer, Breast - Right; High Cholesterol; adenocarcinoma of small intestine; - PSHx: breast reconstruction surgery; Mastectomy- Bilateral; Bowel resection; - Social history: Smoking status: Patient states was never smoker of tobacco. No barriers to communication noted, The patient speaks fluent Amharic, Speaks appropriately for age. - Family history: Not pertinent. - : The pt / caregiver states he / she is not on anticoagulants. Home medication list is obtained from the patient. - Exposure Risk Screening:: None identified. Vital Signs: 06/12 06:30 BP 162 / 79; Pulse 87; lr2 13:36 BP 153 / 91 RA Sitting (auto/reg); Pulse 112; Resp 18; Temp 96.0(T); Pulse Ox 100% on jrd R/A; Weight 45.36 kg / 100 lbs (R); Height 5 ft. 0 in. (152.40 cm); Pain 0/10; 16:40 Pain 2/10; kc3 19:16 BP 142 / 80; Pulse 85; Resp 18; Pulse Ox 97% on R/A; Pain 3/10; lf1 20:27 BP 145 / 86; Pulse 83; Resp 17; Temp 99.8(TE); Pulse Ox 99% on R/A; Pain 0/10; lf1 13:36 Body Mass Index 19.53 (45.36 kg, 152.40 cm) jrd MDM: 13:48 NS 0.9% 1000 ml IV at 250 mL/hr continuous ordered. sd1 13:48 Undress patient appropriately for examination ordered. sd1 13:48 Amylase Ordered. EDMS 13:48 Basic Metabolic Profile Ordered. EDMS 13:48 CBC with Diff Ordered. EDMS 13:48 Lipase Ordered. EDMS 13:48 Liver Profile Ordered. EDMS 13:49 Abdomen, Flat\E\Upright,PA Chest Ordered. EDMS 13:50 NOTHING BY MOUTH+DIET ordered. EDMS 13:50 ECG WITH READING ER PHYS+CARDIAG ordered. EDMS 13:58 Financial registration complete. lg 14:34 [facility] Payment Agreement was scanned into [employer] and attached to record. lg 14:43 DIFFERENTIAL NO CHARGE Ordered. EDMS 14:43 PLATELET ESTIMATE Ordered. EDMS 14:45 CBC with Diff Reviewed. sd1 14:45 Abdomen, Flat\E\Upright,PA Chest Reviewed. sd1 15:02 Basic Metabolic Profile Reviewed. sd1 15:02 Liver Profile Reviewed. sd1 15:02 Amylase Reviewed. sd1 15:02 Lipase Reviewed. sd1 15:04 CT ABD & PELVIS: IV Contrast Only Ordered. EDMS 15:04 BED REQUEST+ADM ordered. EDMS 15:48 Ondansetron 4 mg IVP once ordered. sd1 15:56 CBC with Diff Reviewed. sd1 15:56 PLATELET ESTIMATE Reviewed. sd1 16:14 morphine 2 mg IVP every 5 minutes; Document pain score/vitals after each dose (Hold if sd1 SBP < 90mmHg) x5 ordered. 19:16 Admission / Observation Status ordered. EDMS 19:16 NPO DIET ordered. EDMS 19:59 Admission / Observation Status ordered. EDMS 06/13 10:25 T-Sheet-- Draft Copy was scanned into [employer] and attached to record. gb 10:25 ECG/EKG was scanned into [employer] and attached to record. gb 10:26 Radiology Report was scanned into [employer] and attached to record. gb Administered Medications: 06/12 14:46 Drug: NS 0.9% 1000 ml [sodium chloride 0.9 % intravenous solution] Route: IV; Rate: 250 mk4 mL/hr; Site: right antecubital; 16:02 Drug: Ondansetron 4 mg [ondansetron HCl 2 mg/mL intravenous solution (2 mL)] Route: kc3 IVP; Site: left forearm; 16:25 Drug: morphine 2 mg [morphine 2 mg/mL intravenous cartridge (1 mL)] Route: IVP; Site: kc3 left forearm; 16:40 Follow up: Pain 2/10 Adult; Pt reports not wanting additional pain medication at this kc3 time. Will continue to monitor. See VS for follow-up. 19:25 Drug: morphine 2 mg [morphine 2 mg/mL intravenous cartridge (1 mL)] Route: IVP; Site: lf1 left forearm; Signatures: Dispatcher [employer] EDImani Holley MD MD sd1 Sherine Alvarez, Reg Reg gb Angelito Nickerson, Reg Reg lg Elizabeth GonzalesRN RN lf1 Nissa Romero RN RN [id number] Amita TamRN RN pml Theresa Bay RN RN mk4 Zaynab Verde RN kc3 The chart was reviewed and I authenticate all verbal orders and agree with the evaluation and treatment provided.Attachments: 14:34 [facility] [place] Payment Agreement 06/13 10:25 T-Sheet-- Draft Copy gb 10:25 ECG/EKG gb Chart Complete MTDD
[2016-06-15] MEDS: METOCLOPRAMIDE INJ 10MG/2ML VIAL (J2765) IV SCH ×5 (00:18→23:06)
[2016-06-15] MEDS: MORPHINE 2 MG/ML 1ML SYRINGE IV PRN ×4 (05:16→23:07)
[2016-06-15 06:00] VITALS: BP 146/78
[2016-06-15] MEDS: ENOXAPARIN 30 MG/0.3 ML SYR (J1650) SC SCH (08:27)
[2016-06-15] MEDS: DOCUSATE SODIUM 100 MG CAP PO SCH (08:31)
[2016-06-15] MEDS: SENNA 8.6 MG TAB (SENOKOT) PO SCH (08:31)
--- NOTE | 2016-06-15 10:10 | IPNPDOC ---
Subjective Date Seen The patient was seen on 06/15/16. Subjective Chief Complaint/HPI The patient is a 70-year-old female admitted with a reason for visit of Abdominal Spasms/ Mestases To The Liver. General: Reports: Fatigue, Malaise, Denies: Chills, Night Sweats Constitutional: Denies: Chills, Fever Eyes: Denies: Pain, Vision change ENT: Denies: Ear Pain, Head Aches Skin: Denies: Lesions, Rash Pulmonary: Denies: Cough, Dyspnea Cardiovascular: Denies: Chest Pain, Palpitations Gastrointestinal: Reports: Nausea, Denies: Abdominal Pain, Vomiting Genitourinary: Denies: Dysuria, Frequency Hematologic: Denies: Bleeding Excessively, Bruising Objective Physical Examination General Exam: Positive: Alert, Cooperative, Mild Distress ENT Exam: Positive: Atraumatic, Mucous membr. moist/pink Chest Exam: Positive: Clear to auscultation, Normal air movement Heart Exam: Positive: Normal S1, Normal S2, Rate Normal Abdomen Exam: Positive: Other (Distended), Negative: Tenderness Extremity Exam: Negative: Swelling, Tenderness Assessment /Plan Plan/VTE VTE Prophylaxis Ordered?: Yes Plan 1. Intractable nausea/vomiting 2/2 Distal Colon Obstruction, with Hx of Underlying Malignancy s/p Recent Small Bowel Resection CT Scan of the Abdomen noted Dr. Amaya of Surgery consulted-->Patient is not a candidate for Surgery given her clinical condition, Hospice recommended Continue IV fluid hydration Zofran, Reglan for Nausea/vomiting In addition, the patient was seen by her medical oncologist Dr. Pritchard yesterday evening, and she has advised her that she will be unable to go through with chemotherapy given her current condition. The patient has decided to go home on hospice, and she has this tentatively set up for June 20. Continue with conservative measures for now 2. Obstructing proximal jejunal mass status post resection Tissue biopsy notable for poorly differentiated, high-grade metastatic adenocarcinoma Follows with Dr. Pritchard of oncology, had first round of chemotherapy last week 3. COPD, stable 4. History of breast cancer status post mastectomy bilaterally DVT prophylaxis-Lovenox Disposition-we will look to transition the patient home on hospice early next week as noted above. VS, I&O, 24H, Fishbone Vital Signs/I&O Vital Signs Date Time Temp Pulse Resp B/P Pulse Ox O2 Delivery O2 Flow Rate FiO2 2/23/17 06:00 98.4 97 18 146/78 97 Room Air I&O- Last 24 Hours up to 6 AM 06/15/16 05:59 Intake Total 1780 ml Output Total 900 ml Balance 880 ml BETH PETERS MD Jun 15, 2016 10:10
[2016-06-15 14:00] VITALS: BP 124/78
[2016-06-15] MEDS: NS 1,000 ML IV SCH (18:10)
[2016-06-15] MEDS: ONDANSETRON 4MG/2ML VIAL (J2405) IV PRN (20:02)
[2016-06-15] MEDS: PANTOPRAZOLE 40MG INJ (PROTONIX) (C9113) IV SCH (20:02)
[2016-06-15 21:05] VITALS: BP 141/85
[2016-06-16 05:25] VITALS: BP 149/78
[2016-06-16] MEDS: METOCLOPRAMIDE INJ 10MG/2ML VIAL (J2765) IV SCH ×4 (05:50→23:41)
[2016-06-16] MEDS: MORPHINE 2 MG/ML 1ML SYRINGE IV PRN (06:03)
[2016-06-16] MEDS: SENNA 8.6 MG TAB (SENOKOT) PO SCH (08:25)
[2016-06-16] MEDS: DOCUSATE SODIUM 100 MG CAP PO SCH (08:25)
[2016-06-16] MEDS: ENOXAPARIN 30 MG/0.3 ML SYR (J1650) SC SCH (08:26)
[2016-06-16] MEDS: NS 1,000 ML IV SCH ×2 (08:27→14:15)
--- NOTE | 2016-06-16 13:33 | IPNPDOC ---
Subjective Date Seen The patient was seen on 06/16/16. Subjective Chief Complaint/HPI The patient is a 70-year-old female admitted with a reason for visit of Abdominal Spasms/ Mestases To The Liver. General: Reports: Fatigue, Malaise, Denies: Chills, Night Sweats Constitutional: Denies: Chills, Fever Eyes: Denies: Pain, Vision change ENT: Denies: Ear Pain, Head Aches Skin: Denies: Lesions, Rash Pulmonary: Denies: Cough, Dyspnea Cardiovascular: Denies: Chest Pain, Palpitations Gastrointestinal: Denies: Nausea, Vomiting Genitourinary: Denies: Dysuria, Frequency Hematologic: Denies: Bleeding Excessively, Bruising Objective Physical Examination General Exam: Positive: Alert, Cooperative, Mild Distress ENT Exam: Positive: Atraumatic, Mucous membr. moist/pink Chest Exam: Positive: Clear to auscultation, Normal air movement Heart Exam: Positive: Normal S1, Normal S2, Rate Normal Abdomen Exam: Positive: Other (Distended), Negative: Tenderness Extremity Exam: Negative: Swelling, Tenderness Assessment /Plan Plan/VTE VTE Prophylaxis Ordered?: Yes Plan 1. Intractable nausea/vomiting 2/2 Distal Colon Obstruction, with Hx of Underlying Malignancy s/p Recent Small Bowel Resection CT Scan of the Abdomen noted Dr. Amaya of Surgery consulted-->Patient is not a candidate for Surgery given her clinical condition, Hospice recommended Continue IV fluid hydration Zofran, Reglan for Nausea/vomiting In addition, the patient was seen by her medical oncologist Dr. Pritchard yesterday evening, and she has advised her that she will be unable to go through with chemotherapy given her current condition. The patient has decided to go home on hospice, and she has this tentatively set up for June 20. Continue with conservative measures for now 2. Obstructing proximal jejunal mass status post resection Tissue biopsy notable for poorly differentiated, high-grade metastatic adenocarcinoma Follows with Dr. Pritchard of oncology, had first round of chemotherapy last week 3. COPD, stable 4. History of breast cancer status post mastectomy bilaterally DVT prophylaxis-Lovenox Disposition-we will look to transition the patient home on hospice early next week as noted above. VS, I&O, 24H, Fishbone Vital Signs/I&O Vital Signs Date Time Temp Pulse Resp B/P Pulse Ox O2 Delivery O2 Flow Rate FiO2 06/16/16 06:13 14 06/16/16 05:25 97.0 94 149/78 94 Room Air I&O- Last 24 Hours up to 6 AM 06/16/16 06:00 Intake Total 635 ml Output Total 800 ml Balance -165 ml BETH PETERS MD Jun 16, 2016 13:33
[2016-06-16 14:00] VITALS: BP 142/86
[2016-06-16] MEDS: SCOPOLAMINE 1.5 MG TRANSDERMAL TOP SCH (14:57)
[2016-06-16] MEDS ORDERED: LORazepam 2 MG/ML VIAL (J2060) IV PRN (16:45)
[2016-06-16] MEDS: PANTOPRAZOLE 40MG INJ (PROTONIX) (C9113) IV SCH (21:00)
[2016-06-16 21:05] VITALS: BP 120/71
[2016-06-17] MEDS: METOCLOPRAMIDE INJ 10MG/2ML VIAL (J2765) IV SCH ×4 (04:08→23:31)
[2016-06-17] MEDS: ONDANSETRON 4MG/2ML VIAL (J2405) IV PRN ×2 (04:08→23:30)
[2016-06-17 06:11] LABS: MEAN CORPUSCULAR HEMOGLOBIN 23.9 pg (27.0-33.0); MEAN CORPUSCULAR HGB CONC 30.5 g/dl (32.0-36.5); MEAN CORPUSCULAR VOLUME 78.4 fl (80.0-96.0); RED CELL DISTRIBUTION WIDTH 18.3 % (11.5-14.5); WHITE BLOOD COUNT 21.1 K/mm3 (4.0-10.0)
[2016-06-17 06:15] VITALS: BP 115/67
[2016-06-17 06:25] LABS: ANION GAP 15 MEQ/L (8-16); BLOOD UREA NITROGEN 25 MG/DL (7-18); CALCIUM LEVEL 7.8 MG/DL (8.8-10.2); CARBON DIOXIDE LEVEL 22 MEQ/L (21-32); CHLORIDE LEVEL 115 MEQ/L (98-107); CREATININE FOR GFR 0.63 MG/DL (0.55-1.02); GLOMERULAR FILTRATION RATE > 60.0 (>45); GLUCOSE, FASTING 101 MG/DL (80-110); MAGNESIUM LEVEL 1.9 MG/DL (1.8-2.4); SODIUM LEVEL 152 MEQ/L (136-145)
[2016-06-17 06:44] LABS: POTASSIUM SERUM 2.6 MEQ/L (3.5-5.1)
[2016-06-17] MEDS: KCL 10MEQ IN 100ML SWI (KRUN) 10 MEQ in APPROPRIATE DILUENT 1 EA IV SCH ×8 (07:52→13:24)
--- NOTE | 2016-06-17 09:56 | IPNPDOC ---
Subjective Date Seen The patient was seen on 06/17/16. Subjective Chief Complaint/HPI The patient is a 70-year-old female admitted with a reason for visit of Abdominal Spasms/ Mestases To The Liver. General: Reports: Fatigue, Malaise, Denies: Chills, Night Sweats Constitutional: Denies: Chills, Fever Eyes: Denies: Pain, Vision change ENT: Denies: Ear Pain, Head Aches Skin: Denies: Lesions, Rash Pulmonary: Denies: Cough, Dyspnea Cardiovascular: Denies: Chest Pain, Palpitations Gastrointestinal: Reports: Nausea, Denies: Abdominal Pain, Vomiting Genitourinary: Denies: Dysuria, Frequency Hematologic: Denies: Bleeding Excessively, Bruising Objective Physical Examination General Exam: Positive: Alert, Cooperative, Mild Distress ENT Exam: Positive: Atraumatic, Mucous membr. moist/pink Chest Exam: Positive: Clear to auscultation, Normal air movement Heart Exam: Positive: Normal S1, Normal S2, Rate Normal Abdomen Exam: Positive: Other (Distended), Negative: Tenderness Extremity Exam: Negative: Swelling, Tenderness Assessment /Plan Plan/VTE VTE Prophylaxis Ordered?: Yes Plan Intractable nausea/vomiting 2/2 Distal Colon Obstruction, with Hx of Underlying Malignancy s/p Recent Small Bowel Resection CT Scan of the Abdomen noted Dr. Amaya of Surgery consulted-->Patient is not a candidate for Surgery given her clinical condition, Hospice recommended Continue IV fluid hydration Zofran, Reglan for Nausea/vomiting In addition, the patient was seen by her medical oncologist Dr. Pritchard yesterday evening, and she has advised her that she will be unable to go through with chemotherapy given her current condition. The patient has decided to go home on hospice, and she has this tentatively set up for June 20. Continue with conservative measures for now Hypernatremia, Hypokalemia 2/2 Decreased PO Intake IVF switched to D5W/1/2 NS K Replacement initiated Obstructing proximal jejunal mass status post resection Tissue biopsy notable for poorly differentiated, high-grade metastatic adenocarcinoma Follows with Dr. Pritchard of oncology, had first round of chemotherapy last week COPD, stable History of breast cancer status post mastectomy bilaterally DVT prophylaxis-Lovenox Disposition-we will look to transition the patient home on hospice early next week as noted above. VS, I&O, 24H, Fishbone Vital Signs/I&O Vital Signs Date Time Temp Pulse Resp B/P Pulse Ox O2 Delivery O2 Flow Rate FiO2 06/17/16 06:15 97.5 102 18 115/67 97 Room Air I&O- Last 24 Hours up to 6 AM 06/17/16 05:59 Intake Total 1250 ml Output Total 1275 ml Balance -25 ml Laboratory Data 24H LABS Laboratory Tests 2 06/17/16 05:47: Anion Gap 15, Blood Urea Nitrogen 25H, Creatinine 0.63, Sodium Level 152H, Potassium Level 2.6*L, Chloride Level 115H, Carbon Dioxide Level 22, Calcium Level 7.8L, Glomerular Filtration Rate > 60.0, Magnesium Level 1.9 CBC/BMP Laboratory Tests 06/17/16 05:47 Calcium Level 7.8 L, Red Blood Count 3.98 L, Mean Corpuscular Volume 78.4 L, Mean Corpuscular Hemoglobin 23.9 L, Mean Corpuscular Hemoglobin Concent 30.5 L, Red Cell Distribution Width 18.3 H BETH PETERS MD Jun 17, 2016 09:56
[2016-06-17 14:00] VITALS: BP 110/62
[2016-06-17] MEDS: D5W/0.45% SODIUM CHLORIDE 1,000 ML IV SCH (15:27)
[2016-06-17] MEDS: PANTOPRAZOLE 40MG INJ (PROTONIX) (C9113) IV SCH (20:34)
[2016-06-17 21:00] VITALS: BP 138/86
[2016-06-18] MEDS: METOCLOPRAMIDE INJ 10MG/2ML VIAL (J2765) IV SCH ×3 (05:36→17:42)
[2016-06-18 06:00] VITALS: BP 127/70
[2016-06-18 06:05] LABS: ANION GAP 11 MEQ/L (8-16); BLOOD UREA NITROGEN 25 MG/DL (7-18); CALCIUM LEVEL 7.8 MG/DL (8.8-10.2); CARBON DIOXIDE LEVEL 26 MEQ/L (21-32); CHLORIDE LEVEL 113 MEQ/L (98-107); CREATININE FOR GFR 0.62 MG/DL (0.55-1.02); GLOMERULAR FILTRATION RATE > 60.0 (>45); GLUCOSE, FASTING 115 MG/DL (80-110); SODIUM LEVEL 150 MEQ/L (136-145)
[2016-06-18 06:24] LABS: POTASSIUM SERUM 2.9 MEQ/L (3.5-5.1)
[2016-06-18] MEDS: KCL 10MEQ IN 100ML SWI (KRUN) 10 MEQ in APPROPRIATE DILUENT 1 EA IV SCH ×10 (06:52→21:00)
[2016-06-18] MEDS ORDERED: POTASSIUM CHLORIDE 10% LIQ 20 MEQ/15 ML UDC PO ONE (08:45)
--- NOTE | 2016-06-18 11:12 | IPNPDOC ---
Subjective Date Seen The patient was seen on 06/18/16. Subjective Chief Complaint/HPI The patient is a 70-year-old female admitted with a reason for visit of Abdominal Spasms/ Mestases To The Liver. General: Reports: Fatigue, Malaise, Denies: Chills, Night Sweats Constitutional: Denies: Chills, Fever Eyes: Denies: Pain, Vision change ENT: Denies: Ear Pain, Head Aches Skin: Denies: Lesions, Rash Pulmonary: Denies: Cough, Dyspnea Cardiovascular: Denies: Chest Pain, Palpitations Gastrointestinal: Reports: Nausea, Vomiting, Denies: Abdominal Pain Objective Physical Examination General Exam: Positive: Alert, Cooperative, Mild Distress ENT Exam: Positive: Atraumatic, Mucous membr. moist/pink Chest Exam: Positive: Clear to auscultation, Normal air movement Heart Exam: Positive: Normal S1, Normal S2, Rate Normal Abdomen Exam: Positive: Other (Distended), Negative: Tenderness Extremity Exam: Negative: Swelling, Tenderness Assessment /Plan Plan/VTE VTE Prophylaxis Ordered?: Yes Plan Intractable nausea/vomiting 2/2 Distal Colon Obstruction, with Hx of Underlying Malignancy s/p Recent Small Bowel Resection CT Scan of the Abdomen noted Dr. Amaya of Surgery consulted-->Patient is not a candidate for Surgery given her clinical condition, Hospice recommended Continue IV fluid hydration Zofran, Reglan for Nausea/vomiting In addition, the patient was seen by her medical oncologist Dr. Pritchard yesterday evening, and she has advised her that she will be unable to go through with chemotherapy given her current condition. The patient has decided to go home on hospice, and she has this tentatively set up for June 20. Continue with conservative measures for now Hypernatremia, Hypokalemia 2/2 Decreased PO Intake IVF switched to D5W/1/2 NS K Replacement initiated Obstructing proximal jejunal mass status post resection Tissue biopsy notable for poorly differentiated, high-grade metastatic adenocarcinoma Follows with Dr. Pritchard of oncology, had first round of chemotherapy last week COPD, stable History of breast cancer status post mastectomy bilaterally DVT prophylaxis-Lovenox Disposition-we will look to transition the patient home on hospice on Sunday VS, I&O, 24H, Fishbone Vital Signs/I&O Vital Signs Date Time Temp Pulse Resp B/P Pulse Ox O2 Delivery O2 Flow Rate FiO2 2/26/17 06:00 96.7 98 17 127/70 95 Room Air I&O- Last 24 Hours up to 6 AM 06/18/16 05:59 Intake Total 1580 ml Output Total 580 ml Balance 1000 ml Laboratory Data 24H LABS Laboratory Tests 2 06/18/16 05:04: Anion Gap 11, Blood Urea Nitrogen 25H, Creatinine 0.62, Sodium Level 150H, Potassium Level 2.9*L, Chloride Level 113H, Carbon Dioxide Level 26, Calcium Level 7.8L, Glomerular Filtration Rate > 60.0 CBC/BMP Laboratory Tests 06/18/16 05:04 Calcium Level 7.8 L BETH PETERS MD Jun 18, 2016 11:12
[2016-06-18] MEDS: MORPHINE 2 MG/ML 1ML SYRINGE IV PRN (16:11)
[2016-06-18] MEDS: ONDANSETRON 4MG/2ML VIAL (J2405) IV PRN (16:11)
[2016-06-18] MEDS: D5W/0.45% SODIUM CHLORIDE 1,000 ML IV SCH (16:11)
[2016-06-18] MEDS ORDERED: KCL 10MEQ IN 100ML SWI (KRUN) 10 MEQ in APPROPRIATE DILUENT 1 EA IV SCH ×2 (18:00)
[2016-06-18] MEDS: PANTOPRAZOLE 40MG INJ (PROTONIX) (C9113) IV SCH (21:33)
[2016-06-18 22:00] VITALS: BP 118/62
[2016-06-19] MEDS: METOCLOPRAMIDE INJ 10MG/2ML VIAL (J2765) IV SCH ×2 (00:57→06:52)
[2016-06-19] MEDS: MORPHINE 2 MG/ML 1ML SYRINGE IV PRN (01:58)
[2016-06-19 06:00] VITALS: BP 120/63
[2016-06-19] MEDS: D5W/0.45% SODIUM CHLORIDE 1,000 ML IV SCH (07:43)
[2016-06-19] MEDS ORDERED: ATRO1OPD PO (09:35)
[2016-06-19] MEDS ORDERED: LORA1TAB12 PO (09:35)
[2016-06-19] MEDS ORDERED: MORP1SOL PO (09:35)
[2016-06-19] MEDS ORDERED: TRAN1.5D2 TOP (09:35)
[2016-06-19] MEDS: SCOPOLAMINE 1.5 MG TRANSDERMAL TOP SCH (09:40)
--- NOTE | 2016-06-19 13:37 | DS.PDOC ---
Discharge Summary General Date of Admission Jun 12, 2016 at 19:58 Date of Discharge 06/20/16 Specialist/Consultants Involve Dr. mAaya of surgery, Dr. Pritchard of medical oncology Discharge Summary PROCEDURES PERFORMED DURING STAY: None. COMPLICATIONS/CHIEF COMPLAINT: Abdominal Spasms/ Mestases To The Liver DISCHARGE DIAGNOSES: 1. . Distal colonic obstruction, with history of underlying poorly differentiated adenocarcinoma of the small bowel 2. . 3. . SECONDARY DIAGNOSES: 1. .Distal colonic obstruction, with history of underlying poorly differentiated adenocarcinoma of the small bowel 2. . 3. . HISTORY OF PRESENT ILLNESS/HOSPITAL COURSE: 62-year-old female with past medical history of bilateral breast cancer status post mastectomy, dyslipidemia, recent small bowel obstruction 2 status post colectomy and diagnosis of poorly differentiated adenocarcinoma of the small intestine status post one round of chemotherapy the week prior to presentation to the ER came to the ED on 06/12 for complaints of epigastric pain with spasms. During this time, the patient states that her appetite has been very poor and she has not been eating much. In addition, the patient also notes nausea and bilious vomiting. In the ER, a CT scan of the abdomen was done which revealed ascites, mesenteric infiltration, mesenteric adenopathy, hyperenhancing bowel wall, fluid filled bowel, and a normal hepatic lesions likely representing underlying malignancy and metastatic disease was noted. The patient was admitted to the hospitalist service for further evaluation and management of the same. During the patient's stay in the hospital here, she was evaluated by Dr. Amaya of surgery, who recommended that the patient is not a candidate for any kind of surgical intervention given her underlying malignancy. Dr. Pritchard of medical oncology was consulted, and she stated that the patient is not a candidate for any chemotherapy going forward given the CT scan findings. Unfortunately, the patient's epigastric spasms persisted during her stay here. She was not able to tolerate a by mouth diet, as she became nauseous and had more episodes of vomiting. I did discuss the option of hospice care with the patient on 06/13/16. At this time, the patient has decided to go home with hospice care. The patient has been managed here with conservative measures, as she is scheduled to go home with hospice on 06/20/16. ALLERGIES: Please see below. PHYSICAL EXAMINATION ON DISCHARGE: VITAL SIGNS: Please see below. General Exam: Positive: Alert, Cooperative, Mild Distress ENT Exam: Positive: Atraumatic, Mucous membr. moist/pink Chest Exam: Positive: Clear to auscultation, Normal air movement Heart Exam: Positive: Normal S1, Normal S2, Rate Normal Abdomen Exam: Positive: Other (Distended), Negative: Tenderness Extremity Exam: Negative: Swelling, Tenderness LABORATORY DATA: Please see below. IMAGING: Findings: Current examination demonstrates moderate ascites, diffuse mesenteric adenopathy and suspected mesenteric infiltration along with irregular enhancing loops of bowel as well as diffusely fluid-filled bowel and evidence for prior partial resection and anastomoses in the right lower quadrant. Innumerable hepatic hypodensities are now identified which were essentially non apparent on contrast enhanced study dated 04/23/2016. The above findings are most suggestive of malignancy and metastatic disease. Spleen, pancreas, bilateral adrenal glands are normal. Kidneys demonstrate few hypodensities suggesting cysts. Cholelithiasis noted. No free air. No discrete drainable abscess. Vasculature without evidence for aneurysm. Musculoskeletal structures demonstrate age-related degenerative changes. Lung bases are relatively clear. Evidence for prior bilateral mastectomy. Impression: Above findings including ascites, mesenteric infiltration, mesenteric adenopathy , hyperenhancing bowel wall, fluid filled bowel, and new innumerable hepatic lesions likely represent underlying malignancy and metastatic disease. VTE Prophylaxis ordered?: Yes DISCHARGE CONDITION: Stable. DISPOSITION: . House of hospice ACTIVITY: .As tolerated DIET: . As tolerated DISCHARGE PLAN AND INSTRUCTIONS: 1. .Patient to follow up with Hospice at home 2. . 3. . TIME SPENT ON DISCHARGE: Greater than 30 minutes. Vital Signs/I&Os Vital Signs Date Time Temp Pulse Resp B/P Pulse Ox O2 Delivery O2 Flow Rate FiO2 06/19/16 06:00 96.6 178 17 120/63 97 Room Air I&O- Last 24 Hours up to 6 AM 06/19/16 06:00 Intake Total 1370 ml Output Total 850 ml Balance 520 ml Medications Scheduled Docusate Sodium (Colace) 100 Mg Cap 100 MG PO DAILY (Reported) Scopolamine (Transderm-Scop) 1.5 Mg Dis 1.5 MG TOP Q72H Senna (Senna Lax) 8.6 Mg Tab 1 TAB PO DAILY (Reported) Scheduled PRN Atropine Sulfate (Atropine Sulfate) 1 % Sonia 1-2 DROP PO Q2H PRN PRN TERMINAL SECRETIONS Use sublingually if unable to swallow MDD = 36 drops Lorazepam (Lorazepam) 1 Mg Tab 0.5 TAB PO Q4H PRN PRN ANXIETY/AGITATION Use sublingually if unable to swallow MDD = 3 mg Morphine Sulfate (Morphine Sulfate Concentrate) 10 Mg/0.5 Ml Conc 0.25-1 ML PO Q2H PRN PRN PAIN OR DYSPNEA Use sublingually if unable to swallow MDD = 12 ml Ondansetron HCl (Ondansetron HCl) 8 Mg Tab 8 MG PO BID PRN PRN NAUSEA OR VOMITING (Reported) Prochlorperazine Maleate (Prochlorperazine Maleate) 10 Mg Tab 10 MG PO Q6H PRN PRN NAUSEA OR VOMITING (Reported) Allergies Coded Allergies: No Known Allergies (Unverified , 05/25/16) BETH PETERS MD Jun 19, 2016 13:37
[2016-06-19 14:00] VITALS: BP 125/65
[2016-06-19] MEDS ORDERED: MORPHINE 10MG/0.5ML ORAL CONCENTRATE SOLUTION U/D SL PRN (14:15)
[2016-06-19] MEDS ORDERED: LORazepam 1 MG TAB PO PRN (14:15)
[2016-06-19 22:00] VITALS: BP 120/68
[2016-06-20 06:00] VITALS: BP 118/72
== END 2016-06-20 09:45 | disposition hospice, home (50) | DRG 389 ==
LOC: M ED 13:34 → M ED INP 19:58 → OBSVTOIN 19:58 → M MSPAV 21:43
PROVIDERS: ADMIT Internal Medicine; ATTEND Internal Medicine
DX: K56.60 Unspecified intestinal obstruction (principal); C78.4 Secondary malignant neoplasm of small intestine; R18.8 Other ascites; C78.7 Secondary malignant neoplasm of liver and intrahepatic bile duct; C78.6 Secondary malignant neoplasm of retroperitoneum and peritoneum; E87.0 Hyperosmolality and hypernatremia; E87.6 Hypokalemia; E78.5 Hyperlipidemia, unspecified; Z66 Do not resuscitate; Z85.3 Personal history of malignant neoplasm of breast; Z90.13 Acquired absence of bilateral breasts and nipples; Z90.710 Acquired absence of both cervix and uterus; Z90.49 Acquired absence of other specified parts of digestive tract; J44.9 Chronic obstructive pulmonary disease, unspecified; Z79.899 Other long term (current) drug therapy